=== PATIENT | male | born 1960 | race Hispanic/Latino ===

== ENCOUNTER 2019-03-24 19:34 | Inpatient (IN) | payer OTHER ==
[2019-03-24] MEDS ORDERED: SODIUM CHLORIDE 0.9% 500 ML 500 ML IV ONE (20:12)
--- NOTE | 2019-03-24 20:15 | Emergency Department Report ---
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 Patient apparently refused to take his medications. Patient denies this. Patient complains of right arm pain which is ongoing and worse with movement. Patient is oriented to hospital, self, day of the week, but not to year. States year is 1969.. Accu-Chek in route [address]. No previous medical record available for review. - Related Data Allergies Allergy/AdvReac Type Severity Reaction Status Date / Time No Known Allergies Allergy Unverified 03/24/19 20:19 ED Review of Systems ROS: Stated complaint: AMS,REFUSING TO TAKE MEDS Other details as noted in HPI Comment: All other systems reviewed and negative ED Physical Exam - Other Other exam information: General: No limitations, patient is alert in no acute distress Head exam: Atraumatic, normocephalic Eyes exam: Normal appearance, pupils equal reactive to light, extraocular movements intact ENT: Moist mucous membrane Neck exam: Normal inspection, full range of motion, no meningismus nontender Respiratory exam: Clear to auscultation bilateral Cardiovascular: Normal rate and rhythm Abdomen: Soft, nondistended, and nontender, with normal bowel sounds, no rebound, or guarding Extremity: Right arm held abducted and flexed at the elbow. Contracted with limited passive range. No active range of movement. Pain with palpation and movement. Back: Normal Inspection, full range of motion, no tenderness Neurologic: Alert, oriented 2, right-sided facial droop, dysarthria, right arm with minimal movement and contracted, no antigravity movement of right leg. Left arm and leg with 5/5 strength in intact sensation. Psychiatric: normal affect, normal mood Skin: Warm, dry, intact ED Course Vital Signs 03/24/19 03/24/19 03/24/19 20:02 20:09 20:21 Temperature 97.7 F Pulse Rate 94 H Respiratory 17 17 Rate Blood Pressure 97/69 Blood Pressure 97/69 [Left] O2 Sat by Pulse 99 98 98 Oximetry 03/24/19 03/24/19 03/24/19 20:31 21:30 22:00 Temperature Pulse Rate 95 H 85 87 Respiratory 13 19 16 Rate Blood Pressure 98/71 102/65 103/66 Blood Pressure [Left] O2 Sat by Pulse 95 96 Oximetry 03/24/19 22:30 Temperature Pulse Rate 80 Respiratory 14 Rate Blood Pressure 104/70 Blood Pressure [Left] O2 Sat by Pulse Oximetry - Consultations Consultation #1: 03/24/19 21:56 case d/w rubber process hand Dr. David suero mild elevation in troponin is sitting up in insufficiency. EKG reviewed in signs for acute ischemic findings. Repeat troponin is ordered. Aspirin provided - Lab Data Result diagrams: 03/24/19 20:45 03/24/19 20:45 Lab Results 03/24/19 03/24/19 03/24/19 Range/Units 20:45 20:45 20:45 WBC 11.0 (4.5-11.0) K/mm3 RBC 4.49 (3.65-5.03) M/mm3 Hgb 13.3 (11.8-15.2) gm/dl Hct 38.1 (35.5-45.6) % MCV 85 (84-94) fl MCH 30 (28-32) pg MCHC 35 H (32-34) % RDW 14.0 (13.2-15.2) % Plt Count 232 (140-440) K/mm3 Lymph % (Auto) 21.2 (13.4-35.0) % [place] % (Auto) 8.9 H (0.0-7.3) % Eos % (Auto) 1.5 (0.0-4.3) % Baso % (Auto) 0.6 (0.0-1.8) % Lymph # 2.3 (1.2-5.4) K/mm3 [place] # 1.0 H (0.0-0.8) K/mm3 Eos # 0.2 (0.0-0.4) K/mm3 Baso # 0.1 (0.0-0.1) K/mm3 Seg Neutrophils % 67.8 (40.0-70.0) % Seg Neutrophils # 7.4 (1.8-7.7) K/mm3 Sodium 126 L (137-145) mmol/L Potassium 4.7 (3.6-5.0) mmol/L Chloride 88.0 L (98-107) mmol/L Carbon Dioxide 21 L (22-30) mmol/L Anion Gap 22 mmol/L BUN 46 H (9-20) mg/dL Creatinine 1.8 H (0.8-1.5) mg/dL Estimated GFR 39 ml/min BUN/Creatinine Ratio 26 % Glucose 107 H (75-100) mg/dL Calcium 9.5 (8.4-10.2) mg/dL Total Bilirubin 0.50 (0.1-1.2) mg/dL AST 16 (5-40) units/L ALT 13 (7-56) units/L Alkaline Phosphatase 57 (35-129) units/L Troponin T (0.00-0.029) ng/mL Total Protein 7.0 (6.3-8.2) g/dL Albumin 3.7 L (3.9-5) g/dL Albumin/Globulin Ratio 1.1 % Triglycerides (2-149) mg/dL Cholesterol (50-199) mg/dL LDL Cholesterol Direct (50-130) mg/dL HDL Cholesterol (40-59) mg/dL Cholesterol/HDL Ratio % Valproic Acid 9.4 L (50-100) ug/mL 03/24/19 Range/Units 20:48 WBC (4.5-11.0) K/mm3 RBC (3.65-5.03) M/mm3 Hgb (11.8-15.2) gm/dl Hct (35.5-45.6) % MCV (84-94) fl MCH (28-32) pg MCHC (32-34) % RDW (13.2-15.2) % Plt Count (140-440) K/mm3 Lymph % (Auto) (13.4-35.0) % [place] % (Auto) (0.0-7.3) % Eos % (Auto) (0.0-4.3) % Baso % (Auto) (0.0-1.8) % Lymph # (1.2-5.4) K/mm3 [place] # (0.0-0.8) K/mm3 Eos # (0.0-0.4) K/mm3 Baso # (0.0-0.1) K/mm3 Seg Neutrophils % (40.0-70.0) % Seg Neutrophils # (1.8-7.7) K/mm3 Sodium (137-145) mmol/L Potassium (3.6-5.0) mmol/L Chloride (98-107) mmol/L Carbon Dioxide (22-30) mmol/L Anion Gap mmol/L BUN (9-20) mg/dL Creatinine (0.8-1.5) mg/dL Estimated GFR ml/min BUN/Creatinine Ratio % Glucose (75-100) mg/dL Calcium (8.4-10.2) mg/dL Total Bilirubin (0.1-1.2) mg/dL AST (5-40) units/L ALT (7-56) units/L Alkaline Phosphatase (35-129) units/L Troponin T 0.033 H (0.00-0.029) ng/mL Total Protein (6.3-8.2) g/dL Albumin (3.9-5) g/dL Albumin/Globulin Ratio % Triglycerides 197 H (2-149) mg/dL Cholesterol 131 (50-199) mg/dL LDL Cholesterol Direct 67 (50-130) mg/dL HDL Cholesterol 33 L (40-59) mg/dL Cholesterol/HDL Ratio 3.96 % Valproic Acid (50-100) ug/mL - EKG Data -: EKG Interpreted by Md EKG shows normal: sinus rhythm, ST-T waves (no stemi) - Radiology Data Radiology results: report reviewed xray right shoulder, right humerus, and right forearm are all without acute findings CT head/brain wo con INDICATION / CLINICAL INFORMATION: 58 years Male; recent cva, mild ams. TECHNIQUE: Routine CT head without contrast. All CT scans at this location are performed using CT dose reduction for ALARA by means of automated exposure control. COMPARISON: None. FINDINGS: BRAIN / INTRACRANIAL CONTENTS: Low density area seen in the gangliocapsular region on the left, extending towards the left lateral thalamic region. Old hemorrhage in this location might be consideration. Pre and postcontrast MRI of the brain might be helpful for further evaluation, if clinically warranted. There is minimal mass effect with this finding. No midline shift seen. This area measures approximately 2.7 cm craniocaudally. Otherwise, no acute hemorrhage, mass effect, midline shift, hydrocephalus, or acute, large territorial infarct. Minimal cerebral atrophy. There may be a small cavernous malformation in the inessa-punctate area of calcification noted. There are hacl-[id number] areas of decreased attenuation in the white matter of the cerebral hemispheres, as well as the gangliocapsular regions. These are nonspecific findings and may be related to microangiopathy (hypertension, diabetes, atherosclerosis), given the patient's age. It might be difficult to evaluate for small areas of ischemia without diffusion imaging by MRI. CRANIOCERVICAL JUNCTION: No significant abnormality. ORBITS: No significant abnormality of visualized orbits. SINUSES / MASTOIDS: Prior mastoidectomy suggested on the left. There is mild mucosal thickening in the remaining mastoids bilaterally. ADDITIONAL FINDINGS: Atherosclerotic disease is seen in the anterior circulation. IMPRESSION: 1. Changes in the left gangliocapsular region as described above. Pre and postcontrast MRI of the brain might be helpful for further evaluation. 2. Otherwise, no focal mass, hemorrhage, hydrocephalus, or acute, large te rritorial infarct seen. - Medical Decision Making Plan to admit the hospital for mild hyponatremia, renal insufficiency, dehydration, and elevation in troponin. EKG without acute ischemic findings as verified by on-call rubber process hand. Repeat troponin is pending. Patient provided aspirin. Will be admitted to hospice service for further treatment. Normal saline hydration order. Ua collection pending at dispo - Differential Diagnosis encephalopathy, dehydration, Critical Care Time: No Critical care attestation.: If time is entered above; I have spent that time in minutes in the direct care of this critically ill patient, excluding procedure time. ED Disposition Clinical Impression: Altered mental status, Hyponatremia, Renal insufficiency, Dehydration, Elevated troponin, History of hemorrhagic cerebrovascular accident (CVA) with residual deficit, Right sided weakness Disposition: OP ADMIT IP TO THIS HOSP Is pt being admited?: Yes Condition: Stable Time of Disposition: 23:06 (Dr Bennett/hosp)
[2019-03-24 20:59] LABS: Basophils # (Auto) 0.1 K/mm3 (0.0-0.1); Basophils % (Auto) 0.6 % (0.0-1.8); Eosinophils # (Auto) 0.2 K/mm3 (0.0-0.4); Eosinophils % (Auto) 1.5 % (0.0-4.3); Hematocrit 38.1 % (35.5-45.6); Hemoglobin 13.3 gm/dl (11.8-15.2); Lymphocytes # (Auto) 2.3 K/mm3 (1.2-5.4); Lymphocytes % (Auto) 21.2 % (13.4-35.0); Mean Corpuscular HGB Conc 35 % (32-34); Mean Corpuscular Volume 85 fl (84-94); Monocytes % (Auto) 8.9 % (0.0-7.3); Platelet Count 232 K/mm3 (140-440); Red Blood Count 4.49 M/mm3 (3.65-5.03)
--- NOTE | 2019-03-24 21:17 | XRay Report ---
RIGHT SHOULDER 3 VIEWS INDICATION / CLINICAL INFORMATION: arm pain, cva COMPARISON: None available. FINDINGS: BONES / JOINT(S): No acute fracture or subluxation. Mild AC joint DJD. SOFT TISSUES: No significant abnormality. ADDITIONAL FINDINGS: None. Signer Name: Grabiel Dhaliwal MD Signed: 03/24/2019 9:12 PM Workstation Name: [id number]
--- NOTE | 2019-03-24 21:19 | XRay Report ---
RIGHT FOREARM ONE VIEW INDICATION / CLINICAL INFORMATION: arm pain, cva COMPARISON: None available. FINDINGS: BONES / JOINT(S): No acute fracture or subluxation. No significant arthritis. SOFT TISSUES: No significant abnormality. ADDITIONAL FINDINGS: None. Signer Name: Grabiel Dhaliwal MD Signed: 03/24/2019 9:15 PM Workstation Name: [id number]
--- NOTE | 2019-03-24 21:20 | XRay Report ---
RIGHT HUMERUS ONE VIEW INDICATION / CLINICAL INFORMATION: arm pain cva COMPARISON: None available. FINDINGS: BONES / JOINT(S): No acute fracture or subluxation. No significant arthritis. SOFT TISSUES: No significant abnormality. ADDITIONAL FINDINGS: None. Signer Name: Grabiel Dhaliwal MD Signed: 03/24/2019 9:16 PM Workstation Name: [id number]
[2019-03-24 21:25] LABS: Albumin 3.7 g/dL (3.9-5); Calcium 9.5 mg/dL (8.4-10.2)
[2019-03-24] MEDS ORDERED: ASPIRIN 325 MG TAB PO ONE (21:40)
[2019-03-24 21:41] LABS: Chol/HDL Ratio 3.96 %
[2019-03-24] MEDS ORDERED: SODIUM CHLORIDE 0.9% 1000 ML 1,000 ML IV ONE (21:41)
--- NOTE | 2019-03-24 22:19 | Cat Scan Report ---
CT head/brain wo con INDICATION / CLINICAL INFORMATION: 58 years Male; recent cva, mild ams. TECHNIQUE: Routine CT head without contrast. All CT scans at this location are performed using CT dos e reduction for ALARA by means of automated exposure control. COMPARISON: None. FINDINGS: BRAIN / INTRACRANIAL CONTENTS: Low density area seen in the gangliocapsular region on the left, exten ding towards the left lateral thalamic region. Old hemorrhage in this location might be consideration . Pre and postcontrast MRI of the brain might be helpful for further evaluation, if clinically warran tee. There is minimal mass effect with this finding. No midline shift seen. This area measures approx imately 2.7 cm craniocaudally. Otherwise, no acute hemorrhage, mass effect, midline shift, hydrocephalus, or acute, large territoria l infarct. Minimal cerebral atrophy. There may be a small cavernous malformation in the inessa-punctate area of ca lcification noted. There are [id number]-[id number] areas of decreased attenuation in the white matter of the cerebral hemisph eres, as well as the gangliocapsular regions. These are nonspecific findings and may be related to mi croangiopathy (hypertension, diabetes, atherosclerosis), given the patient's age. It might be difficu lt to evaluate for small areas of ischemia without diffusion imaging by MRI. CRANIOCERVICAL JUNCTION: No significant abnormality. ORBITS: No significant abnormality of visualized orbits. SINUSES / MASTOIDS: Prior mastoidectomy suggested on the left. There is mild mucosal thickening in th e remaining mastoids bilaterally. ADDITIONAL FINDINGS: Atherosclerotic disease is seen in the anterior circulation. IMPRESSION: 1. Changes in the left gangliocapsular region as described above. Pre and postcontrast MRI of the bra in might be helpful for further evaluation. 2. Otherwise, no focal mass, hemorrhage, hydrocephalus, or acute, large territorial infarct seen. Signer Name: Praveen Evans MD, III Signed: 03/24/2019 10:15 PM Workstation Name: [id number]
[2019-03-25] MEDS ORDERED: MORPHINE 2 MG/1 ML INJ IV PRN (00:08)
[2019-03-25] MEDS ORDERED: MAGNESIUM HYDROXIDE (MOM) ORAL LIQD UDC PO PRN (00:08)
[2019-03-25] MEDS ORDERED: ONDANSETRON 4 MG/2 ML INJ IV PRN (00:08)
[2019-03-25 00:59] LABS: Basophils # (Auto) 0.1 K/mm3 (0.0-0.1); Basophils % (Auto) 0.5 % (0.0-1.8); Eosinophils # (Auto) 0.2 K/mm3 (0.0-0.4); Eosinophils % (Auto) 1.6 % (0.0-4.3); Hematocrit 35.3 % (35.5-45.6); Hemoglobin 12.5 gm/dl (11.8-15.2); Lymphocytes # (Auto) 2.4 K/mm3 (1.2-5.4); Lymphocytes % (Auto) 24.1 % (13.4-35.0); Mean Corpuscular HGB Conc 35 % (32-34); Mean Corpuscular Volume 84 fl (84-94); Monocytes # (Auto) 0.8 K/mm3 (0.0-0.8); Monocytes % (Auto) 7.8 % (0.0-7.3); Platelet Count 197 K/mm3 (140-440); Red Blood Count 4.18 M/mm3 (3.65-5.03); Red Cell Distribution Width 13.9 % (13.2-15.2)
[2019-03-25 01:18] LABS: Calcium 8.7 mg/dL (8.4-10.2)
[2019-03-25 01:26] LABS: Bacteria,Urine 1+ /HPF (Negative); Bilirubin,Urine NEG (Negative); Blood,Urine MOD (Negative); Color,Urine Yellow (Yellow); Urobilinogen,Urine < 2.0 mg/dL (<2.0)
[2019-03-25 01:28] LABS: WBC,Urine > 182.0 /HPF (0.0-6.0)
--- NOTE | 2019-03-25 02:20 | History and Physical Report ---
History of Present Illness Date of examination: 03/24/19 Date of admission: 03/25/19 00:12 Chief complaint: Altered mental status History of present illness: 58-year-old male with known history of CVA in the past with right-sided weakness, hypertension, history of depression and insomnia was brought into the emergency room today for a change in mental status. Patient is a resident of [facility] home was said to have been refusing his medicati ons and also has had some decreased oral intake over the past 24 hours. Patient denies any fever or chills, no nausea vomiting and no diarrhea. Denies any chest pain or shortness of breath. Denies any headache or dizziness. Patient became more alert upon arrival in the emergency room. Work-up reveals dehydration and a slightly elevated troponin on his lab test. Past History Past Medical History: hypertension, other (History of depression, history of UTI s, insomnia, muscle spasm) Past Surgical History: No surgical history Social history: other (Resides in a group home) Family history: no significant family history Medications and Allergies Allergies Allergy/AdvReac Type Severity Reaction Status Date / Time No Known Allergies Allergy Verified 03/25/19 00:27 Home Medications Medication Instructions Recorded Confirmed Last Taken Type Amlodipine Besylate [Norvasc] 10 mg PO DAILY 03/25/19 03/25/19 Unknown History Baclofen [Lioresal] 10 mg PO BID 03/25/19 03/25/19 Unknown History Colchicine 0.6 mg PO BID 03/25/19 03/25/[address] [Depakote Dr] 125 mg PO Q12HR 03/25/19 03/25/19 Unknown History Duloxetine HCl [Drizalma Sprinkle] 30 mg PO DAILY 03/25/19 03/25/19 Unknown History Gabapentin [Neurontin 250 mg/5 ml] 10 ml PO TID 03/25/19 03/25/19 Unknown History HYDROcodone/APAP 5-325 [[place] 1 each PO Q4HR PRN 03/25/19 03/25/19 Unknown History 5/325] Hydralazine HCl 25 mg PO DAILY 03/25/19 03/25/19 Unknown History LORazepam [Ativan] 2 mg PO Q6HR PRN 03/25/19 03/25/19 Unknown History Melatonin [Melatonin 5MG CAP] 5 mg PO QHS 03/25/19 03/25/19 Unknown History Tamsulosin [Flomax] 0.4 mg PO QHS 03/25/19 03/25/19 Unknown History carvediloL [Coreg] 12.5 mg PO BID 03/25/19 03/25/19 Unknown History lisinopriL [Zestril TAB] 40 mg PO QDAY 03/25/19 03/25/19 Unknown History Active Meds: Active Medications Acetaminophen (Tylenol) 650 mg PO Q4H PRN PRN Reason: Pain MILD(1-3)/Fever >100.5/CASTANEDA Aspirin (Ecotrin) 325 mg PO QDAY SELENA Sodium Chloride (Nacl 0.9% 1000 Ml) 1,000 mls @ 150 mls/hr IV ONCE ONE Stop: 03/25/19 04:20 Last Admin: 03/24/19 22:12 Dose: 150 mls/hr Documented by: Sodium Chloride (Nacl 0.9% 1000 Ml) 1,000 mls @ 125 mls/hr IV DIRECT SELENA Magnesium Hydroxide (Milk Of Magnesia) 30 ml PO Q4H PRN PRN Reason: Constipation Morphine Sulfate (Morphine) 2 mg IV Q5MIN PRN PRN Reason: Chest Pain unrelieved by NTG Ondansetron HCl (Zofran) 4 mg IV Q8H PRN PRN Reason: Nausea And Vomiting Sodium Chloride (Sodium Chloride Flush Syringe 10 Ml) 10 ml IV BID SELENA Sodium Chloride (Sodium Chloride Flush Syringe 10 Ml) 10 ml IV PRN PRN PRN Reason: LINE FLUSH Review of Systems Constitutional: poor appetite, no weight loss, no weight gain, no fever, no chills Ears, nose, mouth and throat: no nasal congestion Cardiovascular: no chest pain, no palpitations Respiratory: no cough, no shortness of breath Gastrointestinal: no nausea, no vomiting Genitourinary Male: no dysuria, no hematuria Integumentary: no rash, no pruritis Neurological: weakness, change in mentation, no syncope Exam - Constitutional Vitals: Temp Pulse Resp BP Pulse Ox 97.7 F 91 H 17 109/77 96 03/24/19 20:09 03/25/19 00:01 03/25/19 00:01 03/25/19 00:01 03/25/19 00:01 General appearance: Present: no acute distress, well-nourished - EENT Eyes: Present: PERRL, EOM intact ENT: hearing intact, clear oral mucosa, dentition normal - Neck Neck: Present: supple, normal ROM - Respiratory Respiratory effort: normal Respiratory: bilateral: CTA - Cardiovascular Rhythm: regular Heart Sounds: Present: S1 & S2 - Extremities Extremities: no ischemia, pulses intact, pulses symmetrical, No edema, abnormal (Right upper extremity slightly contracted) Peripheral Pulses: within normal limits - Abdominal General gastrointestinal: Present: soft, non-tender, non-distended - Integumentary Integumentary: Present: clear, warm, dry - Musculoskeletal Musculoskeletal: strength equal bilaterally - Psychiatric Psychiatric: appropriate mood/affect, intact judgment & insight, cooperative - Neurologic Neurologic: CNII-XII intact, focal deficits (Right-sided weakness) Results - Labs CBC & Chem 7: 03/25/19 00:44 03/25/19 00:44 Labs: Abnormal lab results 03/24/19 03/24/19 03/24/19 Range/Units 20:45 20:45 20:45 Hct (35.5-45.6) % MCHC 35 H (32-34) % [place] % (Auto) 8.9 H (0.0-7.3) % [place] # 1.0 H (0.0-0.8) K/mm3 Sodium 126 L (137-145) mmol/L Chloride 88.0 L (98-107) mmol/L Carbon Dioxide 21 L (22-30) mmol/L BUN 46 H (9-20) mg/dL Creatinine 1.8 H (0.8-1.5) mg/dL Glucose 107 H (75-100) mg/dL Troponin T (0.00-0.029) ng/mL Albumin 3.7 L (3.9-5) g/dL Triglycerides (2-149) mg/dL HDL Cholesterol (40-59) mg/dL Urine WBC (Auto) (0.0-6.0) /HPF Valproic Acid 9.4 L (50-100) ug/mL 03/24/19 03/25/19 03/25/19 Range/Units 20:48 00:44 00:44 Hct 35.3 L (35.5-45.6) % MCHC 35 H (32-34) % [place] % (Auto) 7.8 H (0.0-7.3) % [place] # (0.0-0.8) K/mm3 Sodium 127 L (137-145) mmol/L Chloride 92.7 L (98-107) mmol/L Carbon Dioxide 19 L (22-30) mmol/L BUN 45 H (9-20) mg/dL Creatinine 1.7 H (0.8-1.5) mg/dL Glucose (75-100) mg/dL Troponin T 0.033 H (0.00-0.029) ng/mL Albumin (3.9-5) g/dL Triglycerides 197 H (2-149) mg/dL HDL Cholesterol 33 L (40-59) mg/dL Urine WBC (Auto) (0.0-6.0) /HPF Valproic Acid (50-100) ug/mL 03/25/19 Range/Units 00:50 Hct (35.5-45.6) % MCHC (32-34) % [place] % (Auto) (0.0-7.3) % [place] # (0.0-0.8) K/mm3 Sodium (137-145) mmol/L Chloride (98-107) mmol/L Carbon Dioxide (22-30) mmol/L BUN (9-20) mg/dL Creatinine (0.8-1.5) mg/dL Glucose (75-100) mg/dL Troponin T (0.00-0.029) ng/mL Albumin (3.9-5) g/dL Triglycerides (2-149) mg/dL HDL Cholesterol (40-59) mg/dL Urine WBC (Auto) > 182.0 H (0.0-6.0) /HPF Valproic Acid (50-100) ug/mL Assessment and Plan - Patient Problems (1) Altered mental status Current Visit: Yes Status: Acute Plan to address problem: Etiology is unclear. Probably secondary to dehydration. Will monitor mental status. (2) Dehydration Current Visit: Yes Status: Acute Plan to address problem: Placed on IV fluid. Will monitor BUN and creatinine. (3) Elevated troponin Current Visit: Yes Status: Acute Plan to address problem: She has denied any chest pain however will monitor cardiac enzymes and EKG. (4) Right sided weakness Current Visit: Yes Status: Acute Plan to address problem: Status post CVA in the past. Appears stable (5) DVT prophylaxis Current Visit: Yes Status: Acute Plan to address problem: Patient placed on subcutaneous heparin. (6) Full code status Current Visit: Yes Status: Acute
[2019-03-25] MEDS: ACETAMINOPHEN 325 MG TAB PO PRN ×2 (03:50→06:15)
[2019-03-25] MEDS ORDERED: HYDROcodone/ACETAMINOPHEN 5-325 MG TAB PO PRN (05:10)
[2019-03-25] MEDS: HEPARIN 5,000 UNIT/1 ML VIAL SUB-Q SCH ×3 (06:15→22:50)
[2019-03-25] MEDS: GABAPENTIN 500 MG/10 ML ORAL LIQD PO SCH ×3 (09:00→20:00)
[2019-03-25] MEDS: SODIUM CHLORIDE 0.9% 1000 ML 1,000 ML IV SCH (09:19)
[2019-03-25] MEDS ORDERED: LISINOPRIL 40 MG TAB PO SCH (10:00)
[2019-03-25] MEDS ORDERED: COLCHICINE 0.6 MG CAP PO SCH ×2 (10:00→10:15)
[2019-03-25] MEDS: amLODIPine 10 MG TAB PO SCH (10:00)
[2019-03-25] MEDS ORDERED: DULOXETINE HCL 30 MG PO SCH (10:00)
[2019-03-25] MEDS ORDERED: HYDRALAZINE HCL 25 MG PO SCH (10:00)
[2019-03-25] MEDS: DULoxetine 30 MG CAP PO SCH (10:00)
[2019-03-25] MEDS: hydrALAZINE 25 MG TAB PO SCH (10:00)
[2019-03-25] MEDS: carvediloL 12.5 MG TAB PO SCH ×2 (10:00→22:49)
[2019-03-25] MEDS: BACLOFEN 10 MG TAB PO SCH ×2 (10:00→22:35)
[2019-03-25] MEDS: DIVALPROEX DR 125 MG TAB PO SCH ×2 (10:00→22:36)
--- NOTE | 2019-03-25 10:00 | Consultation ---
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 He is previously unknown to our practice. He presented to the hospital from [facility] for evaluation of AMS. Patient apparently refused to take his medications. Pt was found to have elevated troponin and thus cardiology has been consulted. Pt denies any cardiac complaints. Past History Past Medical History: hypertension, other (History of depression, history of UTIs, insomnia, muscle spasm) Past Surgical History: No surgical history Social history: other (Resides in a snf) Family history: no significant family history Medications and Allergies Allergies Allergy/AdvReac Type Severity Reaction Status Date / Time No Known Allergies Allergy Verified 03/25/19 00:27 Home Medications Medication Instructions Recorded Confirmed Last Taken Type Amlodipine Besylate [Norvasc] 10 mg PO DAILY 03/25/19 03/25/19 Unknown History Baclofen [Lioresal] 10 mg PO BID 03/25/19 03/25/19 Unknown History Colchicine 0.6 mg PO BID 03/25/19 03/25/[address] [Brigitte Lundberg] 125 mg PO Q12HR 03/25/19 03/25/19 Unknown History Duloxetine HCl [Drizalma Sprinkle] 30 mg PO DAILY 03/25/19 03/25/19 Unknown History Gabapentin [Neurontin 250 mg/5 ml] 10 ml PO TID 03/25/19 03/25/19 Unknown History HYDROcodone/APAP 5-325 [Dalton 1 each PO Q4HR PRN 03/25/19 03/25/19 Unknown History 5/325] Hydralazine HCl 25 mg PO DAILY 03/25/19 03/25/19 Unknown History LORazepam [Ativan] 2 mg PO Q6HR PRN 03/25/19 03/25/19 Unknown History Melatonin [Melatonin 5MG CAP] 5 mg PO QHS 03/25/19 03/25/19 Unknown History Tamsulosin [Flomax] 0.4 mg PO QHS 03/25/19 03/25/19 Unknown History carvediloL [Coreg] 12.5 mg PO BID 03/25/19 03/25/19 Unknown History lisinopriL [Zestril TAB] 40 mg PO QDAY 03/25/19 03/25/19 Unknown History Active Meds: Active Medications Acetaminophen (Tylenol) 650 mg PO Q4H PRN PRN Reason: Pain MILD(1-3)/Fever >100.5/CASTANEDA Last Admin: 03/25/19 06:15 Dose: 650 mg Documented by: Acetaminophen/Hydrocodone Bitart (Dalton 5/325) 1 each PO Q4HR PRN PRN Reason: PAIN Last Admin: 03/25/19 08:26 Dose: 1 each Documented by: Amlodipine Besylate (Amlodipine) 10 mg PO DAILY [facility] Aspirin (Ecotrin) 325 mg PO QDAY [facility] Atorvastatin Calcium (Lipitor) 40 mg PO QHS [facility] Baclofen (Lioresal) 10 mg PO BID [facility] Carvedilol (Coreg) 12.5 mg PO BID [facility] Colchicine (Colchicine) 0.6 mg PO BID [facility] Divalproex Sodium (Depakote Dr) 125 mg PO Q12HR [facility] Duloxetine HCl (Cymbalta) 30 mg PO DAILY [facility] Gabapentin (Gabapentin) 500 mg PO TID [facility] Heparin Sodium (Porcine) (Heparin) 5,000 unit SUB-Q Q8HR [facility] Last Admin: 03/25/19 06:15 Dose: 5,000 unit Documented by: Hydralazine HCl (Apresoline) 25 mg PO DAILY [facility] Sodium Chloride (Nacl 0.9% 1000 Ml) 1,000 mls @ 125 mls/hr IV DIRECT [facility] Last Admin: 03/25/19 09:19 Dose: 125 mls/hr Documented by: Lorazepam (Ativan) 2 mg PO Q6HR PRN PRN Reason: Agitation Magnesium Hydroxide (Milk Of Magnesia) 30 ml PO Q4H PRN PRN Reason: Constipation Melatonin (Melatonin) 5 mg PO QHS [facility] Morphine Sulfate (Morphine) 2 mg IV Q5MIN PRN PRN Reason: Chest Pain unrelieved by NTG Ondansetron HCl (Zofran) 4 mg IV Q8H PRN PRN Reason: Nausea And Vomiting Sodium Chloride (Sodium Chloride Flush Syringe 10 Ml) 10 ml IV BID [facility] Sodium Chloride (Sodium Chloride Flush Syringe 10 Ml) 10 ml IV PRN PRN PRN Reason: LINE FLUSH Last Admin: 03/25/19 03:52 Dose: 10 ml Documented by: Tamsulosin HCl (Flomax) 0.4 mg PO QHS [facility] Review of Systems Constitutional: no weight loss, no weight gain, no fever, no chills, no sweats Ears, nose, mouth and throat: no ear pain, no nose pain, no sinus pressure, no sinus pain Cardiovascular: no chest pain, no orthopnea, no palpitations, no rapid/irregular heart beat, no edema, no syncope, no lightheadedness, no shortness of breath, no dyspnea on exertion Respiratory: no cough, no shortness of breath, no dyspnea on exertion, no congestion, no wheezing, no pain on inspiration Gastrointestinal: no abdominal pain, no nausea, no vomiting, no diarrhea, no constipation, no change in bowel habits Genitourinary Male: no dysuria, no hematuria, no flank pain, no discharge, no urinary frequency, no urinary hesitancy Musculoskeletal: no neck stiffness, no neck pain, no shooting arm pain, no arm numbness/tingling, no low back pain, no shooting leg pain Integumentary: no rash, no pruritis, no redness, no sores, no wounds Neurological: weakness (right-sided, chronic), change in mentation, no head injury, no paralysis, no parathesias, no numbness, no tingling, no seizures, no syncope Endocrine: no cold intolerance, no heat intolerance Hematologic/Lymphatic: no easy bruising, no easy bleeding Allergic/Immunologic: no urticaria Physical Examination Vital Signs Pulse Ox 99 03/24/19 20:02 General appearance: no acute distress, other (lethargic) HEENT: Positive: PERRL Neck: Positive: neck supple, trachea midline Cardiac: Positive: Reg Rate and Rhythm, S1/S2 Lungs: Positive: Decreased Breath Sounds Neuro: Positive: Weakness (right-sided from prior ICH), Other (lethargic) Abdomen: Negative: Tender Skin: Negative: Rash Musculoskeletal: No Pain Extremities: Absent: edema Results 03/25/19 00:44 03/25/19 00:44 Cardiac Enzymes 03/24/19 Range/Units 20:45 AST 16 (5-40) units/L Lipids 03/24/19 Range/Units 20:48 Triglycerides 197 H (2-149) mg/dL Cholesterol 131 (50-199) mg/dL HDL Cholesterol 33 L (40-59) mg/dL Cholesterol/HDL Ratio 3.96 % CBC 03/24/19 03/25/19 Range/Units 20:45 00:44 WBC 11.0 10.0 (4.5-11.0) K/mm3 RBC 4.49 4.18 (3.65-5.03) M/mm3 Hgb 13.3 12.5 (11.8-15.2) gm/dl Hct 38.1 35.3 L (35.5-45.6) % Plt Count 232 197 (140-440) K/mm3 Lymph # 2.3 2.4 (1.2-5.4) K/mm3 [place] # 1.0 H 0.8 (0.0-0.8) K/mm3 Eos # 0.2 0.2 (0.0-0.4) K/mm3 Baso # 0.1 0.1 (0.0-0.1) K/mm3 Comprehensive Metabolic Panel 03/24/19 03/25/19 Range/Units 20:45 00:44 Sodium 126 L 127 L (137-145) mmol/L Potassium 4.7 4.8 (3.6-5.0) mmol/L Chloride 88.0 L 92.7 L (98-107) mmol/L Carbon Dioxide 21 L 19 L (22-30) mmol/L BUN 46 H 45 H (9-20) mg/dL Creatinine 1.8 H 1.7 H (0.8-1.5) mg/dL Glucose 107 H 87 (75-100) mg/dL Calcium 9.5 8.7 (8.4-10.2) mg/dL AST 16 (5-40) units/L ALT 13 (7-56) units/L Alkaline Phosphatase 57 (35-129) units/L Total Protein 7.0 (6.3-8.2) g/dL Albumin 3.7 L (3.9-5) g/dL - Imaging and Cardiology Echo: pending EKG: report reviewed, image reviewed EKG interpretations - Telemetry EKG Rhythm: Sinus Rhythm - EKG Sinus rhythms and dysrhythmias: sinus rhythm Repolarization changes or abnormalities: nonspecific abnormality, ST segment, and/or T wave Assessment and Plan Keesha noted to be trending upwards. Pt denies any cardiac complaints and ECG with no acute ischemic changes and pt has h/o ICH and thus will not initiate heparin gtt at this time. Cont to trend Keesha and f/u ECG in AM. Obtain echo and plan for lexiscan MPI stress test in AM. NPO after MN. Cont BB, ASA, statin. No ACEI/ARB at this time in setting of renal insufficiency. The patient has been seen in conjunction with Dr. Martínez who agrees with the assessment and plan of care. - Patient Problems (1) Altered mental status Current Visit: Yes Status: Acute (2) NSTEMI (non-ST elevated myocardial infarction) Current Visit: Yes Status: Acute (3) UTI (urinary tract infection) Current Visit: Yes Status: Acute (4) Renal insufficiency Current Visit: Yes Status: Acute (5) Dehydration Current Visit: Yes Status: Acute (6) Hyponatremia Current Visit: Yes Status: Acute (7) HTN (hypertension) Current Visit: Yes Status: Chronic (8) History of hemorrhagic cerebrovascular accident (CVA) with residual deficit Current Visit: Yes Status: Chronic
--- NOTE | 2019-03-25 17:52 | Event Note ---
Date: 03/25/19 Early admission Elevated Troponin For Lexiscan in AM No Heparin b/c of Hx of ICH UTI
[2019-03-25] MEDS: cefTRIAXone/NS 2 GM/100 ML 2 GM/100 ML BAG IV SCH (19:30)
[2019-03-25] MEDS ORDERED: MELATONIN 5 MG PO SCH (22:00)
[2019-03-25] MEDS: MELATONIN 5 MG TAB PO SCH (22:36)
[2019-03-25] MEDS: TAMSULOSIN 0.4 MG CAP PO SCH (22:50)
[2019-03-26] MEDS: HEPARIN 5,000 UNIT/1 ML VIAL SUB-Q SCH ×3 (06:14→22:26)
[2019-03-26] MEDS ORDERED: REGADENOSON 0.4 MG/5 ML INJ IV ONE ×2 (06:48→06:54)
[2019-03-26] MEDS: GABAPENTIN 500 MG/10 ML ORAL LIQD PO SCH ×3 (08:00→22:41)
[2019-03-26 08:28] LABS: Basophils % (Auto) 0.5 % (0.0-1.8); Eosinophils # (Auto) 0.1 K/mm3 (0.0-0.4); Eosinophils % (Auto) 1.3 % (0.0-4.3); Hematocrit 39.6 % (35.5-45.6); Hemoglobin 13.3 gm/dl (11.8-15.2); Lymphocytes # (Auto) 1.8 K/mm3 (1.2-5.4); Lymphocytes % (Auto) 18.5 % (13.4-35.0); Mean Corpuscular HGB Conc 34 % (32-34); Mean Corpuscular Volume 87 fl (84-94); Monocytes # (Auto) 0.6 K/mm3 (0.0-0.8); Monocytes % (Auto) 6.4 % (0.0-7.3); Platelet Count 187 K/mm3 (140-440); Red Blood Count 4.55 M/mm3 (3.65-5.03); Red Cell Distribution Width 14.4 % (13.2-15.2)
[2019-03-26 08:32] LABS: INR 1.07 (0.87-1.13)
[2019-03-26 08:47] LABS: BUN/Creatinine Ratio 27; Blood Urea Nitrogen 30 mg/dL (9-20); Hemolysis Index 24
--- NOTE | 2019-03-26 11:06 | Progress Note ---
<KHUSHBU CARABALLO - Last Filed: 03/26/19 12:28> Assessment and Plan TTE reviewed - EF 45-50%, impaired relaxation, mild LVH. Cont BB, ASA, statin. No ACEI/ARB at this time in setting of renal insufficiency. s/p lexiscan MPI stress test this AM which was negative. currently stable cardiac status. pt may discharge from cardiac perspective. recommend pt follow up in our office with Dr. Martínez within 1-2 weeks of discharge ([phone]). The patient has been seen in conjunction with Dr. Martínez who agrees with the assessment and plan of care. - Patient Problems (1) Altered mental status Current Visit: Yes Status: Acute (2) NSTEMI (non-ST elevated myocardial infarction) Current Visit: Yes Status: Acute (3) UTI (urinary tract infection) Current Visit: Yes Status: Acute (4) Renal insufficiency Current Visit: Yes Status: Acute (5) Dehydration Current Visit: Yes Status: Acute (6) Hyponatremia Current Visit: Yes Status: Acute (7) HTN (hypertension) Current Visit: Yes Status: Chronic (8) History of hemorrhagic cerebrovascular accident (CVA) with residual deficit Current Visit: Yes Status: Chronic Subjective Date of service: 03/26/19 Principal diagnosis: elevated trop Interval history: pt for stress test Objective Last Vital Signs Temp 97.3 F L 03/26/19 04:10 Pulse 81 03/26/19 04:10 Resp 20 03/26/19 04:10 BP 117/78 03/26/19 04:10 Pulse Ox 97 03/26/19 04:10 - Physical Examination General: No Apparent Distress HEENT: Positive: PERRL Neck: Positive: neck supple, trachea midline Cardiac: Positive: Reg Rate and Rhythm, S1/S2 Lungs: Positive: Decreased Breath Sounds Neuro: Positive: Weakness (right-sided from prior ICH), Other (lethargic) Abdomen: Negative: Tender Skin: Negative: Rash Musculoskeletal: No Pain Extremities: Absent: edema - Labs and Meds Coagulation 03/26/19 Range/Units 06:28 PT 14.0 (12.2-14.9) Sec. INR 1.07 (0.87-1.13) APTT 35.0 (24.2-36.6) Sec. CBC 03/26/19 Range/Units 06:28 WBC 9.9 (4.5-11.0) K/mm3 RBC 4.55 (3.65-5.03) M/mm3 Hgb 13.3 (11.8-15.2) gm/dl Hct 39.6 (35.5-45.6) % Plt Count 187 (140-440) K/mm3 Lymph # 1.8 (1.2-5.4) K/mm3 [place] # 0.6 (0.0-0.8) K/mm3 Eos # 0.1 (0.0-0.4) K/mm3 Baso # 0.0 (0.0-0.1) K/mm3 Comprehensive Metabolic Panel 03/26/19 Range/Units 06:28 Sodium 139 D (137-145) mmol/L Potassium 4.8 (3.6-5.0) mmol/L Chloride 105.8 (98-107) mmol/L Carbon Dioxide 16 L (22-30) mmol/L BUN 30 H (9-20) mg/dL Creatinine 1.1 (0.8-1.5) mg/dL Glucose 68 L (75-100) mg/dL Calcium 9.0 (8.4-10.2) mg/dL - Imaging and Cardiology EKG: report reviewed, image reviewed Echo: pending - EKG Sinus rhythms and dysrhythmias: sinus rhythm Repolarization changes or abnormalities: nonspecific abnormality, ST segment, and/or T wave <LATA MARTÍNEZ R - Last Filed: 03/26/19 17:22> Assessment and Plan ams secondary to metabolic encelpathy from dehydration nstemi type 2 htn chol cva Objective Vital Signs Temp Pulse Resp Resp BP Pulse Ox 03/26/19 13:51 97.9 F 90 16 139/100 99 03/26/19 11:14 149/85 03/26/19 11:12 138/85 03/26/19 11:10 139/85 03/26/19 11:09 147/86 03/26/19 11:02 152/103 03/26/19 08:45 142/97 03/26/19 04:10 97.3 F L 81 20 117/78 97 03/26/19 01:00 18 03/25/19 22:49 98 H 152/98 03/25/19 22:00 20 03/25/19 21:29 97.9 F 107 H 18 156/103 97 - Labs and Meds Coagulation 03/26/19 Range/Units 06:28 PT 14.0 (12.2-14.9) Sec. INR 1.07 (0.87-1.13) APTT 35.0 (24.2-36.6) Sec. CBC 03/26/19 Range/Units 06:28 WBC 9.9 (4.5-11.0) K/mm3 RBC 4.55 (3.65-5.03) M/mm3 Hgb 13.3 (11.8-15.2) gm/dl Hct 39.6 (35.5-45.6) % Plt Count 187 (140-440) K/mm3 Lymph # 1.8 (1.2-5.4) K/mm3 [place] # 0.6 (0.0-0.8) K/mm3 Eos # 0.1 (0.0-0.4) K/mm3 Baso # 0.0 (0.0-0.1) K/mm3 Comprehensive Metabolic Panel 03/26/19 Range/Units 06:28 Sodium 139 D (137-145) mmol/L Potassium 4.8 (3.6-5.0) mmol/L Chloride 105.8 (98-107) mmol/L Carbon Dioxide 16 L (22-30) mmol/L BUN 30 H (9-20) mg/dL Creatinine 1.1 (0.8-1.5) mg/dL Glucose 68 L (75-100) mg/dL Calcium 9.0 (8.4-10.2) mg/dL
--- NOTE | 2019-03-26 13:17 | Treadmill Report ---
NUCLEAR PERFUSION STUDY REASON FOR STUDY: Abnormal troponin. READING PHYSICIAN: Dr. Martínez. IMAGING PROTOCOL: The patient received 10 mCi of Technetium 99m Tetrofosmin for resting image and 28 mCi of Technetium 99m Tetrofosmin for stress imaging. The imaging for the whole procedure was completed 30-90 minutes following the initial injection of Technetium 99m Tetrofosmin. The SPECT imaging in the 180 degree arc was performed in the right anterior oblique projection. Computerized reconstruction of the images was performed for analysis. IMAGING RESULTS: Normal cavity size from stress to rest. Normal distribution of radionuclide in the anterior, inferior, septal, and apical regions. Gated SPECT, EF 50%. The patient infused Lexiscan with no EKG changes. SUMMARY: 1. Negative Lexiscan EKG. 2. Normal rest and stress myocardial perfusion scan. No significant stress ischemia. No wall motion abnormality. Gated SPECT, EF 50%. JOB# [id number] CAMERON/NTS
[2019-03-26] MEDS: DULoxetine 30 MG CAP PO SCH (14:36)
[2019-03-26] MEDS: ASPIRIN EC 325 MG TAB PO SCH (14:37)
[2019-03-26] MEDS: BACLOFEN 10 MG TAB PO SCH ×2 (14:37→22:27)
[2019-03-26] MEDS: hydrALAZINE 25 MG TAB PO SCH (14:37)
[2019-03-26] MEDS: carvediloL 12.5 MG TAB PO SCH ×2 (14:37→22:27)
[2019-03-26] MEDS: DIVALPROEX DR 125 MG TAB PO SCH ×2 (14:38→22:26)
[2019-03-26] MEDS: amLODIPine 10 MG TAB PO SCH (14:38)
[2019-03-26] MEDS: cefTRIAXone/NS 2 GM/100 ML 2 GM/100 ML BAG IV SCH (14:48)
[2019-03-26] MEDS: SODIUM CHLORIDE 0.9% 1000 ML 1,000 ML IV SCH (19:08)
[2019-03-26] MEDS: COLCHICINE 0.6 MG CAP PO SCH (22:26)
[2019-03-26] MEDS: MELATONIN 5 MG TAB PO SCH (22:27)
[2019-03-26] MEDS: TAMSULOSIN 0.4 MG CAP PO SCH (22:27)
[2019-03-27] MEDS: LORazepam 2 MG TAB PO PRN ×2 (00:33→14:11)
[2019-03-27] MEDS: HEPARIN 5,000 UNIT/1 ML VIAL SUB-Q SCH ×3 (07:17→23:00)
[2019-03-27] MEDS: SODIUM CHLORIDE 0.9% 1000 ML 1,000 ML IV SCH (07:17)
[2019-03-27] MEDS: GABAPENTIN 500 MG/10 ML ORAL LIQD PO SCH ×3 (08:00→23:00)
[2019-03-27] MEDS: ASPIRIN EC 325 MG TAB PO SCH (10:00)
[2019-03-27] MEDS: COLCHICINE 0.6 MG CAP PO SCH ×2 (10:00→22:59)
[2019-03-27] MEDS: amLODIPine 10 MG TAB PO SCH (10:00)
[2019-03-27] MEDS: carvediloL 12.5 MG TAB PO SCH ×2 (10:00→23:14)
[2019-03-27] MEDS: DIVALPROEX DR 125 MG TAB PO SCH ×2 (10:00→22:58)
[2019-03-27] MEDS: cefTRIAXone/NS 2 GM/100 ML 2 GM/100 ML BAG IV SCH (10:00)
[2019-03-27] MEDS: hydrALAZINE 25 MG TAB PO SCH (10:00)
[2019-03-27] MEDS: DULoxetine 30 MG CAP PO SCH (10:00)
[2019-03-27] MEDS: BACLOFEN 10 MG TAB PO SCH ×2 (10:00→22:59)
--- NOTE | 2019-03-27 10:50 | Progress Note ---
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 Unsure the patient's baseline mental status. Toxic metabolic encephalopathy. Etiology secondary to UTI. UTI. Follow-up blood and urine culture. Continue antibiotics. Hypertension. Resume antihypertensive medications. Elevated troponin. Cont BB, ASA, statin. No ACEI/ARB at this time in setting of renal insufficiency. s/p lexiscan MPI stress test this AM which was negative. History Interval history: Patient still appears confused. Does not follow commands. Somnolent and lethargic Hospitalist Physical - Constitutional Vitals: Temp Pulse Resp BP Pulse Ox 98.1 F 88 18 143/94 100 03/27/19 05:25 03/27/19 05:25 03/27/19 05:25 03/27/19 05:25 03/27/19 05:25 General appearance: Present: no acute distress, other (lethargic) - EENT Eyes: Present: PERRL, EOM intact ENT: hearing intact, clear oral mucosa, dentition normal - Neck Neck: Present: supple, normal ROM - Respiratory Respiratory effort: normal Respiratory: bilateral: CTA - Cardiovascular Rhythm: regular Heart Sounds: Present: S1 & S2. Absent: gallop, rub - Extremities Extremities: no ischemia, No edema, Full ROM - Abdominal General gastrointestinal: soft, non-tender, non-distended, normal bowel sounds - Integumentary Integumentary: Present: clear, warm, dry - Neurologic Neurologic: CNII-XII intact, moves all extremities Results - Labs CBC & Chem 7: 03/26/19 06:28 03/26/19 06:28 Labs: Laboratory Last Values WBC 9.9 K/mm3 (4.5-11.0) 03/26/19 06:28 RBC 4.55 M/mm3 (3.65-5.03) 03/26/19 06:28 Hgb 13.3 gm/dl (11.8-15.2) 03/26/19 06:28 Hct 39.6 % (35.5-45.6) 03/26/19 06:28 MCV 87 fl (84-94) 03/26/19 06:28 MCH 29 pg (28-32) 03/26/19 06:28 MCHC 34 % (32-34) 03/26/19 06:28 RDW 14.4 % (13.2-15.2) 03/26/19 06:28 Plt Count 187 K/mm3 (140-440) 03/26/19 06:28 Lymph % (Auto) 18.5 % (13.4-35.0) 03/26/19 06:28 [place] % (Auto) 6.4 % (0.0-7.3) 03/26/19 06:28 Eos % (Auto) 1.3 % (0.0-4.3) 03/26/19 06:28 Baso % (Auto) 0.5 % (0.0-1.8) 03/26/19 06:28 Lymph # 1.8 K/mm3 (1.2-5.4) 03/26/19 06:28 [place] # 0.6 K/mm3 (0.0-0.8) 03/26/19 06:28 Eos # 0.1 K/mm3 (0.0-0.4) 03/26/19 06:28 Baso # 0.0 K/mm3 (0.0-0.1) 03/26/19 06:28 Seg Neutrophils % 73.3 % (40.0-70.0) H 03/26/19 06:28 Seg Neutrophils # 7.3 K/mm3 (1.8-7.7) 03/26/19 06:28 PT 14.0 Sec. (12.2-14.9) 03/26/19 06:28 INR 1.07 (0.87-1.13) 03/26/19 06:28 APTT 35.0 Sec. (24.2-36.6) 03/26/19 06:28 Sodium 139 mmol/L (137-145) D 03/26/19 06:28 Potassium 4.8 mmol/L (3.6-5.0) 03/26/19 06:28 Chloride 105.8 mmol/L (98-107) 03/26/19 06:28 Carbon Dioxide 16 mmol/L (22-30) L 03/26/19 06:28 Anion Gap 22 mmol/L 03/26/19 06:28 BUN 30 mg/dL (9-20) H 03/26/19 06:28 Creatinine 1.1 mg/dL (0.8-1.5) 03/26/19 06:28 Estimated GFR > 60 ml/min 03/26/19 06:28 BUN/Creatinine Ratio 27 % 03/26/19 06:28 Glucose 68 mg/dL (75-100) L 03/26/19 06:28 Calcium 9.0 mg/dL (8.4-10.2) 03/26/19 06:28 Total Bilirubin 0.50 mg/dL (0.1-1.2) 03/24/19 20:45 AST 16 units/L (5-40) 03/24/19 20:45 ALT 13 units/L (7-56) 03/24/19 20:45 Alkaline Phosphatase 57 units/L (35-129) 03/24/19 20:45 Troponin T 0.093 ng/mL (0.00-0.029) H 03/25/19 15:27 Total Protein 7.0 g/dL (6.3-8.2) 03/24/19 20:45 Albumin 3.7 g/dL (3.9-5) L 03/24/19 20:45 Albumin/Globulin Ratio 1.1 % 03/24/19 20:45 Triglycerides 197 mg/dL (2-149) H 03/24/19 20:48 Cholesterol 131 mg/dL (50-199) 03/24/19 20:48 LDL Cholesterol Direct 67 mg/dL (50-130) 03/24/19 20:48 HDL Cholesterol 33 mg/dL (40-59) L 03/24/19 20:48 Cholesterol/HDL Ratio 3.96 % 03/24/19 20:48 Urine Color Yellow (Yellow) 03/25/19 00:50 Urine Turbidity Turbid (Clear) 03/25/19 00:50 Urine pH 6.0 (5.0-7.0) 03/25/19 00:50 Ur Specific [place] 1.009 (1.003-1.030) 03/25/19 00:50 Urine Protein 100 mg/dl mg/dL (Negative) 03/25/19 00:50 Urine Glucose (UA) Neg mg/dL (Negative) 03/25/19 00:50 Urine Ketones Tr mg/dL (Negative) 03/25/19 00:50 Urine Blood Mod (Negative) 03/25/19 00:50 Urine Nitrite Pos (Negative) 03/25/19 00:50 Urine Bilirubin Neg (Negative) 03/25/19 00:50 Urine Urobilinogen < 2.0 mg/dL (<2.0) 03/25/19 00:50 Ur Leukocyte Esterase Lg (Negative) 03/25/19 00:50 Urine WBC (Auto) > 182.0 /HPF (0.0-6.0) H 03/25/19 00:50 Urine RBC (Auto) 47.0 /HPF (0.0-6.0) 03/25/19 00:50 Urine Bacteria (Auto) 1+ /HPF (Negative) 03/25/19 00:50 Urine WBC Clumps 2+ /HPF 03/25/19 00:50 Valproic Acid 9.4 ug/mL (50-100) L 03/24/19 20:45 Active Medications - Current Medications Current Medications: Generic Name Dose Route Start Last Admin Trade Name Freq PRN Reason Stop Dose Admin Acetaminophen 650 mg 03/25/19 00:08 03/25/19 06:15 Tylenol PO 650 mg Q4H PRN Administration Pain MILD(1-3)/Fever >100.5/CASTANEDA Acetaminophen/Hydrocodone Bitart 1 each 03/25/19 05:10 03/25/19 08:26 Barry 5/325 PO 1 each Q4HR PRN Administration Pain, Moderate (4-6) Amlodipine Besylate 10 mg 03/25/19 10:00 03/26/19 14:38 Amlodipine PO 10 mg DAILY SELENA Administration Aspirin 325 mg 03/26/19 10:00 03/26/19 14:37 Ecotrin PO 325 mg QDAY SELENA Administration Atorvastatin Calcium 40 mg 03/25/19 22:00 03/26/19 22:27 Lipitor PO 40 mg QHS SELENA Administration Baclofen 10 mg 03/25/19 10:00 03/26/19 22:27 Lioresal PO 10 mg BID SELENA Administration Carvedilol 12.5 mg 03/25/19 10:00 03/26/19 22:27 Coreg PO 12.5 mg BID SELENA Administration Colchicine 0.6 mg 03/26/19 22:00 03/26/19 22:26 Colchicine PO 0.6 mg BID SE[facility] Administration Divalproex Sodium 125 mg 03/25/19 10:00 03/26/19 22:[address] PO 125 mg Q12HR [facility] Administration Duloxetine HCl 30 mg 03/25/19 10:00 03/26/19 14:36 Cymbalta PO 30 mg DAILY [facility] Administration Gabapentin 500 mg 03/25/19 08:00 03/26/19 22:41 Gabapentin PO 500 mg TID SELENA Administration Heparin Sodium (Porcine) 5,000 unit 03/25/19 06:00 03/27/19 07:17 Heparin SUB-Q 5,000 unit Q8HR [facility]LENA Administration Hydralazine HCl 25 mg 03/25/19 10:00 03/26/19 14:37 Apresoline PO 25 mg DAILY [facility] Administration Sodium Chloride 1,000 mls @ 125 mls/hr 03/25/19 00:15 03/27/19 07:17 Nacl 0.9% 1000 Ml IV 125 mls/hr DIRECT [facility]NA Administration Ceftriaxone Sodium 2 gm in 100 mls @ 200 mls/hr 03/25/19 19:00 03/26/19 14:48 Rocephin/Ns 2 Gm/100 Ml IV 200 mls/hr Q24HR [facility] Administration Protocol Lorazepam 2 mg 03/25/19 05:10 03/27/19 00:33 Ativan PO 2 mg Q6HR PRN Administration Agitation Magnesium Hydroxide 30 ml 03/25/19 00:08 Milk Of Magnesia PO Q4H PRN Constipation Melatonin 5 mg 03/25/19 22:00 03/26/19 22:27 Melatonin PO 5 mg QHS [facility] Administration Morphine Sulfate 2 mg 03/25/19 00:08 Morphine IV Q5MIN PRN Chest Pain unrelieved by NTG Ondansetron HCl 4 mg 03/25/19 00:08 Zofran IV Q8H PRN Nausea And Vomiting Sodium Chloride 10 ml 03/25/19 10:00 03/26/19 14:40 Sodium Chloride Flush Syringe 10 Ml IV 10 ml BID SELENA Administration Sodium Chloride 10 ml 03/25/19 00:08 03/27/19 07:59 Sodium Chloride Flush Syringe 10 Ml IV 10 ml PRN PRN Administration LINE FLUSH Tamsulosin HCl 0.4 mg 03/25/19 22:00 03/26/19 22:27 Flomax PO 0.4 mg QHS SELENA Administration Nutrition/Malnutrition Assess - Dietary Evaluation Nutrition/Malnutrition Findings: Nutrition Notes Start: 03/25/19 13:4 2 Freq: Status: Active Protocol: Document 03/26/19 14:45 YAZMIN (Rec: 03/26/19 14:47 YAZMIN [id number]) Co-Sign 03/26/19 14:45 LP Nutrition Notes Initial or Follow up Brief Note Current Diagnosis Hypertension,Stroke Other Pertinent Diagnosis AMS, renal insufficiency Current Diet Dietary supplements Subjective/Other Information F/U for assessment and ONS. Pt was not in room. Nutrition Intervention Follow-Up By: 03/27/19 Additional Comments F/U for assessment and ONS need
[2019-03-27] MEDS: TAMSULOSIN 0.4 MG CAP PO SCH (22:59)
[2019-03-27] MEDS: MELATONIN 5 MG TAB PO SCH (23:13)
[2019-03-28] MEDS: HEPARIN 5,000 UNIT/1 ML VIAL SUB-Q SCH (06:20)
[2019-03-28] MEDS: SODIUM CHLORIDE 0.9% 1000 ML 1,000 ML IV SCH (06:21)
--- NOTE | 2019-03-28 09:38 | Discharge Summary ---
Providers - Providers Date of Admission: 03/25/19 14:56 Date of discharge: 03/28/19 Attending physician: TAHIR TREJO 03/25/19 Consult to Cardiac Rehabilitation [CONS] Routine Reason For Exam: Phase I 03/25/19 01:48 Consult to Dietitian/Nutrition [CONS] Routine Physician Instructions: Reason For Exam: Reason for Consult: Pt needs oral supplement 03/25/19 16:53 Physical Therapy Evaluation and Treat [CONS] Routine Comment: Reason For Exam: Generalized weakness 03/25/19 17:00 Occupational Therapy Evaluate and Treat [CONS] Routine Comment: Being treated for contractures in SNF Reason For Exam: Generalized Weakness 03/27/19 15:38 Consult to Wound/ET Nurse [CONS] Routine Reason For Exam: wound eval Primary care physician: SAUNDRA PETIT Hospitalization Reason for admission: AMS Condition: Stable Hospital course: The pt is a 58-year-old male NHR with a past medical history of 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 Patient apparently refused to take his medications. Pt was found to have elevated troponin and thus cardiology was also consulted. The patient was noted to have a UTI which was treated with IV antibiotics and acute kidney injury secondary to vasomotor nephropathy from dehydration in which both were most likely etiology for the altered mental status (toxic metabolic encephalopathy). In addition to the IV antibiotics, patient received IV fluid hydration with normalization of the creatinine. The hospital staff spoke to the nurse at the [facility] at [facility] and patient was described as pleasantly confused alert and oriented x 2. Patient appears to be at his baseline currently. I discussed the case with the mother who is also agreement with his current mental status. As far as the elevated troponin patient underwent echocardiogram which revealed a EF of 45 to 50% with impaired relaxation and mild LVH. Patient also underwent MPI stress test that was found to be negative. Cardiology felt that cardiac status was stable. Therefore, patient will be discharged back to [place]. Continue beta-chey aspirin and statin. Patient is to have no EDUARDO inhibitor or ARB in the setting of renal insufficiency. Dedicated discharge time 35 minutes Disposition: DC/TX-03 SNF W [facility] CERT Time spent for discharge: 35 - Discharge Diagnoses (1) Toxic metabolic encephalopathy Status: Acute (2) AJAY (acute kidney injury) Status: Acute (3) Vasomotor nephropathy Status: Acute (4) Dehydration Status: Acute (5) Elevated troponin Status: Acute (6) Renal insufficiency Status: Acute (7) UTI (urinary tract infection) Status: Acute Core Measure Documentation - Palliative Care Palliative Care/ Comfort Measures: Not Applicable - Core Measures Any of the following diagnoses?: none Exam - Constitutional Vitals: Temp Pulse Resp BP Pulse Ox 97.2 F L 85 16 120/78 98 03/28/19 04:46 03/28/19 04:46 03/28/19 04:46 03/28/19 04:46 03/28/19 04:46 General appearance: Present: no acute distress, well-nourished - EENT Eyes: Present: PERRL ENT: hearing intact, clear oral mucosa - Neck Neck: Present: supple, normal ROM - Respiratory Respiratory effort: normal Respiratory: bilateral: CTA - Cardiovascular Heart Sounds: Present: S1 & S2. Absent: rub, click - Extremities Extremities: pulses symmetrical, No edema Peripheral Pulses: within normal limits - Abdominal General gastrointestinal: Present: soft, non-tender, non-distended, normal bowel sounds Male genitourinary: Present: normal - Integumentary Integumentary: Present: clear, warm, dry - Musculoskeletal Musculoskeletal: gait normal, strength equal bilaterally - Psychiatric Psychiatric: appropriate mood/affect, intact judgment & insight - Neurologic Neurologic: CNII-XII intact, moves all extremities Plan Activity: advance as tolerated Weight Bearing Status: Weight Bear as Tolerated Diet: per dietitian instruction Follow up with: SAUNDRA PETIT MD [Primary Care Provider] - 7 Days
[2019-03-28] MEDS: cefTRIAXone/NS 2 GM/100 ML 2 GM/100 ML BAG IV SCH (10:42)
[2019-03-28] MEDS: ASPIRIN EC 325 MG TAB PO SCH (10:43)
[2019-03-28] MEDS: DULoxetine 30 MG CAP PO SCH (10:43)
[2019-03-28] MEDS: BACLOFEN 10 MG TAB PO SCH (10:43)
[2019-03-28] MEDS: carvediloL 12.5 MG TAB PO SCH (10:44)
[2019-03-28] MEDS: amLODIPine 10 MG TAB PO SCH (10:44)
[2019-03-28] MEDS: DIVALPROEX DR 125 MG TAB PO SCH (10:44)
[2019-03-28] MEDS: hydrALAZINE 25 MG TAB PO SCH (10:45)
[2019-03-28] MEDS: COLCHICINE 0.6 MG CAP PO SCH (10:45)
[2019-03-28] MEDS: GABAPENTIN 500 MG/10 ML ORAL LIQD PO SCH (10:47)
[2019-03-28 15:37] VITALS: BP 148/87
== END 2019-03-28 12:20 | DRG 91 ==
LOC: ED 19:34 → 3A 03-25 00:12 → OBSVTOIN 03-25 14:56
PROVIDERS: ADMIT Internal Medicine Geriatric Medicine; ATTEND Hospitalist
DX: G92 Toxic encephalopathy (principal); N17.0 Acute kidney failure with tubular necrosis; I21.A1 Myocardial infarction type 2; E87.1 Hypo-osmolality and hyponatremia; N39.0 Urinary tract infection, site not specified; I69.351 Hemiplegia and hemiparesis following cerebral infarction affecting right dominant side; E86.0 Dehydration; I10 Essential (primary) hypertension; F32.9 Major depressive disorder, single episode, unspecified; Z79.899 Other long term (current) drug therapy
CPT/HCPCS: 36415; 70450; 78452; 80048; 80053; 80061; 80164; 81001; 84484; 85025; 85610; 85730; 87116; 93005; 93010; 93017; 93306; 96374; G0378; A9270-GY; A9502; J0696; J1644; J2270; J2785; J7030; J7040

== ENCOUNTER 2019-04-15 17:46 | Inpatient (IN) | payer MEDICAID, OTHER ==
--- NOTE | 2019-04-15 18:36 | Emergency Department Report ---
ED Altered Mental Status HPI - General Chief Complaint: Altered Mental Status Stated Complaint: HYPOTENSION/AMS Time Seen by Provider: 04/15/19 18:25 Source: patient Mode of arrival: Ambulatory Limitations: No Limitations - History of Present Illness Initial Comments: Patient is a 58-year-old male that presents the emergency room for altered mental status. Patient is a resident at [facility]. Patient last known well time is unknown. Patient has been hypotensive and altered mental status x1 day. Patient has not been eating or drinking x1 day. Patient is confused. Patient alf documents reviewed: Patient has a past medical history of nontraumatic intracranial hemorrhage, neoplasm of the stomach, hypertension, major depressive disorder, insomnia, psychosis. Patient's medications were reviewed. Patient's last set of vital signs were a blood glucose of 110, blood pressure 106/74, heart rate 82, respiration rate 18, oxygen saturation 97% on room air, temperature 97.5. MD Complaint: altered mental status, confusion -: Sudden Consistency of Symptoms: unknown - Related Data Home Medications Medication Instructions Recorded Confirmed Last Taken Amlodipine Besylate [Norvasc] 10 mg PO DAILY 03/25/19 04/15/19 Unknown Baclofen [Lioresal] 10 mg PO BID 03/25/19 04/15/19 Unknown Colchicine 0.6 mg PO BID 03/25/19 04/15/19 Unknown Divalproex [Brigitte Lundberg] 125 mg PO Q12HR 03/25/19 04/15/19 Unknown Duloxetine HCl [Drizalma Sprinkle] 30 mg PO DAILY 03/25/19 04/15/19 Unknown Gabapentin [Neurontin 250 mg/5 ml] 10 ml PO TID 03/25/19 04/15/19 Unknown HYDROcodone/APAP 5-325 [[place] 1 each PO Q4HR PRN 03/25/19 04/15/19 Unknown 5-325 mg TAB] Hydralazine HCl 25 mg PO DAILY 03/25/19 04/15/19 Unknown LORazepam [Ativan] 2 mg PO Q6HR PRN 03/25/19 04/15/19 Unknown Melatonin [Melatonin 5MG CAP] 5 mg PO QHS 03/25/19 04/15/19 Unknown Tamsulosin [Flomax] 0.4 mg PO QHS 03/25/19 04/15/19 Unknown carvediloL [Coreg] 12.5 mg PO BID 03/25/19 04/15/19 Unknown Previous Rx's Medication Instructions Recorded Last Taken Type Aspirin EC 325 mg PO QDAY tablet 03/28/19 Unknown Rx AtorvaSTATin [Lipitor] 40 mg PO QHS tablet 03/28/19 Unknown Rx Magnesium Hydroxide [Milk of 30 ml PO Q4H PRN oral.liqd 03/28/19 Unknown Rx Magnesia] Allergies Allergy/AdvReac Type Severity Reaction Status Date / Time No Known Allergies Allergy Verified 03/25/19 00:27 ED Review of Systems ROS: Stated complaint: HYPOTENSION/AMS Other details as noted in HPI Comment: Unobtainable due to pts medical conditions ED Past Medical Hx - Past Medical History Previous Medical History?: Yes Hx Hypertension: Yes Hx CVA: Yes (rt weakness) Hx Congestive Heart Failure: No Hx Diabetes: No Hx Psychiatric Treatment: Yes (major depressive disorder) Hx Asthma: No Hx COPD: No Hx HIV: No Additional medical history: gout - Surgical History Past Surgical History?: Yes - Family History Family history: no significant - Social History Smoking Status: Unknown if ever smoked Substance Use Type: None - Medications Home Medications: Home Medications Medication Instructions Recorded Confirmed Last Taken Type Amlodipine Besylate [Norvasc] 10 mg PO DAILY 03/25/19 04/15/19 Unknown History Baclofen [Lioresal] 10 mg PO BID 03/25/19 04/15/19 Unknown History Colchicine 0.6 mg PO BID 03/25/19 04/15/[address] [Brigitte Lundberg] 125 mg PO Q12HR 03/25/19 04/15/19 Unknown History Duloxetine HCl [Drizalma Sprinkle] 30 mg PO DAILY 03/25/19 04/15/19 Unknown History Gabapentin [Neurontin 250 mg/5 ml] 10 ml PO TID 03/25/19 04/15/19 Unknown History HYDROcodone/APAP 5-325 [[place] 1 each PO Q4HR PRN 03/25/19 04/15/19 Unknown History 5-325 mg TAB] Hydralazine HCl 25 mg PO DAILY 03/25/19 04/15/19 Unknown History LORazepam [Ativan] 2 mg PO Q6HR PRN 03/25/19 04/15/19 Unknown History Melatonin [Melatonin 5MG CAP] 5 mg PO QHS 03/25/19 04/15/19 Unknown History Tamsulosin [Flomax] 0.4 mg PO QHS 03/25/19 04/15/19 Unknown History carvediloL [Coreg] 12.5 mg PO BID 03/25/19 04/15/19 Unknown History Aspirin EC 325 mg PO QDAY tablet 03/28/19 04/15/19 Unknown Rx AtorvaSTATin [Lipitor] 40 mg PO QHS tablet 03/28/19 04/15/19 Unknown Rx Magnesium Hydroxide [Milk of 30 ml PO Q4H PRN oral.liqd 03/28/19 04/15/19 Unknown Rx Magnesia] ED Physical Exam - General Limitations: Altered Mental Status, Physical Limitation General appearance: alert, in no apparent distress - Head Head exam: Present: atraumatic, normocephalic - Eye Eye exam: Present: normal appearance, PERRL Pupils: Present: normal accommodation - ENT ENT exam: Present: mucous membranes dry - Neck Neck exam: Present: normal inspection - Respiratory Respiratory exam: Present: normal lung sounds bilaterally. Absent: respiratory distress, wheezes, rales - Cardiovascular Cardiovascular Exam: Present: regular rate, normal rhythm. Absent: systolic murmur, diastolic murmur, rubs, gallop - GI/Abdominal GI/Abdominal exam: Present: soft, normal bowel sounds. Absent: distended, tenderness, guarding - Rectal Rectal exam: Present: deferred - Extremities Exam Extremities exam: Present: normal inspection - Back Exam Back exam: Present: normal inspection - Neurological Exam Neurological exam: Present: alert, altered - Skin Skin exam: Present: warm, dry, intact, normal color. Absent: rash - Assessment Assessment Interval: Baseline - Level of Consciousness 1a. Level of Consciousness: alert/keenly responsive - LOC Questions 1b. LOC Questions: answers both correctly - LOC Command 1c. LOC Commands: performs tasks correctly - Best Gaze 2. Best Gaze: normal - Visual 3. Visual: no visual loss - Facial Palsy 4. Facial Palsy: normal symmetrical movement - Motor Arm 5a. Motor Arm Left: no drift 5b. Motor Arm Right: no movement - Motor Leg 6a. Motor Leg Left: no drift 6b. Motor Leg Right: no movement - Limb Ataxia 7. Limb Ataxia: absent - Sensory 8. Sensory: normal - Best Language 9. Best Language: no aphasia - Dysarthria 10. Dysarthria: normal - Extinction and Inattention 11. Extinction/Inattention: no abnormality - Scoring Total Score: 8 Stroke Severity: Moderate Stroke ED Course Vital Signs 04/15/19 04/15/19 04/15/19 18:13 18:14 18:16 Temperature 97.8 F Pulse Rate 85 81 Respiratory 13 12 Rate Blood Pressure O2 Sat by Pulse Oximetry 04/15/19 04/15/19 04/15/19 18:30 18:45 19:00 Temperature Pulse Rate 76 Respiratory 17 12 12 Rate Blood Pressure 91/64 88/56 88/56 O2 Sat by Pulse Oximetry 04/15/19 04/15/19 04/15/19 19:15 19:30 19:45 Temperature Pulse Rate 74 84 79 Respiratory 11 L 13 Rate Blood Pressure 73/45 90/54 97/64 O2 Sat by Pulse Oximetry 04/15/19 04/15/19 04/15/19 20:01 20:02 20:15 Temperature 98.6 F Pulse Rate 76 80 Respiratory Rate Blood Pressure 85/64 112/72 O2 Sat by Pulse 99 100 Oximetry 04/15/19 04/15/19 04/15/19 20:30 20:55 21:00 Temperature Pulse Rate 80 79 Respiratory Rate Blood Pressure 97/60 97/60 127/75 O2 Sat by Pulse 100 100 100 Oximetry 04/15/19 04/15/19 04/15/19 21:15 21:30 21:45 Temperature Pulse Rate 73 83 73 Respiratory 11 L 24 15 Rate Blood Pressure 94/61 94/65 123/56 O2 Sat by Pulse 100 100 97 Oximetry 04/15/19 04/15/19 04/15/19 22:00 22:15 22:30 Temperature Pulse Rate 75 83 76 Respiratory 14 13 11 L Rate Blood Pressure 119/57 111/71 125/66 O2 Sat by Pulse 98 100 100 Oximetry 04/15/19 04/15/19 04/15/19 22:41 22:45 23:00 Temperature Pulse Rate 90 80 83 Respiratory 13 18 13 Rate Blood Pressure 125/66 126/74 124/70 O2 Sat by Pulse 99 100 100 Oximetry 04/15/19 04/15/19 04/16/19 23:15 23:30 00:23 Temperature 98.0 F Pulse Rate 84 80 79 Respiratory 13 16 18 Rate Blood Pressure 128/72 124/72 125/90 O2 Sat by Pulse 100 99 93 Oximetry - Reevaluation(s) Reevaluation #1: Initial evaluation done. Patient will receive fluids. 04/15/19 18:45 Reevaluation #2: Patient will be given antibiotics and fluids. Patient's blood pressure low. 04/15/19 19:20 Reevaluation #3: Patient's blood pressure better. 04/15/19 20:00 Reevaluation #4: I discussed all results with patient. Patient will be admitted to the hospitalist service. Patient is still confused. Patient has been given fluids and antibiotics. 04/15/19 21:00 - Consultations Consultation #1: Hospitalist consulted for admission. Hospitalist admit patient. 04/15/19 21:00 - Lab Data Result diagrams: 04/15/19 19:10 04/15/19 19:10 Lab Results 04/15/19 04/15/19 04/15/19 Range/Units 19:10 19:10 19:10 WBC 9.0 (4.5-11.0) K/mm3 RBC 4.69 (3.65-5.03) M/mm3 Hgb 13.5 (11.8-15.2) gm/dl Hct 40.6 (35.5-45.6) % MCV 87 (84-94) fl MCH 29 (28-32) pg MCHC 33 (32-34) % RDW 15.9 H (13.2-15.2) % Plt Count 249 (140-440) K/mm3 Lymph % (Auto) 26.1 (13.4-35.0) % [place] % (Auto) 9.2 H (0.0-7.3) % Eos % (Auto) 1.3 (0.0-4.3) % Baso % (Auto) 0.8 (0.0-1.8) % Lymph # 2.4 (1.2-5.4) K/mm3 [place] # 0.8 (0.0-0.8) K/mm3 Eos # 0.1 (0.0-0.4) K/mm3 Baso # 0.1 (0.0-0.1) K/mm3 Seg Neutrophils % 62.6 (40.0-70.0) % Seg Neutrophils # 5.7 (1.8-7.7) K/mm3 Sodium 142 (137-145) mmol/L Potassium 4.7 (3.6-5.0) mmol/L Chloride 103.9 (98-107) mmol/L Carbon Dioxide 22 (22-30) mmol/L Anion Gap 21 mmol/L BUN 75 H (9-20) mg/dL Creatinine 2.9 H (0.8-1.5) mg/dL Estimated GFR 23 ml/min BUN/Creatinine Ratio 26 % Glucose 112 H (75-100) mg/dL Lactic Acid 1.20 (0.7-2.0) mmol/L Calcium 9.0 (8.4-10.2) mg/dL Total Bilirubin 0.40 (0.1-1.2) mg/dL AST 25 (5-40) units/L ALT 13 (7-56) units/L Alkaline Phosphatase 61 (35-129) units/L Ammonia (25-60) umol/L Total Creatine Kinase 535 H (55-170) units/L Troponin T 0.080 H (0.00-0.029) ng/mL Total Protein 6.4 (6.3-8.2) g/dL Albumin 3.1 L (3.9-5) g/dL Albumin/Globulin Ratio 0.9 % Triglycerides 207 H (2-149) mg/dL Cholesterol 122 (50-199) mg/dL LDL Cholesterol Direct 53 (50-130) mg/dL HDL Cholesterol 31 L (40-59) mg/dL Cholesterol/HDL Ratio 3.93 % Urine Color (Yellow) Urine Turbidity (Clear) Urine pH (5.0-7.0) Ur Specific [place] (1.003-1.030) Urine Protein (Negative) mg/dL Urine Glucose (UA) (Negative) mg/dL Urine Ketones (Negative) mg/dL Urine Blood (Negative) Urine Nitrite (Negative) Urine Bilirubin (Negative) Urine Urobilinogen (<2.0) mg/dL Ur Leukocyte Esterase (Negative) Urine WBC (Auto) (0.0-6.0) /HPF Urine RBC (Auto) (0.0-6.0) /HPF U Epithel Cells (Auto) (0-13.0) /HPF Urine Bacteria (Auto) (Negative) /HPF Urine Mucus /HPF Salicylates (2.8-20.0) mg/dL Urine Opiates Screen Urine Methadone Screen Acetaminophen (10.0-30.0) ug/mL Ur Barbiturates Screen Ur Phencyclidine Scrn Ur Amphetamines Screen U Benzodiazepines Scrn Urine Cocaine Screen U Marijuana (THC) Screen Drugs of Abuse Note Plasma/Serum Alcohol (0-0.07) % 04/15/19 04/15/19 04/15/19 Range/Units 19:10 19:10 19:10 WBC (4.5-11.0) K/mm3 RBC (3.65-5.03) M/mm3 Hgb (11.8-15.2) gm/dl Hct (35.5-45.6) % MCV (84-94) fl MCH (28-32) pg MCHC (32-34) % RDW (13.2-15.2) % Plt Count (140-440) K/mm3 Lymph % (Auto) (13.4-35.0) % [place] % (Auto) (0.0-7.3) % Eos % (Auto) (0.0-4.3) % Baso % (Auto) (0.0-1.8) % Lymph # (1.2-5.4) K/mm3 [place] # (0.0-0.8) K/mm3 Eos # (0.0-0.4) K/mm3 Baso # (0.0-0.1) K/mm3 Seg Neutrophils % (40.0-70.0) % Seg Neutrophils # (1.8-7.7) K/mm3 Sodium (137-145) mmol/L Potassium (3.6-5.0) mmol/L Chloride (98-107) mmol/L Carbon Dioxide (22-30) mmol/L Anion Gap mmol/L BUN (9-20) mg/dL Creatinine (0.8-1.5) mg/dL Estimated GFR ml/min BUN/Creatinine Ratio % Glucose (75-100) mg/dL Lactic Acid (0.7-2.0) mmol/L Calcium (8.4-10.2) mg/dL Total Bilirubin (0.1-1.2) mg/dL AST (5-40) units/L ALT (7-56) units/L Alkaline Phosphatase (35-129) units/L Ammonia 27.0 (25-60) umol/L Total Creatine Kinase (55-170) units/L Troponin T (0.00-0.029) ng/mL Total Protein (6.3-8.2) g/dL Albumin (3.9-5) g/dL Albumin/Globulin Ratio % Triglycerides (2-149) mg/dL Cholesterol (50-199) mg/dL LDL Cholesterol Direct (50-130) mg/dL HDL Cholesterol (40-59) mg/dL Cholesterol/HDL Ratio % Urine Color (Yellow) Urine Turbidity (Clear) Urine pH (5.0-7.0) Ur Specific [place] (1.003-1.030) Urine Protein (Negative) mg/dL Urine Glucose (UA) (Negative) mg/dL Urine Ketones (Negative) mg/dL Urine Blood (Negative) Urine Nitrite (Negative) Urine Bilirubin (Negative) Urine Urobilinogen (<2.0) mg/dL Ur Leukocyte Esterase (Negative) Urine WBC (Auto) (0.0-6.0) /HPF Urine RBC (Auto) (0.0-6.0) /HPF U Epithel Cells (Auto) (0-13.0) /HPF Urine Bacteria (Auto) (Negative) /HPF Urine Mucus /HPF Salicylates < 0.3 L (2.8-20.0) mg/dL Urine Opiates Screen Urine Methadone Screen Acetaminophen < 5.0 L (10.0-30.0) ug/mL Ur Barbiturates Screen Ur Phencyclidine Scrn Ur Amphetamines Screen U Benzodiazepines Scrn Urine Cocaine Screen U Marijuana (THC) Screen Drugs of Abuse Note Plasma/Serum Alcohol (0-0.07) % 04/15/19 04/15/19 04/15/19 Range/Units 19:10 20:22 20:22 WBC (4.5-11.0) K/mm3 RBC (3.65-5.03) M/mm3 Hgb (11.8-15.2) gm/dl Hct (35.5-45.6) % MCV (84-94) fl MCH (28-32) pg MCHC (32-34) % RDW (13.2-15.2) % Plt Count (140-440) K/mm3 Lymph % (Auto) (13.4-35.0) % [place] % (Auto) (0.0-7.3) % Eos % (Auto) (0.0-4.3) % Baso % (Auto) (0.0-1.8) % Lymph # (1.2-5.4) K/mm3 [place] # (0.0-0.8) K/mm3 Eos # (0.0-0.4) K/mm3 Baso # (0.0-0.1) K/mm3 Seg Neutrophils % (40.0-70.0) % Seg Neutrophils # (1.8-7.7) K/mm3 Sodium (137-145) mmol/L Potassium (3.6-5.0) mmol/L Chloride (98-107) mmol/L Carbon Dioxide (22-30) mmol/L Anion Gap mmol/L BUN (9-20) mg/dL Creatinine (0.8-1.5) mg/dL Estimated GFR ml/min BUN/Creatinine Ratio % Glucose (75-100) mg/dL Lactic Acid (0.7-2.0) mmol/L Calcium (8.4-10.2) mg/dL Total Bilirubin (0.1-1.2) mg/dL AST (5-40) units/L ALT (7-56) units/L Alkaline Phosphatase (35-129) units/L Ammonia (25-60) umol/L Total Creatine Kinase (55-170) units/L Troponin T (0.00-0.029) ng/mL Total Protein (6.3-8.2) g/dL Albumin (3.9-5) g/dL Albumin/Globulin Ratio % Triglycerides (2-149) mg/dL Cholesterol (50-199) mg/dL LDL Cholesterol Direct (50-130) mg/dL HDL Cholesterol (40-59) mg/dL Cholesterol/HDL Ratio % Urine Color [place] (Yellow) Urine Turbidity Cloudy (Clear) Urine pH 5.0 (5.0-7.0) Ur Specific [place] 1.017 (1.003-1.030) Urine Protein 30 mg/dl (Negative) mg/dL Urine Glucose (UA) Neg (Negative) mg/dL Urine Ketones Neg (Negative) mg/dL Urine Blood Neg (Negative) Urine Nitrite Neg (Negative) Urine Bilirubin Neg (Negative) Urine Urobilinogen < 2.0 (<2.0) mg/dL Ur Leukocyte Esterase Lg (Negative) Urine WBC (Auto) 165.0 H (0.0-6.0) /HPF Urine RBC (Auto) 27.0 (0.0-6.0) /HPF U Epithel Cells (Auto) < 1.0 (0-13.0) /HPF Urine Bacteria (Auto) 1+ (Negative) /HPF Urine Mucus Few /HPF Salicylates (2.8-20.0) mg/dL Urine Opiates Screen Presumptive negative Urine Methadone Screen Presumptive negative Acetaminophen (10.0-30.0) ug/mL Ur Barbiturates Screen Presumptive negative Ur Phencyclidine Scrn Presumptive negative Ur Amphetamines Screen Presumptive negative U Benzodiazepines Scrn Presumptive negative Urine Cocaine Screen Presumptive negative U Marijuana (THC) Screen Presumptive negative Drugs of Abuse Note Disclamer Plasma/Serum Alcohol < 0.01 (0-0.07) % - Medical Decision Making Patient is a 58-year-old male that presents emergency room with altered mental status, hypotension. Patient given fluids in the ER, patient's blood pressure responded well. Patient's clinical findings are consistent with renal failure, encephalopathy, UTI. Patient admitted to the hospitalist service. Patient's labs are unremarkable except for renal failure and a UTI.. Lactic acid normal. WBC normal. Patient was never tachycardic. Patient chest x-ray was negative for acute findings. - Differential Diagnosis UTI, AMS, dehydration, hypotension. Renal failure Critical Care Time: Yes Critical care time in (mins) excluding proc time.: 35 Critical care attestation.: If time is entered above; I have spent that time in minutes in the direct care of this critically ill patient, excluding procedure time. Critical Care Time: 35 MINUTES ED Disposition Clinical Impression: Elevated troponin, Dehydration, AJAY (acute kidney injury), Encephalopathy acute Altered mental status Qualifiers: Altered mental status type: unspecified Qualified Code(s): R41.82 - Altered mental status, unspecified UTI (urinary tract infection) Qualifiers: Urinary tract infection type: acute cystitis Hematuria presence: with hematuria Qualified Code(s): N30.01 - Acute cystitis with hematuria Acute renal failure Qualifiers: Acute renal failure type: unspecified Qualified Code(s): N17.9 - Acute kidney failure, unspecified Hypotension Qualifiers: Hypotension type: unspecified hypotension type Qualified Code(s): I95.9 - Hypotension, unspecified Disposition: DC-09 OP ADMIT IP TO THIS HOSP Is pt being admited?: Yes Does the pt Need Aspirin: No Condition: Critical Time of Disposition: 21:02
[2019-04-15] MEDS ORDERED: SODIUM CHLORIDE 0.9% 1000 ML 1,000 ML IV ONE (18:37)
[2019-04-15 19:41] LABS: Basophils # (Auto) 0.1 K/mm3 (0.0-0.1); Basophils % (Auto) 0.8 % (0.0-1.8); Eosinophils # (Auto) 0.1 K/mm3 (0.0-0.4); Eosinophils % (Auto) 1.3 % (0.0-4.3); Hematocrit 40.6 % (35.5-45.6); Hemoglobin 13.5 gm/dl (11.8-15.2); Lymphocytes # (Auto) 2.4 K/mm3 (1.2-5.4); Lymphocytes % (Auto) 26.1 % (13.4-35.0); Mean Corpuscular HGB Conc 33 % (32-34); Mean Corpuscular Volume 87 fl (84-94); Monocytes # (Auto) 0.8 K/mm3 (0.0-0.8); Monocytes % (Auto) 9.2 % (0.0-7.3); Platelet Count 249 K/mm3 (140-440); Red Blood Count 4.69 M/mm3 (3.65-5.03); Red Cell Distribution Width 15.9 % (13.2-15.2)
[2019-04-15] MEDS ORDERED: SODIUM CHLORIDE 0.9% 1000 ML IV SOLN IV ONE (19:41)
[2019-04-15] MEDS ORDERED: CEFEPIME/NS 2 GM/100 ML 2 GM/100 ML BAG IV ONE (19:41)
--- NOTE | 2019-04-15 19:48 | XRay Report ---
CHEST 1 VIEW INDICATION / CLINICAL INFORMATION: Altered Mental Status. COMPARISON: None available. FINDINGS: Patient's right hand and wrist overlie the right lower chest SUPPORT DEVICES: None. HEART / MEDIASTINUM: No significant abnormality. LUNGS / PLEURA: No significant pulmonary or pleural abnormality.. No pneumothorax. ADDITIONAL FINDINGS: No significant additional findings. IMPRESSION: 1. No acute findings. Signer Name: Rory Martell MD Signed: 04/15/2019 7:44 PM Workstation Name: [id number]
[2019-04-15 19:58] LABS: Albumin 3.1 g/dL (3.9-5)
[2019-04-15 20:10] LABS: Chol/HDL Ratio 3.93 %
[2019-04-15 20:42] LABS: Bacteria,Urine 1+ /HPF (Negative); Bilirubin,Urine NEG (Negative); Blood,Urine NEG (Negative); Color,Urine Amber (Yellow); Mucus,Urine FEW /HPF; Urobilinogen,Urine < 2.0 mg/dL (<2.0)
[2019-04-15 20:46] LABS: Amphetamine Screen,Urine PRESUMPTIVE NEGATIVE; Benzodiazepines Screen,Urine PRESUMPTIVE NEGATIVE; Cannabinoid Screen,Urine PRESUMPTIVE NEGATIVE; Cocaine Screen,Urine PRESUMPTIVE NEGATIVE; Methadone Screen,Urine PRESUMPTIVE NEGATIVE; Opiate Screen,Urine PRESUMPTIVE NEGATIVE
[2019-04-15] MEDS ORDERED: VANCOMYCIN/NS 1 GM/250 ML 1 GM/250 ML BAG IV ONE (20:59)
--- NOTE | 2019-04-15 21:36 | Cat Scan Report ---
NONENHANCED CT SCAN OF THE HEAD: INDICATION / CLINICAL INFORMATION: 58 years Male; Altered Mental Status. TECHNIQUE: Routine CT head without contrast. All CT scans at this location are performed using CT dos e reduction for ALARA by means of automated exposure control. COMPARISON: CT scan of the head from March 24, 2019 FINDINGS: BRAIN / INTRACRANIAL CONTENTS: In the last CT scan, low attenuation lesion measuring 2.2 cm is seen a long the body of left caudate mass effect is seen more to the lateral wall of left lateral ventricle. This lesion has decreased to 15 mm in size in today's scan. There is no mass effect. Mild compensato ry enlargement of left lateral ventricle is seen. As seen in the last CT scan, thin rim of increased CT density is seen. This could be a resolving hematoma. 2 other low-attenuation lesions bordering the ventricular system and also less apparent in today's CT scan. No acute hemorrhage, mass effect, midline shift, hydrocephalus, or acute, large territorial infarct. Lateral ventricles and third ventricle are generous suggesting deep central involution. Multiple low-attenuation lesions are seen in the deep hemispheric white matter probably due to chroni c microvascular faint angiopathy. High convexity cortical sulci are normal. CRANIOCERVICAL JUNCTION: No significant abnormality. ORBITS: No significant abnormality of visualized orbits. SINUSES / MASTOIDS: No significant abnormality of the visualized paranasal sinuses or mastoid air nathaly ls. ADDITIONAL FINDINGS: None. IMPRESSION: Previously seen lesion in the left basal ganglia is slightly smaller; mass effect over the left later al ventricle has resolved; probably this is organizing hematoma 3 other smaller low-attenuation lesions bordering the ventricular system are also smaller No new hemorrhage, space taking lesion or acute parenchymal lesion. Signer Name: Tyson Skelton MD Signed: 04/15/2019 9:32 PM Workstation Name: [id number]
[2019-04-15] MEDS ORDERED: VANCOMYCIN 1,250 MG in SODIUM CHLORIDE 0.9% 250ML 250 ML IV ONE (22:00)
[2019-04-15] MEDS ORDERED: ONDANSETRON 4 MG/2 ML INJ IV PRN (22:16)
[2019-04-15] MEDS ORDERED: ACETAMINOPHEN 325 MG TAB PO PRN (22:16)
[2019-04-15] MEDS ORDERED: SODIUM CHLORIDE 0.9% 1000 ML 1,000 ML ONE (22:18)
--- NOTE | 2019-04-15 22:18 | History and Physical Report ---
History of Present Illness History of present illness: 58-year-old man with a history of hypertension, CVA with right-sided weakness, depression, gout, COPD was sent to the emergency room for evaluation of altered mental status. History is per the chart, patient is unable to give a history, review of system is unobtainable. In the emergency room he was found to have acute renal failure, urinary tract infection, dehydration for which she will be admitted for. Old records reviewed PAST MEDICAL HISTORY: hypertension, CVA with right-sided weakness, depression, gout, COPD PAST SURGICAL HISTORY: Unknown SOCIAL HISTORY: Unknown FAMILY HISTORY: Unknown Medications and Allergies Allergies Allergy/AdvReac Type Severity Reaction Status Date / Time No Known Allergies Allergy Verified 03/25/19 00:27 Home Medications Medication Instructions Recorded Confirmed Last Taken Type Amlodipine Besylate [Norvasc] 10 mg PO DAILY 03/25/19 04/15/19 Unknown History Baclofen [Lioresal] 10 mg PO BID 03/25/19 04/15/19 Unknown History Colchicine 0.6 mg PO BID 03/25/19 04/15/[address] [Depakote Dr] 125 mg PO Q12HR 03/25/19 04/15/19 Unknown History Duloxetine HCl [Drizalma Sprinkle] 30 mg PO DAILY 03/25/19 04/15/19 Unknown History Gabapentin [Neurontin 250 mg/5 ml] 10 ml PO TID 03/25/19 04/15/19 Unknown History HYDROcodone/APAP 5-325 [[place] 1 each PO Q4HR PRN 03/25/19 04/15/19 Unknown History 5-325 mg TAB] Hydralazine HCl 25 mg PO DAILY 03/25/19 04/15/19 Unknown History LORazepam [Ativan] 2 mg PO Q6HR PRN 03/25/19 04/15/19 Unknown History Melatonin [Melatonin 5MG CAP] 5 mg PO QHS 03/25/19 04/15/19 Unknown History Tamsulosin [Flomax] 0.4 mg PO QHS 03/25/19 04/15/19 Unknown History carvediloL [Coreg] 12.5 mg PO BID 03/25/19 04/15/19 Unknown History Aspirin EC 325 mg PO QDAY tablet 03/28/19 04/15/19 Unknown Rx AtorvaSTATin [Lipitor] 40 mg PO QHS tablet 03/28/19 04/15/19 Unknown Rx Magnesium Hydroxide [Milk of 30 ml PO Q4H PRN oral.liqd 03/28/19 04/15/19 Unknown Rx Magnesia] Active Meds: Active Medications Acetaminophen (Tylenol) 650 mg PO Q4H PRN PRN Reason: Pain MILD(1-3)/Fever >100.5/CASTANEDA Enoxaparin Sodium (Enoxaparin) 30 mg SUB-Q QDAY SELENA Vancomycin HCl 1,250 mg/ (Sodium Chloride) 275 mls @ 166.667 mls/hr IV ONCE ONE Stop: 04/15/19 23:38 Sodium Chloride (Nacl 0.9% 1000 Ml) 1,000 mls @ 125 mls/hr IV DIRECT SELENA Ondansetron HCl (Zofran) 4 mg IV Q8H PRN PRN Reason: Nausea And Vomiting Sodium Chloride (Sodium Chloride Flush Syringe 10 Ml) 10 ml IV BID SELENA Sodium Chloride (Sodium Chloride Flush Syringe 10 Ml) 10 ml IV PRN PRN PRN Reason: LINE FLUSH Exam - Physical Exam Narrative exam: Gen. appearance: Patient lying in bed, no apparent distress HEENT: Normocephalic, atraumatic, pupils equally round and reactive to light, extraocular movement intact, and no sclericterus,. No JVD or thyromegaly or nodule,neck supple, no carotid bruit ,mucous membranes dry, no exudate or erythema Heart: S1, S2, regular rate and rhythm Lungs: Clear anteriorly bilaterally, breathing comfortable Abdomen: Positive bowel sounds, nontender, nondistended, no organomegaly Extremity: no edema, cyanosis, clubbing Skin: No rash, nodules, warm, dry Neuro: Difficult to assess - Constitutional Vitals: Temp Pulse Resp BP Pulse Ox 98.6 F 75 14 119/57 98 04/15/19 20:02 04/15/19 22:00 04/15/19 22:00 04/15/19 22:00 04/15/19 22:00 Results - Labs CBC & Chem 7: 04/15/19 19:10 04/15/19 19:10 Labs: Abnormal lab results 04/15/19 04/15/19 04/15/19 Range/Units 19:10 19:10 19:10 RDW 15.9 H (13.2-15.2) % [place] % (Auto) 9.2 H (0.0-7.3) % BUN 75 H (9-20) mg/dL Creatinine 2.9 H (0.8-1.5) mg/dL Glucose 112 H (75-100) mg/dL Total Creatine Kinase 535 H (55-170) units/L Troponin T 0.080 H (0.00-0.029) ng/mL Albumin 3.1 L (3.9-5) g/dL Triglycerides 207 H (2-149) mg/dL HDL Cholesterol 31 L (40-59) mg/dL Urine WBC (Auto) (0.0-6.0) /HPF Salicylates < 0.3 L (2.8-20.0) mg/dL Acetaminophen (10.0-30.0) ug/mL 04/15/19 04/15/19 Range/Units 19:10 20:22 RDW (13.2-15.2) % [place] % (Auto) (0.0-7.3) % BUN (9-20) mg/dL Creatinine (0.8-1.5) mg/dL Glucose (75-100) mg/dL Total Creatine Kinase (55-170) units/L Troponin T (0.00-0.029) ng/mL Albumin (3.9-5) g/dL Triglycerides (2-149) mg/dL HDL Cholesterol (40-59) mg/dL Urine WBC (Auto) 165.0 H (0.0-6.0) /HPF Salicylates (2.8-20.0) mg/dL Acetaminophen < 5.0 L (10.0-30.0) ug/mL - Imaging and Cardiology Chest x-ray: report reviewed CT Scan - head: report reviewed Assessment and Plan Assessment Acute renal failure Start IV fluid, monitor kidney function Check ultrasound of the kidneys Urinary tract infection Start IV antibiotic, follow cultures Abnormal cardiac enzymes Patient had a stress test last admission, March 28 which was negative Continue to monitor, cardiac enzymes have been trending down Hypertension Continue appropriate outpatient medications Depression/GERD, COPD, stable DVT prophylaxis
[2019-04-16 00:07] LABS: Creatine Kinase MB 6.9 ng/mL (0.0-4.0)
[2019-04-16] MEDS: SODIUM CHLORIDE 0.9% 1000 ML 1,000 ML IV SCH ×2 (00:45→09:14)
[2019-04-16 06:35] LABS: Basophils % (Auto) 0.6 % (0.0-1.8); Eosinophils # (Auto) 0.1 K/mm3 (0.0-0.4); Eosinophils % (Auto) 1.9 % (0.0-4.3); Hematocrit 39.2 % (35.5-45.6); Hemoglobin 12.9 gm/dl (11.8-15.2); Lymphocytes # (Auto) 1.7 K/mm3 (1.2-5.4); Lymphocytes % (Auto) 22.1 % (13.4-35.0); Mean Corpuscular HGB Conc 33 % (32-34); Mean Corpuscular Volume 87 fl (84-94); Monocytes # (Auto) 0.7 K/mm3 (0.0-0.8); Monocytes % (Auto) 8.6 % (0.0-7.3); Platelet Count 212 K/mm3 (140-440); Red Cell Distribution Width 16.2 % (13.2-15.2)
[2019-04-16 06:43] LABS: Calcium 7.9 mg/dL (8.4-10.2)
[2019-04-16 06:45] LABS: Creatine Kinase MB 6.6 ng/mL (0.0-4.0)
[2019-04-16] MEDS: cefTRIAXone/NS 1 GM/50 ML 1 GM/50 ML BAG IV SCH (09:04)
[2019-04-16] MEDS: ENOXAPARIN 40 MG/0.4 ML INJ SUB-Q SCH (09:04)
--- NOTE | 2019-04-16 12:16 | Ultrasound Report ---
ULTRASOUND RENAL INDICATION / CLINICAL INFORMATION: arf. COMPARISON: None available. FINDINGS: RIGHT KIDNEY: Length = 11.7 cm. [normal > 9 cm] - Parenchymal Thickness = 1.1 cm. [normal > 1.5 cm] - Echogenicity: Normal. - Hydronephrosis: None. - Cyst or mass: No significant abnormality. - Stones: None seen. LEFT KIDNEY: Length = 10.5 cm. [normal > 9 cm] - Parenchymal Thickness = 1.2 cm. [normal > 1.5 cm] - Echogenicity: Normal. - Hydronephrosis: None. - Cyst or mass: No significant abnormality. - Stones: None seen. URINARY BLADDER: No significant abnormality. FREE FLUID: None. ADDITIONAL FINDINGS: Bilateral renal cortical irregularity.. IMPRESSION: 1. 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 2. No hydronephrosis. Signer Name: Jerrod Haney MD Signed: 04/16/2019 12:11 PM Workstation Name: [id number]
[2019-04-16] MEDS ORDERED: HALOPERIDOL LACTATE 5 MG/1 ML INJ IM PRN (13:41)
[2019-04-16] MEDS ORDERED: MAGNESIUM HYDROXIDE (MOM) ORAL LIQD UDC PO PRN (13:42)
--- NOTE | 2019-04-16 13:44 | Progress Note ---
Assessment and Plan Assessment and plan: Acute kidney injury due to vasomotor nephropathy Continue IV fluids Check ultrasound of the kidneys Encephalopathy etiolgy unclear Neurology consulted psych consulted Urinary tract infection Continue IV Ceftriaxone Abnormal cardiac enzymes Patient had a stress test last admission, March 28 which was negative Continue to monitor, cardiac enzymes have been trending down Hypertension Continue appropriate outpatient medications Depression consult Psych COPD Hypernatremia. repeat BMP in am Change ivf History Interval history: Altered mental status Confused agitated Hospitalist Physical - Physical exam Narrative exam: GEN: Not in acute distress, lying in bed, HEENT: Normocephalic, atraumatic, Neck: supple, No JVD Lungs: Clear to auscultation bilat, no wheeze, heart;S1 and S2 reg, no murmurs, rubs or gallop Abd:soft, Non tender, non distended, normal bowel sounds Ext: No edema, no clubbing, no cyanosis Neuro: Awake, confused, agitated, residual right sided weakness, moves left upper and lower ext, follows commands - Constitutional Vitals: Temp Pulse Resp BP Pulse Ox 98.0 F 92 H 18 134/85 96 04/16/19 03:27 04/16/19 03:27 04/16/19 03:27 04/16/19 03:27 04/16/19 08:35 Results - Labs CBC & Chem 7: 04/16/19 05:55 04/16/19 05:55 Labs: Laboratory Last Values WBC 7.8 K/mm3 (4.5-11.0) 04/16/19 05:55 RBC 4.50 M/mm3 (3.65-5.03) 04/16/19 05:55 Hgb 12.9 gm/dl (11.8-15.2) 04/16/19 05:55 Hct 39.2 % (35.5-45.6) 04/16/19 05:55 MCV 87 fl (84-94) 04/16/19 05:55 MCH 29 pg (28-32) 04/16/19 05:55 MCHC 33 % (32-34) 04/16/19 05:55 RDW 16.2 % (13.2-15.2) H 04/16/19 05:55 Plt Count 212 K/mm3 (140-440) 04/16/19 05:55 Lymph % (Auto) 22.1 % (13.4-35.0) 04/16/19 05:55 [place] % (Auto) 8.6 % (0.0-7.3) H 04/16/19 05:55 Eos % (Auto) 1.9 % (0.0-4.3) 04/16/19 05:55 Baso % (Auto) 0.6 % (0.0-1.8) 04/16/19 05:55 Lymph # 1.7 K/mm3 (1.2-5.4) 04/16/19 05:55 [place] # 0.7 K/mm3 (0.0-0.8) 04/16/19 05:55 Eos # 0.1 K/mm3 (0.0-0.4) 04/16/19 05:55 Baso # 0.0 K/mm3 (0.0-0.1) 04/16/19 05:55 Seg Neutrophils % 66.8 % (40.0-70.0) 04/16/19 05:55 Seg Neutrophils # 5.2 K/mm3 (1.8-7.7) 04/16/19 05:55 Sodium 147 mmol/L (137-145) H 04/16/19 05:55 Potassium 4.1 mmol/L (3.6-5.0) 04/16/19 05:55 Chloride 114.0 mmol/L (98-107) H 04/16/19 05:55 Carbon Dioxide 20 mmol/L (22-30) L 04/16/19 05:55 Anion Gap 17 mmol/L 04/16/19 05:55 BUN 57 mg/dL (9-20) H 04/16/19 05:55 Creatinine 1.7 mg/dL (0.8-1.5) H 04/16/19 05:55 Estimated GFR 42 ml/min 04/16/19 05:55 BUN/Creatinine Ratio 34 % 04/16/19 05:55 Glucose 89 mg/dL (75-100) 04/16/19 05:55 Lactic Acid 1.00 mmol/L (0.7-2.0) 04/15/19 23:27 Calcium 7.9 mg/dL (8.4-10.2) L 04/16/19 05:55 Total Bilirubin 0.40 mg/dL (0.1-1.2) 04/15/19 19:10 AST 25 units/L (5-40) 04/15/19 19:10 ALT 13 units/L (7-56) 04/15/19 19:10 Alkaline Phosphatase 61 units/L (35-129) 04/15/19 19:10 Ammonia 27.0 umol/L (25-60) 04/15/19 19:10 Total Creatine Kinase 310 units/L (55-170) H 04/16/19 05:55 CK-MB (CK-2) 6.6 ng/mL (0.0-4.0) H 04/16/19 05:55 CK-MB (CK-2) Rel Index 2.1 (0-4) 04/16/19 05:55 Troponin T 0.042 ng/mL (0.00-0.029) H D 04/16/19 05:55 Total Protein 6.4 g/dL (6.3-8.2) 04/15/19 19:10 Albumin 3.1 g/dL (3.9-5) L 04/15/19 19:10 Albumin/Globulin Ratio 0.9 % 04/15/19 19:10 Triglycerides 207 mg/dL (2-149) H 04/15/19 19:10 Cholesterol 122 mg/dL (50-199) 04/15/19 19:10 LDL Cholesterol Direct 53 mg/dL (50-130) 04/15/19 19:10 HDL Cholesterol 31 mg/dL (40-59) L 04/15/19 19:10 Cholesterol/HDL Ratio 3.93 % 04/15/19 19:10 Urine Color [place] (Yellow) 04/15/19 20:22 Urine Turbidity Cloudy (Clear) 04/15/19 20:22 Urine pH 5.0 (5.0-7.0) 04/15/19 20:22 Ur Specific [place] 1.017 (1.003-1.030) 04/15/19 20:22 Urine Protein 30 mg/dl mg/dL (Negative) 04/15/19 20:22 Urine Glucose (UA) Neg mg/dL (Negative) 04/15/19 20:22 Urine Ketones Neg mg/dL (Negative) 04/15/19 20:22 Urine Blood Neg (Negative) 04/15/19 20:22 Urine Nitrite Neg (Negative) 04/15/19 20:22 Urine Bilirubin Neg (Negative) 04/15/19 20:22 Urine Urobilinogen < 2.0 mg/dL (<2.0) 04/15/19 20:22 Ur Leukocyte Esterase Lg (Negative) 04/15/19 20:22 Urine WBC (Auto) 165.0 /HPF (0.0-6.0) H 04/15/19 20:22 Urine RBC (Auto) 27.0 /HPF (0.0-6.0) 04/15/19 20:22 U Epithel Cells (Auto) < 1.0 /HPF (0-13.0) 04/15/19 20:22 Urine Bacteria (Auto) 1+ /HPF (Negative) 04/15/19 20:22 Urine Mucus Few /HPF 04/15/19 20:22 Salicylates < 0.3 mg/dL (2.8-20.0) L 04/15/19 19:10 Urine Opiates Screen Presumptive negative 04/15/19 20:22 Urine Methadone Screen Presumptive negative 04/15/19 20:22 Acetaminophen < 5.0 ug/mL (10.0-30.0) L 04/15/19 19:10 Ur Barbiturates Screen Presumptive negative 04/15/19 20:22 Ur Phencyclidine Scrn Presumptive negative 04/15/19 20:22 Ur Amphetamines Screen Presumptive negative 04/15/19 20:22 U Benzodiazepines Scrn Presumptive negative 04/15/19 20:22 Urine Cocaine Screen Presumptive negative 04/15/19 20:22 U Marijuana (THC) Screen Presumptive negative 04/15/19 20:22 Drugs of Abuse Note Disclamer 04/15/19 20:22 Plasma/Serum Alcohol < 0.01 % (0-0.07) 04/15/19 19:10 Active Medications - Current Medications Current Medications: Generic Name Dose Route Start Last Admin Trade Name Freq PRN Reason Stop Dose Admin Acetaminophen 650 mg 04/15/19 22:16 Tylenol PO Q4H PRN Pain MILD(1-3)/Fever >100.5/CASTANEDA Enoxaparin Sodium 40 mg 04/16/19 10:00 04/16/19 09:04 Enoxaparin SUB-Q 40 mg QDAY@1000 SELENA Administration Haloperidol Lactate 5 mg 04/16/19 13:41 Haldol IM Q6H PRN Agitation Sodium Chloride 1,000 mls @ 125 mls/hr 04/15/19 22:30 04/16/19 09:14 Nacl 0.9% 1000 Ml IV 125 mls/hr DIRECT SELENA Administration Ceftriaxone Sodium 1 gm in 50 mls @ 100 mls/hr 04/16/19 10:00 04/16/19 09:04 Rocephin/Ns 1 Gm/50 Ml IV 100 mls/hr Q24HR SELENA Administration Protocol Ondansetron HCl 4 mg 04/15/19 22:16 Zofran IV Q8H PRN Nausea And Vomiting Sodium Chloride 10 ml 04/16/19 10:00 04/16/19 09:05 Sodium Chloride Flush Syringe 10 Ml IV 10 ml BID SELENA Administration Sodium Chloride 10 ml 04/15/19 22:16 Sodium Chloride Flush Syringe 10 Ml IV PRN PRN LINE FLUSH Nutrition/Malnutrition Assess - Dietary Evaluation Nutrition/Malnutrition Findings: Nutrition Notes Start: 04/16/19 12:42 Freq: Status: Active Protocol: Document 04/16/19 12:42 CC (Rec: 04/16/19 13:00 CC [email or web address]) Co-Sign 04/16/19 12:42 LP Nutrition Notes 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 Pt is non verbal, unable to assess at this time. Observed moderate fat wasting in legs. Burn Absent Trauma Absent Minimum of two criteria No Body Fat Depletion Moderate depletion (severe) #1 Nutrition Diagnosis Predicted suboptimal energy intake Etiology AMS As Evidenced by Signs and Symptoms No diet ordered, no nutrition hx available Is patient on ventilator? No Is Patient Ambulatory and/or Out of Bed No REE-([place]. Jeor-confined to bed) 1751.100 Calculation Used for Recommendations [place] or Additional Notes Protein: 50-64g/day (0.8-1.0g/ kg) Fluid: 1ml/kcal Nutrition Intervention Change Diet Order: cardiac diet when medically feasible Goal #1 Meet at least 75% of energy and protein needs when diet advanced Anticipated Discharge Needs: cardiac diet Follow-Up By: 04/20/19 Additional Comments F/U for diet ordered, ONS need , PO intakes
--- NOTE | 2019-04-16 14:34 | Consultation ---
History of Present Illness Consult date: 04/16/19 Reason for Consult: Altered mental status Chief complaint: Altered mental status History of present illness: Patient is a 58-year-old man with a history of ICH with residual right upper and lower extremity weakness, gastric CA, hypertension, depression, insomnia, psychosis, hyperlipidemia. The patient is a [facility] resident, due to debility after his stroke. His mother feels that he is neglected at the [facility], and she often goes to visit him and take care of him there. Yesterday, she noted that the patient seemed confused, and was not acting himself. He was then brought to [facility] for further evaluation. Since yesterday, his mental status has improved, however he is not yet back at baseline. His mother notes that he does have a baseline as of dysarthria and right-sided weakness, and is nonambulatory at baseline due to deficits from his stroke. Past History Past Medical History: other (history of ICH with residual right upper and lower extremity weakness, gastric CA, hypertension, depression, insomnia, psychosis, hyperlipidemia) Social history: Lives alone (shelter) Family history: no significant family history Medications and Allergies Allergies Allergy/AdvReac Type Severity Reaction Status Date / Time No Known Allergies Allergy Verified 03/25/19 00:27 Home Medications Medication Instructions Recorded Confirmed Last Taken Type Amlodipine Besylate [Norvasc] 10 mg PO DAILY 03/25/19 04/15/19 Unknown History Baclofen [Lioresal] 10 mg PO BID 03/25/19 04/15/19 Unknown History Colchicine 0.6 mg PO BID 03/25/19 04/15/19 Unknown History Divalproex [Brigitte Lundberg] 125 mg PO Q12HR 03/25/19 04/15/19 Unknown History Duloxetine HCl [Drizalma Sprinkle] 30 mg PO DAILY 03/25/19 04/15/19 Unknown History Gabapentin [Neurontin 250 mg/5 ml] 10 ml PO TID 03/25/19 04/15/19 Unknown History HYDROcodone/APAP 5-325 [[place] 1 each PO Q4HR PRN 03/25/19 04/15/19 Unknown History 5-325 mg TAB] Hydralazine HCl 25 mg PO DAILY 03/25/19 04/15/19 Unknown History LORazepam [Ativan] 2 mg PO Q6HR PRN 03/25/19 04/15/19 Unknown History Melatonin [Melatonin 5MG CAP] 5 mg PO QHS 03/25/19 04/15/19 Unknown History Tamsulosin [Flomax] 0.4 mg PO QHS 03/25/19 04/15/19 Unknown History carvediloL [Coreg] 12.5 mg PO BID 03/25/19 04/15/19 Unknown History Aspirin EC 325 mg PO QDAY tablet 03/28/19 04/15/19 Unknown Rx AtorvaSTATin [Lipitor] 40 mg PO QHS tablet 03/28/19 04/15/19 Unknown Rx Magnesium Hydroxide [Milk of 30 ml PO Q4H PRN oral.liqd 03/28/19 04/15/19 Unknown Rx Magnesia] Active Meds: Active Medications Acetaminophen (Tylenol) 650 mg PO Q4H PRN PRN Reason: Pain MILD(1-3)/Fever >100.5/CASTANEDA Atorvastatin Calcium (Lipitor) 40 mg PO QHS [facility] Baclofen (Lioresal) 10 mg PO BID [facility] Colchicine (Colchicine) 0.6 mg PO BID SELENA Duloxetine HCl (Cymbalta) 30 mg PO QDAY [facility] Enoxaparin Sodium (Enoxaparin) 40 mg SUB-Q QDAY@1000 [facility] Last Admin: 04/16/19 09:04 Dose: 40 mg Documented by: Gabapentin (Gabapentin) 500 mg PO TID [facility] Haloperidol Lactate (Haldol) 5 mg IM Q6H PRN PRN Reason: Agitation Sodium Chloride (Nacl 0.9% 1000 Ml) 1,000 mls @ 125 mls/hr IV DIRECT [facility] Last Admin: 04/16/19 09:14 Dose: 125 mls/hr Documented by: Ceftriaxone Sodium (Rocephin/Ns 1 Gm/50 Ml) 1 gm in 50 mls @ 100 mls/hr IV Q24HR [facility]; Protocol Last Admin: 04/16/19 09:04 Dose: 100 mls/hr Documented by: Magnesium Hydroxide (Milk Of Magnesia) 30 ml PO Q4H PRN PRN Reason: Constipation Melatonin (Melatonin) 5 mg PO QHS [facility] Ondansetron HCl (Zofran) 4 mg IV Q8H PRN PRN Reason: Nausea And Vomiting Sodium Chloride (Sodium Chloride Flush Syringe 10 Ml) 10 ml IV BID [facility] Last Admin: 04/16/19 09:05 Dose: 10 ml Documented by: Sodium Chloride (Sodium Chloride Flush Syringe 10 Ml) 10 ml IV PRN PRN PRN Reason: LINE FLUSH Tamsulosin HCl (Flomax) 0.4 mg PO QHS [facility] Review of Systems All systems: negative Neurological: change in mentation Physical Examination - Vital Signs Vital Signs: Vital Signs Temp 97.8 F 04/15/19 18:13 - Physical Exam Narrative exam: Patient is alert, awake, oriented to self/year/location, follows 2-step commands. PERRL, EOMI, Rt. HH, tongue midline, bilaterally intact to LT, mild right facial weakness noted. Right upper extremity 0/5, right lower extremity 1/5, left upper and lower extremities 5/5. Bilaterally intact light touch. 3+ reflexes on RUE/RLE, 2+ on LUE/LLE. Patient noted to have significant dysarthria, no aphasia. - Constitutional General appearance: uncomfortable - EENT EENT: Present: ATNC, PERRL, mucous membranes moist, hearing intact - Respiratory Respiratory: Present: lungs clear, normal breath sounds - Cardiovascular Cardiovascular: Present: regular rate, normal S1, normal S2 Extremities: Present: no clubbing, cyanosis - Gastrointestinal Gastrointestinal: Present: normoactive bowel sounds, soft, non-tender - Integumentary Integumentary: Present: normal - Musculoskeletal Musculoskeletal: Present: no fluid collection Results - Laboratory Findings CBC and BMP: 04/16/19 05:55 04/16/19 05:55 Abnormal Lab Findings: Abnormal Labs 04/15/19 04/15/19 04/15/19 19:10 19:10 19:10 RDW 15.9 H [place] % (Auto) 9.2 H Sodium Chloride Carbon Dioxide BUN 75 H Creatinine 2.9 H Glucose 112 H Calcium Total Creatine Kinase 535 H CK-MB (CK-2) Troponin T 0.080 H Albumin 3.1 L Triglycerides 207 H HDL Cholesterol 31 L Urine WBC (Auto) Salicylates < 0.3 L Acetaminophen 04/15/19 04/15/19 04/15/19 19:10 20:22 23:27 RDW [place] % (Auto) Sodium Chloride Carbon Dioxide BUN Creatinine Glucose Calcium Total Creatine Kinase 423 H CK-MB (CK-2) 6.9 H Troponin T 0.057 H D Albumin Triglycerides HDL Cholesterol Urine WBC (Auto) 165.0 H Salicylates Acetaminophen < 5.0 L 04/16/19 04/16/19 04/16/19 05:55 05:55 05:55 RDW 16.2 H [place] % (Auto) 8.6 H Sodium 147 H Chloride 114.0 H Carbon Dioxide 20 L BUN 57 H Creatinine 1.7 H Glucose Calcium 7.9 L Total Creatine Kinase 310 H CK-MB (CK-2) 6.6 H Troponin T 0.042 H D Albumin Triglycerides HDL Cholesterol Urine WBC (Auto) Salicylates Acetaminophen Assessment and Plan Patient is a 58-year-old man with a history of ICH with residual right upper and lower extremity weakness, gastric CA, hypertension, depression, insomnia, psychosis, hyperlipidemia, who presents with altered mental status. According the patient's clinical findings, he likely has metabolic encephalopathy. In support of this diagnosis, the patient was found to have a UTI, acute renal failure, dehydration, and was hypotensive on admission. The worsening of dysarthria is likely due to recrudescence of previous stroke symptoms and event to metabolic derangements. Plan: 1. Metabolic encephalopathy/Recrudescence of previous stroke symptoms in setting of metabolic derangements: -Patient found to have UTI, ARF, dehydration, and was hypotensive on admission. -CT head: Chronic left basal ganglia hematoma. No acute abnormalities. -Mental status is now improving. His worsening of dysarthria is likely due to recrudescence of previous stroke symptoms in setting of metabolic abnormalities and infection. -Continue to treat UTI, ARF, and dehydration per primary team. -Recommend physical therapy and speech therapy. -Will sign off. Please call with any questions. Thank you for allowing me to take part in the care of this patient. Ezequiel Fermin MD Neurology
[2019-04-16] MEDS: GABAPENTIN 500 MG/10 ML ORAL LIQD PO SCH ×2 (16:07→22:18)
[2019-04-16] MEDS: SODIUM CHLORIDE 0.45% 1000 ML 1,000 ML IV SCH (18:13)
[2019-04-16] MEDS ORDERED: MELATONIN 5 MG PO SCH (22:00)
[2019-04-16] MEDS: MELATONIN 5 MG TAB PO SCH (22:23)
[2019-04-16] MEDS: COLCHICINE 0.6 MG CAP PO SCH (22:23)
[2019-04-16] MEDS: BACLOFEN 10 MG TAB PO SCH (22:23)
[2019-04-16] MEDS: TAMSULOSIN 0.4 MG CAP PO SCH (22:23)
[2019-04-17] MEDS: SODIUM CHLORIDE 0.45% 1000 ML 1,000 ML IV SCH ×2 (02:22→13:43)
--- NOTE | 2019-04-17 09:08 | Progress Note ---
Assessment and Plan Assessment and plan: Acute kidney injury due to vasomotor nephropathy Improving Continue IV fluids Check ultrasound of the kidneys Acute metabolic Encephalopathy Neurology consulted, was following I discussed with Dr. Fermin psych consulted Urinary tract infection Continue IV Ceftriaxone Abnormal cardiac enzymes Patient had a stress test last admission, March 28 which was negative Continue to monitor, cardiac enzymes have been trending down Hypertension Continue appropriate outpatient medications Depression consult Psych COPD Hypernatremia. Improved Na 144 today History Interval history: Altered mental status Confused agitated Hospitalist Physical - Physical exam Narrative exam: GEN: Not in acute distress, lying in bed, HEENT: Normocephalic, atraumatic, Neck: supple, No JVD Lungs: Clear to auscultation bilat, no wheeze, heart;S1 and S2 reg, no murmurs, rubs or gallop Abd:soft, Non tender, non distended, normal bowel sounds Ext: No edema, no clubbing, no cyanosis Neuro: Awake, confused, agitated, residual right sided weakness, moves left upper and lower ext, follows commands - Constitutional Vitals: Temp Pulse Resp BP Pulse Ox 98.6 F 103 H 18 121/85 98 04/17/19 07:50 04/17/19 07:50 04/17/19 07:50 04/17/19 07:50 04/17/19 07:50 Results - Labs CBC & Chem 7: 04/17/19 09:30 04/17/19 09:30 Labs: Laboratory Last Values WBC 7.8 K/mm3 (4.5-11.0) 04/16/19 05:55 RBC 4.50 M/mm3 (3.65-5.03) 04/16/19 05:55 Hgb 12.9 gm/dl (11.8-15.2) 04/16/19 05:55 Hct 39.2 % (35.5-45.6) 04/16/19 05:55 MCV 87 fl (84-94) 04/16/19 05:55 MCH 29 pg (28-32) 04/16/19 05:55 MCHC 33 % (32-34) 04/16/19 05:55 RDW 16.2 % (13.2-15.2) H 04/16/19 05:55 Plt Count 212 K/mm3 (140-440) 04/16/19 05:55 Lymph % (Auto) 22.1 % (13.4-35.0) 04/16/19 05:55 [place] % (Auto) 8.6 % (0.0-7.3) H 04/16/19 05:55 Eos % (Auto) 1.9 % (0.0-4.3) 04/16/19 05:55 Baso % (Auto) 0.6 % (0.0-1.8) 04/16/19 05:55 Lymph # 1.7 K/mm3 (1.2-5.4) 04/16/19 05:55 [place] # 0.7 K/mm3 (0.0-0.8) 04/16/19 05:55 Eos # 0.1 K/mm3 (0.0-0.4) 04/16/19 05:55 Baso # 0.0 K/mm3 (0.0-0.1) 04/16/19 05:55 Seg Neutrophils % 66.8 % (40.0-70.0) 04/16/19 05:55 Seg Neutrophils # 5.2 K/mm3 (1.8-7.7) 04/16/19 05:55 Sodium 147 mmol/L (137-145) H 04/16/19 05:55 Potassium 4.1 mmol/L (3.6-5.0) 04/16/19 05:55 Chloride 114.0 mmol/L (98-107) H 04/16/19 05:55 Carbon Dioxide 20 mmol/L (22-30) L 04/16/19 05:55 Anion Gap 17 mmol/L 04/16/19 05:55 BUN 57 mg/dL (9-20) H 04/16/19 05:55 Creatinine 1.7 mg/dL (0.8-1.5) H 04/16/19 05:55 Estimated GFR 42 ml/min 04/16/19 05:55 BUN/Creatinine Ratio 34 % 04/16/19 05:55 Glucose 89 mg/dL (75-100) 04/16/19 05:55 Lactic Acid 1.00 mmol/L (0.7-2.0) 04/15/19 23:27 Calcium 7.9 mg/dL (8.4-10.2) L 04/16/19 05:55 Total Bilirubin 0.40 mg/dL (0.1-1.2) 04/15/19 19:10 AST 25 units/L (5-40) 04/15/19 19:10 ALT 13 units/L (7-56) 04/15/19 19:10 Alkaline Phosphatase 61 units/L (35-129) 04/15/19 19:10 Ammonia 27.0 umol/L (25-60) 04/15/19 19:10 Total Creatine Kinase 310 units/L (55-170) H 04/16/19 05:55 CK-MB (CK-2) 6.6 ng/mL (0.0-4.0) H 04/16/19 05:55 CK-MB (CK-2) Rel Index 2.1 (0-4) 04/16/19 05:55 Troponin T 0.042 ng/mL (0.00-0.029) H D 04/16/19 05:55 Total Protein 6.4 g/dL (6.3-8.2) 04/15/19 19:10 Albumin 3.1 g/dL (3.9-5) L 04/15/19 19:10 Albumin/Globulin Ratio 0.9 % 04/15/19 19:10 Triglycerides 207 mg/dL (2-149) H 04/15/19 19:10 Cholesterol 122 mg/dL (50-199) 04/15/19 19:10 LDL Cholesterol Direct 53 mg/dL (50-130) 04/15/19 19:10 HDL Cholesterol 31 mg/dL (40-59) L 04/15/19 19:10 Cholesterol/HDL Ratio 3.93 % 04/15/19 19:10 Urine Color [place] (Yellow) 04/15/19 20:22 Urine Turbidity Cloudy (Clear) 04/15/19 20:22 Urine pH 5.0 (5.0-7.0) 04/15/19 20:22 Ur Specific [place] 1.017 (1.003-1.030) 04/15/19 20:22 Urine Protein 30 mg/dl mg/dL (Negative) 04/15/19 20:22 Urine Glucose (UA) Neg mg/dL (Negative) 04/15/19 20:22 Urine Ketones Neg mg/dL (Negative) 04/15/19 20:22 Urine Blood Neg (Negative) 04/15/19 20:22 Urine Nitrite Neg (Negative) 04/15/19 20:22 Urine Bilirubin Neg (Negative) 04/15/19 20:22 Urine Urobilinogen < 2.0 mg/dL (<2.0) 04/15/19 20:22 Ur Leukocyte Esterase Lg (Negative) 04/15/19 20:22 Urine WBC (Auto) 165.0 /HPF (0.0-6.0) H 04/15/19 20:22 Urine RBC (Auto) 27.0 /HPF (0.0-6.0) 04/15/19 20:22 U Epithel Cells (Auto) < 1.0 /HPF (0-13.0) 04/15/19 20:22 Urine Bacteria (Auto) 1+ /HPF (Negative) 04/15/19 20:22 Urine Mucus Few /HPF 04/15/19 20:22 Salicylates < 0.3 mg/dL (2.8-20.0) L 04/15/19 19:10 Urine Opiates Screen Presumptive negative 04/15/19 20:22 Urine Methadone Screen Presumptive negative 04/15/19 20:22 Acetaminophen < 5.0 ug/mL (10.0-30.0) L 04/15/19 19:10 Ur Barbiturates Screen Presumptive negative 04/15/19 20:22 Ur Phencyclidine Scrn Presumptive negative 04/15/19 20:22 Ur Amphetamines Screen Presumptive negative 04/15/19 20:22 U Benzodiazepines Scrn Presumptive negative 04/15/19 20:22 Urine Cocaine Screen Presumptive negative 04/15/19 20:22 U Marijuana (THC) Screen Presumptive negative 04/15/19 20:22 Drugs of Abuse Note Disclamer 04/15/19 20:22 Plasma/Serum Alcohol < 0.01 % (0-0.07) 04/15/19 19:10 Active Medications - Current Medications Current Medications: Generic Name Dose Route Start Last Admin Trade Name Freq PRN Reason Stop Dose Admin Acetaminophen 650 mg 04/15/19 22:16 Tylenol PO Q4H PRN Pain MILD(1-3)/Fever >100.5/CASTANEDA Atorvastatin Calcium 40 mg 04/16/19 22:00 04/16/19 22:22 Lipitor PO 40 mg QHS SELENA Administration Baclofen 10 mg 04/16/19 22:00 04/16/19 22:23 Lioresal PO 10 mg BID SELENA Administration Colchicine 0.6 mg 04/16/19 22:00 04/16/19 22:23 Colchicine PO 0.6 mg BID SELENA Administration Duloxetine HCl 30 mg 04/17/19 10:00 Cymbalta PO QDAY SELENA Enoxaparin Sodium 40 mg 04/16/19 10:00 04/16/19 09:04 Enoxaparin SUB-Q 40 mg QDAY@1000 SELENA Administration Gabapentin 500 mg 04/16/19 14:00 04/16/19 22:18 Gabapentin PO 500 mg TID SELENA Administration Haloperidol Lactate 5 mg 04/16/19 13:41 04/16/19 16:00 Haldol IM 5 mg Q6H PRN Administration Agitation Ceftriaxone Sodium 1 gm in 50 mls @ 100 mls/hr 04/16/19 10:00 04/16/19 09:04 Rocephin/Ns 1 Gm/50 Ml IV 100 mls/hr Q24HR SELENA Administration Protocol Sodium Chloride 1,000 mls @ 100 mls/hr 04/16/19 17:00 04/17/19 02:22 Nacl 0.45% 1000 Ml IV 100 mls/hr DIRECT SELENA Administration Magnesium Hydroxide 30 ml 04/16/19 13:42 Milk Of Magnesia PO Q4H PRN Constipation Melatonin 5 mg 04/16/19 22:00 04/16/19 22:23 Melatonin PO 5 mg QHS SELENA Administration Ondansetron HCl 4 mg 04/15/19 22:16 Zofran IV Q8H PRN Nausea And Vomiting Sodium Chloride 10 ml 04/16/19 10:00 04/16/19 22:23 Sodium Chloride Flush Syringe 10 Ml IV Not Given BID SELENA Sodium Chloride 10 ml 04/15/19 22:16 Sodium Chloride Flush Syringe 10 Ml IV PRN PRN LINE FLUSH Tamsulosin HCl 0.4 mg 04/16/19 22:00 04/16/19 22:23 Flomax PO 0.4 mg QHS SELENA Administration Nutrition/Malnutrition Assess - Dietary Evaluation Nutrition/Malnutrition Findings: Nutrition Notes Start: 04/16/19 12:42 Freq: Status: Active Protocol: Document 04/16/19 12:42 CC (Rec: 04/16/19 13:00 CC [email or web address]) Co-Sign 04/16/19 12:42 LP Nutrition Notes Need for Assessment generated from: internet marketer Initial or Follow up Assessment Current Diagnosis Acute Kidney Injury,COPD, Hypertension,Stroke Other Pertinent Diagnosis GERD, AMS, nontramatic intracranial hemorrhage, UTI, neoplasm of stomach Current Diet No diet Labs/Tests Na 147 BUN 57 Creat 1.7 Pertinent Medications NS at 125 ml/hr Height 5 ft 9 in Weight 63.503 kg [place] Body Weight (kg) 72.72 BMI 20.7 Weight Status Appropriate Subjective/Other Information Screen for skin risk assement </=18. Pt is non verbal, unable to assess at this time. Observed moderate fat wasting in legs. Burn Absent Trauma Absent Minimum of two criteria No Body Fat Depletion Moderate depletion (severe) #1 Nutrition Diagnosis Predicted suboptimal energy intake Etiology AMS As Evidenced by Signs and Symptoms No diet ordered, no nutrition hx available Is patient on ventilator? No Is Patient Ambulatory and/or Out of Bed No REE-([place]-[facility] Jeor-confined to bed) 1751.100 [facility]culation [facility] Additional Notes Protein: 50-64g/day (0.8-1.0g/ kg) Fluid: 1ml/kcal Nutrition Intervention Change Diet Order: cardiac diet when medically feasible Goal #1 Meet at least 75% of energy and protein needs when diet advanced Anticipated Discharge Needs: cardiac diet Follow-Up By: 04/20/19 Additional Comments F/U for diet ordered, ONS need , PO intakes
[2019-04-17] MEDS: COLCHICINE 0.6 MG CAP PO SCH ×2 (09:16→21:49)
[2019-04-17] MEDS: BACLOFEN 10 MG TAB PO SCH ×2 (09:16→21:49)
[2019-04-17] MEDS: DULoxetine 30 MG CAP PO SCH (09:16)
[2019-04-17] MEDS: cefTRIAXone/NS 1 GM/50 ML 1 GM/50 ML BAG IV SCH (09:16)
[2019-04-17] MEDS: GABAPENTIN 500 MG/10 ML ORAL LIQD PO SCH ×3 (09:16→21:49)
[2019-04-17] MEDS: ENOXAPARIN 40 MG/0.4 ML INJ SUB-Q SCH (09:16)
[2019-04-17] MEDS ORDERED: DULOXETINE HCL 30 MG PO SCH (10:00)
[2019-04-17 10:33] LABS: Hematocrit 39.9 % (35.5-45.6); Hemoglobin 13.5 gm/dl (11.8-15.2); Mean Corpuscular HGB Conc 34 % (32-34); Mean Corpuscular Volume 86 fl (84-94); Platelet Count 203 K/mm3 (140-440); Red Blood Count 4.66 M/mm3 (3.65-5.03); Red Cell Distribution Width 15.8 % (13.2-15.2)
--- NOTE | 2019-04-17 11:01 | Consultation ---
History of Present Illness - Reason for Consult Consult date: 04/17/19 Reason for consult: psychiatric assessment - Chief Complaint Chief complaint: Altered mental status - History of Present Psychiatric Illness Mr. Mendez is a 58-year-old male, the patient was noted in bed with eyes close, he open his eyes when name is called . 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 Unable to converse with patient. The patient nurse reports that the patient is nonverbal at this time and report no behavioral issues. PAST PSYCHIATRIC HISTORY: Unable to assess PAST MEDICAL HISTORY: Family Psychiatric History Unable to assess SOCIAL HISTORY Unable to assess REVIEW OF SYSTEMS ROS cannot be reliably obtained from the patient due to her confusion and somnolence. MENTAL STATUS Unable to assess RECOMMENDATIONS MEDICATIONS: Continue psychiatric medication on chart Risks, benefits and alternatives of medications discussed with the patient, questions answered and consent obtained from patient. PSYCHOTHERAPY: Supportive psychotherapy provided MEDICAL: Per primary team DELIRIUM PRECAUTIONS: Please re-orient patient frequently, keep lights on during the day, and minimize benzodiazepines and opiates as these medications could worsen patient's confusion. 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: DISPOSITION: no indication for acute inpatient psychiatric hospitalization at this time, the patient is noted confused, unable to converse LEGAL STATUS: FOLLOW-UP: Will follow Medications and Allergies Allergies Allergy/AdvReac Type Severity Reaction Status Date / Time No Known Allergies Allergy Verified 03/25/19 00:27 Home Medications Medication Instructions Recorded Confirmed Last Taken Type Amlodipine Besylate [Norvasc] 10 mg PO DAILY 03/25/19 04/15/19 Unknown History Baclofen [Lioresal] 10 mg PO BID 03/25/19 04/15/19 Unknown History Colchicine 0.6 mg PO BID 03/25/19 04/15/[address] [Brigitte Lundberg] 125 mg PO Q12HR 03/25/19 04/15/19 Unknown History Duloxetine HCl [Drizalma Sprinkle] 30 mg PO DAILY 03/25/19 04/15/19 Unknown History Gabapentin [Neurontin 250 mg/5 ml] 10 ml PO TID 03/25/19 04/15/19 Unknown History HYDROcodone/APAP 5-325 [[place] 1 each PO Q4HR PRN 03/25/19 04/15/19 Unknown History 5-325 mg TAB] Hydralazine HCl 25 mg PO DAILY 03/25/19 04/15/19 Unknown History LORazepam [Ativan] 2 mg PO Q6HR PRN 03/25/19 04/15/19 Unknown History Melatonin [Melatonin 5MG CAP] 5 mg PO QHS 03/25/19 04/15/19 Unknown History Tamsulosin [Flomax] 0.4 mg PO QHS 03/25/19 04/15/19 Unknown History carvediloL [Coreg] 12.5 mg PO BID 03/25/19 04/15/19 Unknown History Aspirin EC [Ecotrin] 325 mg PO QDAY tablet 03/28/19 04/15/19 Unknown Rx AtorvaSTATin [Lipitor] 40 mg PO QHS tablet 03/28/19 04/15/19 Unknown Rx Magnesium Hydroxide [Milk of 30 ml PO Q4H PRN oral.liqd 03/28/19 04/15/19 Unknown Rx Magnesia] Active Meds: Active Medications Acetaminophen (Tylenol) 650 mg PO Q4H PRN PRN Reason: Pain MILD(1-3)/Fever >100.5/CASTANEDA Atorvastatin Calcium (Lipitor) 40 mg PO QHS [facility] Last Admin: 04/16/19 22:22 Dose: 40 mg Documented by: Baclofen (Lioresal) 10 mg PO BID [facility] Last Admin: 04/17/19 09:16 Dose: 10 mg Documented by: Colchicine (Colchicine) 0.6 mg PO BID [facility] Last Admin: 04/17/19 09:16 Dose: 0.6 mg Documented by: Duloxetine HCl (Cymbalta) 30 mg PO QDAY [facility] Last Admin: 04/17/19 09:16 Dose: 30 mg Documented by: Enoxaparin Sodium (Enoxaparin) 40 mg SUB-Q QDAY@1000 [facility] Last Admin: 04/17/19 09:16 Dose: 40 mg Documented by: Gabapentin (Gabapentin) 500 mg PO TID [facility] Last Admin: 04/17/19 09:16 Dose: 500 mg Documented by: Haloperidol Lactate (Haldol) 5 mg IM Q6H PRN PRN Reason: Agitation Last Admin: 04/16/19 16:00 Dose: 5 mg Documented by: Ceftriaxone Sodium (Rocephin/Ns 1 Gm/50 Ml) 1 gm in 50 mls @ 100 mls/hr IV Q24HR [facility]; Protocol Last Admin: 04/17/19 09:16 Dose: 100 mls/hr Documented by: Sodium Chloride (Nacl 0.45% 1000 Ml) 1,000 mls @ 100 mls/hr IV DIRECT [facility] Last Admin: 04/17/19 02:22 Dose: 100 mls/hr Documented by: Magnesium Hydroxide (Milk Of Magnesia) 30 ml PO Q4H PRN PRN Reason: Constipation Melatonin (Melatonin) 5 mg PO QHS [facility] Last Admin: 04/16/19 22:23 Dose: 5 mg Documented by: Ondansetron HCl (Zofran) 4 mg IV Q8H PRN PRN Reason: Nausea And Vomiting Sodium Chloride (Sodium Chloride Flush Syringe 10 Ml) 10 ml IV BID [facility] Last Admin: 04/17/19 09:16 Dose: 10 ml Documented by: Sodium Chloride (Sodium Chloride Flush Syringe 10 Ml) 10 ml IV PRN PRN PRN Reason: LINE FLUSH Tamsulosin HCl (Flomax) 0.4 mg PO QHS [facility] Last Admin: 04/16/19 22:23 Dose: 0.4 mg Documented by: Mental Status Exam - Vital signs Last Vital Signs Temp 98.6 F 04/17/19 07:50 Pulse 103 H 04/17/19 07:50 Resp 18 04/17/19 07:50 BP 121/85 04/17/19 07:50 Pulse Ox 98 04/17/19 07:50 Results Result Diagrams: 04/17/19 09:30 04/17/19 09:30 Abnormal lab results 04/17/19 Range/Units 09:30 WBC 11.1 H (4.5-11.0) K/mm3 RDW 15.8 H (13.2-15.2) % All other labs normal.
[2019-04-17 11:06] LABS: BUN/Creatinine Ratio 44; Blood Urea Nitrogen 31 mg/dL (9-20); Calcium 8.4 mg/dL (8.4-10.2); Hemolysis Index 18
[2019-04-17] MEDS: TAMSULOSIN 0.4 MG CAP PO SCH (21:49)
[2019-04-17] MEDS: MELATONIN 5 MG TAB PO SCH (21:49)
[2019-04-18] MEDS: GABAPENTIN 500 MG/10 ML ORAL LIQD PO SCH ×3 (08:11→23:04)
[2019-04-18] MEDS: cefTRIAXone/NS 1 GM/50 ML 1 GM/50 ML BAG IV SCH (10:39)
[2019-04-18] MEDS: ENOXAPARIN 40 MG/0.4 ML INJ SUB-Q SCH (10:39)
[2019-04-18] MEDS: COLCHICINE 0.6 MG CAP PO SCH ×2 (10:39→23:03)
[2019-04-18] MEDS: BACLOFEN 10 MG TAB PO SCH ×2 (10:39→23:03)
[2019-04-18] MEDS: DULoxetine 30 MG CAP PO SCH (10:39)
[2019-04-18] MEDS: SODIUM CHLORIDE 0.45% 1000 ML 1,000 ML IV SCH (10:44)
--- NOTE | 2019-04-18 11:35 | Progress Note ---
Subjective - Reason for Consult Consult date: 04/18/19 Reason for consult: psychiatric assessment - Chief Complaint Chief complaint: The patient's medical record was reviewed and the patient's progress was discussed with the nursing staff. The nurse note states. patient received confused with soft wrist restraint to the left and a condom catheter draining clean yellow urine. patient has IV fluids infusing. safety precautions. Will continue to monitor During my interview with the patient this morning the patient is in bed with eyes closed easily aroused alert oriented x1. The patient remains confused but was able to say yes or no to some questions. When asked about suicidal and homicidal ideation patient said no, when asked about seeing or hearing things the patient said no, when asked about eating or sleeping patient said I am sl eeping. The patient appears restless moving about in the bed a lot. The patient is not able to converse in long sentences. The patient answers questions with one-word yes or no ROS: Constitutional: Negative for weight loss ENT: Negative for stridor Respiratory: Negative for cough or hemoptysis All other systems reviewed and are negative MENTAL STATUS General Appearance and Behavior: age appropriate, intermittent eye contact, cooperative with questioning and polite Cooperation: Cooperative Psychomotor Behavior: within normal limits Mood: didnt respond Affect and affective range: Congruent with stated mood Thought Content: unable to assess Speech: mumbles one word Suicidal Ideation: Denies SI Homicidal Ideation: Denies HI Impulse Control: intact Insight and Judgment: unable to assess Memory: unableto assess Attention: Normal Orientation: alert and orientedx1 RECOMMENDATIONS MEDICATIONS: start trazodone 25mg bid-agitation Risks, benefits and alternatives of medications discussed with the patient, questions answered and consent obtained from patient. PSYCHOTHERAPY: Supportive psychotherapy provided MEDICAL: Per primary team DELIRIUM PRECAUTIONS: Please re-orient patient frequently, keep lights on during the day, and minimize benzodiazepines and opiates as these medications could worsen patient's confusion. 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
[2019-04-18] MEDS ORDERED: MELATONIN 5 MG TAB PO PRN (11:45)
--- NOTE | 2019-04-18 16:31 | Progress Note ---
Assessment and Plan Assessment and plan: Acute kidney injury due to vasomotor nephropathy Improving Continue IV fluids Acute metabolic Encephalopathy Improving Neurology consulted, was following I discussed with Dr. Fermin psych consulted Dehydration Present on admission Urinary tract infection Continue IV Ceftriaxone Abnormal cardiac enzymes Patient had a stress test last admission, March 28 which was negative Continue to monitor, cardiac enzymes have been trending down Hypertension Continue appropriate outpatient medications Depression consult Psych COPD Hypernatremia. Improved 04/18/19: improving mental status. I discussed with mother at bedside History Interval history: Altered mental status, improving Less Confused Less agitated Hospitalist Physical - Physical exam Narrative exam: GEN: Not in acute distress, lying in bed, HEENT: Normocephalic, atraumatic, Neck: supple, No JVD Lungs: Clear to auscultation bilat, no wheeze, heart;S1 and S2 reg, no murmurs, rubs or gallop Abd:soft, Non tender, non distended, normal bowel sounds Ext: No edema, no clubbing, no cyanosis Neuro: Awake, confused, agitated, residual right sided weakness, moves left upper and lower ext, follows commands - Constitutional Vitals: Temp Pulse Resp BP Pulse Ox 98.0 F 96 H 18 133/84 97 04/18/19 07:24 04/18/19 10:00 04/18/19 08:15 04/18/19 07:24 04/18/19 04:22 Results - Labs CBC & Chem 7: 04/17/19 09:30 04/17/19 09:30 Labs: Laboratory Last Values WBC 11.1 K/mm3 (4.5-11.0) H 04/17/19 09:30 RBC 4.66 M/mm3 (3.65-5.03) 04/17/19 09:30 Hgb 13.5 gm/dl (11.8-15.2) 04/17/19 09:30 Hct 39.9 % (35.5-45.6) 04/17/19 09:30 MCV 86 fl (84-94) 04/17/19 09:30 MCH 29 pg (28-32) 04/17/19 09:30 MCHC 34 % (32-34) 04/17/19 09:30 RDW 15.8 % (13.2-15.2) H 04/17/19 09:30 Plt Count 203 K/mm3 (140-440) 04/17/19 09:30 Lymph % (Auto) 22.1 % (13.4-35.0) 04/16/19 05:55 [place] % (Auto) 8.6 % (0.0-7.3) H 04/16/19 05:55 Eos % (Auto) 1.9 % (0.0-4.3) 04/16/19 05:55 Baso % (Auto) 0.6 % (0.0-1.8) 04/16/19 05:55 Lymph # 1.7 K/mm3 (1.2-5.4) 04/16/19 05:55 [place] # 0.7 K/mm3 (0.0-0.8) 04/16/19 05:55 Eos # 0.1 K/mm3 (0.0-0.4) 04/16/19 05:55 Baso # 0.0 K/mm3 (0.0-0.1) 04/16/19 05:55 Seg Neutrophils % 66.8 % (40.0-70.0) 04/16/19 05:55 Seg Neutrophils # 5.2 K/mm3 (1.8-7.7) 04/16/19 05:55 Sodium 144 mmol/L (137-145) 04/17/19 09:30 Potassium 4.2 mmol/L (3.6-5.0) 04/17/19 09:30 Chloride 111.1 mmol/L (98-107) H 04/17/19 09:30 Carbon Dioxide 18 mmol/L (22-30) L 04/17/19 09:30 Anion Gap 19 mmol/L 04/17/19 09:30 BUN 31 mg/dL (9-20) H 04/17/19 09:30 Creatinine 0.7 mg/dL (0.8-1.5) L D 04/17/19 09:30 Estimated GFR > 60 ml/min 04/17/19 09:30 BUN/Creatinine Ratio 44 % 04/17/19 09:30 Glucose 114 mg/dL (75-100) H 04/17/19 09:30 Lactic Acid 1.00 mmol/L (0.7-2.0) 04/15/19 23:27 Calcium 8.4 mg/dL (8.4-10.2) 04/17/19 09:30 Total Bilirubin 0.40 mg/dL (0.1-1.2) 04/15/19 19:10 AST 25 units/L (5-40) 04/15/19 19:10 ALT 13 units/L (7-56) 04/15/19 19:10 Alkaline Phosphatase 61 units/L (35-129) 04/15/19 19:10 Ammonia 27.0 umol/L (25-60) 04/15/19 19:10 Total Creatine Kinase 310 units/L (55-170) H 04/16/19 05:55 CK-MB (CK-2) 6.6 ng/mL (0.0-4.0) H 04/16/19 05:55 CK-MB (CK-2) Rel Index 2.1 (0-4) 04/16/19 05:55 Troponin T 0.042 ng/mL (0.00-0.029) H D 04/16/19 05:55 Total Protein 6.4 g/dL (6.3-8.2) 04/15/19 19:10 Albumin 3.1 g/dL (3.9-5) L 04/15/19 19:10 Albumin/Globulin Ratio 0.9 % 04/15/19 19:10 Triglycerides 207 mg/dL (2-149) H 04/15/19 19:10 Cholesterol 122 mg/dL (50-199) 04/15/19 19:10 LDL Cholesterol Direct 53 mg/dL (50-130) 04/15/19 19:10 HDL Cholesterol 31 mg/dL (40-59) L 04/15/19 19:10 Cholesterol/HDL Ratio 3.93 % 04/15/19 19:10 Urine Color [place] (Yellow) 04/15/19 20:22 Urine Turbidity Cloudy (Clear) 04/15/19 20:22 Urine pH 5.0 (5.0-7.0) 04/15/19 20: Ur Specific [place] 1.017 (1.003-1.030) 04/15/19 20:22 Urine Protein 30 mg/dl mg/dL (Negative) 04/15/19 20:22 Urine Glucose (UA) Neg mg/dL (Negative) 04/15/19 20:22 Urine Ketones Neg mg/dL (Negative) 04/15/19 20:22 Urine Blood Neg (Negative) 04/15/19 20:22 Urine Nitrite Neg (Negative) 04/15/19 20:22 Urine Bilirubin Neg (Negative) 04/15/19 20:22 Urine Urobilinogen < 2.0 mg/dL (<2.0) 04/15/19 20:22 Ur Leukocyte Esterase Lg (Negative) 04/15/19 20:22 Urine WBC (Auto) 165.0 /HPF (0.0-6.0) H 04/15/19 20:22 Urine RBC (Auto) 27.0 /HPF (0.0-6.0) 04/15/19 20:22 U Epithel Cells (Auto) < 1.0 /HPF (0-13.0) 04/15/19 20:22 Urine Bacteria (Auto) 1+ /HPF (Negative) 04/15/19 20:22 Urine Mucus Few /HPF 04/15/19 20:22 Salicylates < 0.3 mg/dL (2.8-20.0) L 04/15/19 19:10 Urine Opiates Screen Presumptive negative 04/15/19 20:22 Urine Methadone Screen Presumptive negative 04/15/19 20:22 Acetaminophen < 5.0 ug/mL (10.0-30.0) L 04/15/19 19:10 Ur Barbiturates Screen Presumptive negative 04/15/19 20:22 Ur Phencyclidine Scrn Presumptive negative 04/15/19 20:22 Ur Amphetamines Screen Presumptive negative 04/15/19 20:22 U Benzodiazepines Scrn Presumptive negative 04/15/19 20:22 Urine Cocaine Screen Presumptive negative 04/15/19 20:22 U Marijuana (THC) Screen Presumptive negative 04/15/19 20:22 Drugs of Abuse Note Disclamer 04/15/19 20:22 Plasma/Serum Alcohol < 0.01 % (0-0.07) 04/15/19 19:10 Active Medications - Current Medications Current Medications: Generic Name Dose Route Start Last Admin Trade Name Freq PRN Reason Stop Dose Admin Acetaminophen 650 mg 04/15/19 22:16 Tylenol PO Q4H PRN Pain MILD(1-3)/Fever >100.5/CASTANEDA Atorvastatin Calcium 40 mg 04/16/19 22:00 04/17/19 21:49 Lipitor PO 40 mg QHS SELENA Administration Baclofen 10 mg 04/16/19 22:00 04/18/19 10:39 Lioresal PO 10 mg BID SELENA Administration Colchicine 0.6 mg 04/16/19 22:00 04/18/19 10:39 Colchicine PO 0.6 mg BID SELENA Administration Duloxetine HCl 30 mg 04/17/19 10:00 04/18/19 10:39 Cymbalta PO 30 mg QDAY SELENA Administration Enoxaparin Sodium 40 mg 04/16/19 10:00 04/18/19 10:39 Enoxaparin SUB-Q 40 mg QDAY@1000 SELENA Administration Gabapentin 500 mg 04/16/19 14:00 04/17/19 21:49 Gabapentin PO 500 mg TID SELENA Administration Haloperidol Lactate 5 mg 04/16/19 13:41 04/16/19 16:00 Haldol IM 5 mg Q6H PRN Administration Agitation Ceftriaxone Sodium 1 gm in 50 mls @ 100 mls/hr 04/16/19 10:00 04/18/19 10:39 Rocephin/Ns 1 Gm/50 Ml IV 100 mls/hr Q24HR SELENA Administration Protocol Sodium Chloride 1,000 mls @ 100 mls/hr 04/16/19 17:00 04/18/19 10:44 Nacl 0.45% 1000 Ml IV 100 mls/hr DIRECT SELENA Administration Magnesium Hydroxide 30 ml 04/16/19 13:42 Milk Of Magnesia PO Q4H PRN Constipation Melatonin 5 mg 04/18/19 11:45 Melatonin PO PRN PRN Insomnia Ondansetron HCl 4 mg 04/15/19 22:16 Zofran IV Q8H PRN Nausea And Vomiting Sodium Chloride 10 ml 04/16/19 10:00 04/18/19 10:40 Sodium Chloride Flush Syringe 10 Ml IV 10 ml BID SELENA Administration Sodium Chloride 10 ml 04/15/19 22:16 Sodium Chloride Flush Syringe 10 Ml IV PRN PRN LINE FLUSH Tamsulosin HCl 0.4 mg 04/16/19 22:00 04/17/19 21:49 Flomax PO 0.4 mg QHS SELENA Administration Trazodone HCl 25 mg 04/18/19 22:00 Desyrel PO BID [facility] Nutrition/Malnutrition Assess - Dietary Evaluation Nutrition/Malnutrition Findings: Nutrition Notes Start: 04/16/19 12:42 Freq: Status: Active Protocol: Document 04/16/19 12:42 CC (Rec: 04/16/19 13:00 CC [email or web address]) Co-Sign 04/16/19 12:42 LP Nutrition Notes Need for Assessment 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 Pt is non verbal, unable to assess at this time. Observed moderate fat wasting in legs. Burn Absent Trauma Absent Minimum of two criteria No Body Fat Depletion Moderate depletion (severe) #1 Nutrition Diagnosis Predicted suboptimal energy intake Etiology AMS As Evidenced by Signs and Symptoms No diet ordered, no nutrition hx available Is patient on ventilator? No Is Patient Ambulatory and/or Out of Bed No REE-([place]-confined to bed) 1751.100 Calculation Used for Recommendations [place] Additional Notes Protein: 50-64g/day (0.8-1.0g/ kg) Fluid: 1ml/kcal Nutrition Intervention Change Diet Order: cardiac diet when medically feasible Goal #1 Meet at least 75% of energy and protein needs when diet advanced Anticipated Discharge Needs: cardiac diet Follow-Up By: 04/20/19 Additional Comments F/U for diet ordered, ONS need , PO intakes
[2019-04-18] MEDS: TAMSULOSIN 0.4 MG CAP PO SCH (23:03)
[2019-04-18] MEDS: traZODone 50 MG TAB PO SCH (23:03)
[2019-04-19 05:42] LABS: Hematocrit 34.5 % (35.5-45.6); Hemoglobin 11.7 gm/dl (11.8-15.2); Mean Corpuscular HGB Conc 34 % (32-34); Mean Corpuscular Volume 85 fl (84-94); Platelet Count 170 K/mm3 (140-440); Red Blood Count 4.07 M/mm3 (3.65-5.03); Red Cell Distribution Width 15.6 % (13.2-15.2)
[2019-04-19 06:07] LABS: BUN/Creatinine Ratio 18; Blood Urea Nitrogen 9 mg/dL (9-20); Calcium 8.1 mg/dL (8.4-10.2); Hemolysis Index 9
--- NOTE | 2019-04-19 10:16 | Progress Note ---
Assessment and Plan Assessment and plan: Acute kidney injury due to vasomotor nephropathy Improving Continue IV fluids Acute metabolic Encephalopathy Improving Neurology consulted, was following I discussed with Dr. Fermin psych consulted Dehydration Present on admission Urinary tract infection Continue IV Ceftriaxone Abnormal cardiac enzymes Patient had a stress test last admission, March 28 which was negative Continue to monitor, cardiac enzymes have been trending down Hypertension Continue appropriate outpatient medications Depression consult Psych COPD Hypernatremia. Improved 04/18/19: improving mental status. I discussed with mother at bedside 04/19/19. Agitated today. Cr improved. Likely dc to SNF tomorrow History Interval history: Altered mental status, improving Less Confused Less agitated Hospitalist Physical - Physical exam Narrative exam: GEN: Not in acute distress, lying in bed, HEENT: Normocephalic, atraumatic, Neck: supple, No JVD Lungs: Clear to auscultation bilat, no wheeze, heart;S1 and S2 reg, no murmurs, rubs or gallop Abd:soft, Non tender, non distended, normal bowel sounds Ext: No edema, no clubbing, no cyanosis Neuro: Awake, confused, agitated, residual right sided weakness, moves left upper and lower ext, follows commands - Constitutional Vitals: Temp Pulse Resp BP Pulse Ox 97.5 F L 98 H 18 135/93 92 04/19/19 08:20 04/19/19 08:25 04/19/19 08:20 04/19/19 08:20 04/19/19 03:57 Results - Labs CBC & Chem 7: 04/19/19 04:47 04/19/19 04:47 Labs: Laboratory Last Values WBC 7.5 K/mm3 (4.5-11.0) 04/19/19 04:47 RBC 4.07 M/mm3 (3.65-5.03) 04/19/19 04:47 Hgb 11.7 gm/dl (11.8-15.2) L 04/19/19 04:47 Hct 34.5 % (35.5-45.6) L 04/19/19 04:47 MCV 85 fl (84-94) 04/19/19 04:47 MCH 29 pg (28-32) 04/19/19 04:47 MCHC 34 % (32-34) 04/19/19 04:47 RDW 15.6 % (13.2-15.2) H 04/19/19 04:47 Plt Count 170 K/mm3 (140-440) 04/19/19 04:47 Lymph % (Auto) 22.1 % (13.4-35.0) 04/16/19 05:55 Page % (Auto) 8.6 % (0.0-7.3) H 04/16/19 05:55 Eos % (Auto) 1.9 % (0.0-4.3) 04/16/19 05:55 Baso % (Auto) 0.6 % (0.0-1.8) 04/16/19 05:55 Lymph # 1.7 K/mm3 (1.2-5.4) 04/16/19 05:55 Page # 0.7 K/mm3 (0.0-0.8) 04/16/19 05:55 Eos # 0.1 K/mm3 (0.0-0.4) 04/16/19 05:55 Baso # 0.0 K/mm3 (0.0-0.1) 04/16/19 05:55 Seg Neutrophils % 66.8 % (40.0-70.0) 04/16/19 05:55 Seg Neutrophils # 5.2 K/mm3 (1.8-7.7) 04/16/19 05:55 Sodium 144 mmol/L (137-145) 04/19/19 04:47 Potassium 3.5 mmol/L (3.6-5.0) L 04/19/19 04:47 Chloride 110.3 mmol/L (98-107) H 04/19/19 04:47 Carbon Dioxide 19 mmol/L (22-30) L 04/19/19 04:47 Anion Gap 18 mmol/L 04/19/19 04:47 BUN 9 mg/dL (9-20) 04/19/19 04:47 Creatinine 0.5 mg/dL (0.8-1.5) L 04/19/19 04:47 Estimated GFR > 60 ml/min 04/19/19 04:47 BUN/Creatinine Ratio 18 % 04/19/19 04:47 Glucose 76 mg/dL (75-100) 04/19/19 04:47 POC Glucose 190 (70-105) H 04/19/19 08:29 Lactic Acid 1.00 mmol/L (0.7-2.0) 04/15/19 23:27 Calcium 8.1 mg/dL (8.4-10.2) L 04/19/19 04:47 Total Bilirubin 0.40 mg/dL (0.1-1.2) 04/15/19 19:10 AST 25 units/L (5-40) 04/15/19 19:10 ALT 13 units/L (7-56) 04/15/19 19:10 Alkaline Phosphatase 61 units/L (35-129) 04/15/19 19:10 Ammonia 27.0 umol/L (25-60) 04/15/19 19:10 Total Creatine Kinase 310 units/L (55-170) H 04/16/19 05:55 CK-MB (CK-2) 6.6 ng/mL (0.0-4.0) H 04/16/19 05:55 CK-MB (CK-2) Rel Index 2.1 (0-4) 04/16/19 05:55 Troponin T 0.042 ng/mL (0.00-0.029) H D 04/16/19 05:55 Total Protein 6.4 g/dL (6.3-8.2) 04/15/19 19:10 Albumin 3.1 g/dL (3.9-5) L 04/15/19 19:10 Albumin/Globulin Ratio 0.9 % 04/15/19 19:10 Triglycerides 207 mg/dL (2-149) H 04/15/19 19:10 Cholesterol 122 mg/dL (50-199) 04/15/19 19:10 LDL Cholesterol Direct 53 mg/dL (50-130) 04/15/19 19:10 HDL Cholesterol 31 mg/dL (40-59) L 04/15/19 19:10 Cholesterol/HDL Ratio 3.93 % 04/15/19 19:10 Urine Color [place] (Yellow) 04/15/19 20:22 Urine Turbidity Cloudy (Clear) 04/15/19 20:22 Urine pH 5.0 (5.0-7.0) 04/15/19 20:22 Ur Specific [place] 1.017 (1.003-1.030) 04/15/19 20:22 Urine Protein 30 mg/dl mg/dL (Negative) 04/15/19 20:22 Urine Glucose (UA) Neg mg/dL (Negative) 04/15/19 20: Urine Ketones Neg mg/dL (Negative) 04/15/19 20: Urine Blood Neg (Negative) 04/15/19 20:22 Urine Nitrite Neg (Negative) 04/15/19 20:22 Urine Bilirubin Neg (Negative) 04/15/19: Urine Urobilinogen < 2.0 mg/dL (<2.0) 04/15/19 20:22 Ur Leukocyte Esterase Lg (Negative) 04/15/19 20: Urine WBC (Auto) 165.0 /HPF (0.0-6.0) H 04/15/19: Urine RBC (Auto) 27.0 /HPF (0.0-6.0) 04/15/19 20: U Epithel Cells (Auto) < 1.0 /HPF (0-13.0) 04/15/19: Urine Bacteria (Auto) 1+ /HPF (Negative) 04/15/19: Urine Mucus Few /HPF 04/15/19 20:22 Salicylates < 0.3 mg/dL (2.8-20.0) L 04/15/19 19:10 Urine Opiates Screen Presumptive negative 04/15/19 20: Urine Methadone Screen Presumptive negative 04/15/19 20:22 Acetaminophen < 5.0 ug/mL (10.0-30.0) L 04/15/19 19:10 Ur Barbiturates Screen Presumptive negative 04/15/19 20:22 Ur Phencyclidine Scrn Presumptive negative 04/15/19 20:22 Ur Amphetamines Screen Presumptive negative 04/15/19 20:22 U Benzodiazepines Scrn Presumptive negative 04/15/19 20:22 Urine Cocaine Screen Presumptive negative 04/15/19 20:22 U Marijuana (THC) Screen Presumptive negative 04/15/19 20:22 Drugs of Abuse Note Disclamer 04/15/19: Plasma/Serum Alcohol < 0.01 % (0-0.07) 04/15/19 19:10 Active Medications - Current Medications Current Medications: Generic Name Dose Route Start Last Admin Trade Name Freq PRN Reason Stop Dose Admin Acetaminophen 650 mg 04/15/19 22:16 Tylenol PO Q4H PRN Pain MILD(1-3)/Fever >100.5/CASTANEDA Atorvastatin Calcium 40 mg 04/16/19 22:00 04/18/19 23:03 Lipitor PO 40 mg QHS SELENA Administration Baclofen 10 mg 04/16/19 22:00 04/18/19 23:03 Lioresal PO 10 mg BID SELENA Administration Colchicine 0.6 mg 04/16/19 22:00 04/18/19 23:03 Colchicine PO 0.6 mg BID SELENA Administration Duloxetine HCl 30 mg 04/17/19 10:00 04/18/19 10:39 Cymbalta PO 30 mg QDAY SELENA Administration Enoxaparin Sodium 40 mg 04/16/19 10:00 04/18/19 10:39 Enoxaparin SUB-Q 40 mg QDAY@1000 SELENA Administration Gabapentin 500 mg 04/16/19 14:00 04/18/19 23:04 Gabapentin PO 500 mg TID SELENA Administration Haloperidol Lactate 5 mg 04/16/19 13:41 04/16/19 16:00 Haldol IM 5 mg Q6H PRN Administration Agitation Ceftriaxone Sodium 1 gm in 50 mls @ 100 mls/hr 04/16/19 10:00 04/18/19 10:39 Rocephin/Ns 1 Gm/50 Ml IV 100 mls/hr Q24HR SELENA Administration Protocol Sodium Chloride 1,000 mls @ 100 mls/hr 04/16/19 17:00 04/18/19 10:44 Nacl 0.45% 1000 Ml IV 100 mls/hr DIRECT SELENA Administration Magnesium Hydroxide 30 ml 04/16/19 13:42 Milk Of Magnesia PO Q4H PRN Constipation Melatonin 5 mg 04/18/19 11:45 Melatonin PO PRN PRN Insomnia Ondansetron HCl 4 mg 04/15/19 22:16 Zofran IV Q8H PRN Nausea And Vomiting Sodium Chloride 10 ml 04/16/19 10:00 04/18/19 23:04 Sodium Chloride Flush Syringe 10 Ml IV 10 ml BID SELENA Administration Sodium Chloride 10 ml 04/15/19 22:16 Sodium Chloride Flush Syringe 10 Ml IV PRN PRN LINE FLUSH Tamsulosin HCl 0.4 mg 04/16/19 22:00 04/18/19 23:03 Flomax PO 0.4 mg QHS SELENA Administration Trazodone HCl 25 mg 04/18/19 22:00 04/18/19 23:03 Desyrel PO 25 mg BID SELENA Administration Nutrition/Malnutrition Assess - Dietary Evaluation Nutrition/Malnutrition Findings: Nutrition Notes Start: 04/16/19 12:42 Freq: Status: Active Protocol: Document 04/16/19 12:42 CC (Rec: 04/16/19 13:00 CC [email or web address]) Co-Sign 04/16/19 12:42 LP Nutrition Notes Need for 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 Pt is non verbal, unable to assess at this time. Observed moderate fat wasting in legs. Burn Absent Trauma Absent Minimum of two criteria No Body Fat Depletion Moderate depletion (severe) #1 Nutrition Diagnosis Predicted suboptimal energy intake Etiology AMS As Evidenced by Signs and Symptoms No diet ordered, no nutrition hx available Is patient on ventilator? No Is Patient Ambulatory and/or Out of Bed No REE-([facility]-confined to bed) 1751.100 Calculation Used for Recommendations [facility] Additional Notes Protein: 50-64g/day (0.8-1.0g/ kg) Fluid: 1ml/kcal Nutrition Intervention Change Diet Order: cardiac diet when medically feasible Goal #1 Meet at least 75% of energy and protein needs when diet advanced Anticipated Discharge Needs: cardiac diet Follow-Up By: 04/20/19 Additional Comments F/U for diet ordered, ONS need , PO intakes
[2019-04-19] MEDS: DULoxetine 30 MG CAP PO SCH (10:18)
[2019-04-19] MEDS: ENOXAPARIN 40 MG/0.4 ML INJ SUB-Q SCH (10:18)
[2019-04-19] MEDS: traZODone 50 MG TAB PO SCH ×2 (10:19→21:39)
[2019-04-19] MEDS: BACLOFEN 10 MG TAB PO SCH ×2 (10:19→21:39)
[2019-04-19] MEDS: COLCHICINE 0.6 MG CAP PO SCH ×2 (10:19→21:39)
[2019-04-19] MEDS: cefTRIAXone/NS 1 GM/50 ML 1 GM/50 ML BAG IV SCH (10:25)
[2019-04-19] MEDS: GABAPENTIN 500 MG/10 ML ORAL LIQD PO SCH ×3 (10:31→20:38)
--- NOTE | 2019-04-19 11:05 | Progress Note ---
Subjective - Reason for Consult Consult date: 04/19/19 Reason for consult: psychiatric assessment - Chief Complaint Chief complaint: The patient's medical record was reviewed and the patient's progress was discussed with the nursing staff. The nurse note states. patient received confused with soft wrist restraint to the left and a condom catheter draining clean yellow urine. patient has IV fluids infusing. safety precautions. Will continue to monitor During my interview with the patient this morning the patient is in bed with eyes closed easily aroused alert oriented x2. The patient was much more alert this morning able to say yes or no to some questions. patient has hx of right cva so his speech is delayed . When asked about suicidal and homicidal ideation patient said no, when asked about seeing or hearing things the patient said no, when asked about eating or sleeping patient said I am sleeping. He denies auditory or visual hallucinations. ROS: Constitutional: Negative for weight loss ENT: Negative for stridor Respiratory: Negative for cough or hemoptysis All other systems reviewed and are negative MENTAL STATUS General Appearance and Behavior: age appropriate, intermittent eye contact, cooperative with questioning and polite Cooperation: Cooperative Psychomotor Behavior: within normal limits Mood: ok Affect and affective range: Congruent with stated mood Thought Content: Goal-directed Speech: mumbles one word Suicidal Ideation: Denies SI Homicidal Ideation: Denies HI Impulse Control: intact Insight and Judgment: fair Memory: forgetful Attention: Normal Orientation: alert and orientedx2 RECOMMENDATIONS MEDICATIONS: Risks, benefits and alternatives of medications discussed with the patient, questions answered and consent obtained from patient. PSYCHOTHERAPY: Supportive psychotherapy provided MEDICAL: Per primary team DELIRIUM PRECAUTIONS: Please re-orient patient frequently, keep lights on during the day, and minimize benzodiazepines and opiates as these medications could worsen patient's confusion. 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
[2019-04-19] MEDS: TAMSULOSIN 0.4 MG CAP PO SCH (21:39)
[2019-04-20] MEDS: SODIUM CHLORIDE 0.45% 1000 ML 1,000 ML IV SCH (02:29)
[2019-04-20] MEDS: BACLOFEN 10 MG TAB PO SCH ×2 (09:34→21:28)
[2019-04-20] MEDS: ENOXAPARIN 40 MG/0.4 ML INJ SUB-Q SCH (09:34)
[2019-04-20] MEDS: traZODone 50 MG TAB PO SCH ×2 (09:34→21:28)
[2019-04-20] MEDS: DULoxetine 30 MG CAP PO SCH (09:34)
[2019-04-20] MEDS: COLCHICINE 0.6 MG CAP PO SCH (09:34)
[2019-04-20] MEDS: GABAPENTIN 500 MG/10 ML ORAL LIQD PO SCH ×3 (09:37→21:30)
[2019-04-20] MEDS: cefTRIAXone/NS 1 GM/50 ML 1 GM/50 ML BAG IV SCH (09:38)
--- NOTE | 2019-04-20 09:47 | Discharge Summary ---
Providers - Providers Date of Admission: 04/15/19 22:16 Date of discharge: 04/20/19 Attending physician: NIEVES BENITES 04/16/19 09:27 Consult to Physician [CONS] Routine Comment: Consulting Provider: STEPHANIE BROWN Physician Instructions: Reason For Exam: altered mental status 04/16/19 12:07 Consult to Mental Health [CONS] Routine Reason For Exam: Altered mental,history of depression and psychosis 04/16/19 14:39 Physical Therapy Evaluation and Treat [CONS] Routine Comment: Reason For Exam: History of stroke with right-sided paresis Speech Therapy Evaluation and Treat [CONS] Routine Reason For Exam: History of stroke with dysarthria 04/16/19 21:23 Consult to Wound/ET Nurse [CONS] Routine Reason For Exam: wound eval Primary care physician: LEAD GENERATION SPECIALIST Hospitalization Condition: Fair Disposition: DC/[place]-03 SNF W [facility] CERT Core Measure Documentation - Palliative Care Palliative Care/ Comfort Measures: Not Applicable - Core Measures Any of the following diagnoses?: none Exam - Constitutional Vitals: Temp Pulse Resp BP Pulse Ox 98.0 F 88 18 144/89 98 04/20/19 03:53 04/19/19 23:03 04/20/19 03:53 04/20/19 03:53 04/19/19 23:03 Plan Activity: advance as tolerated Diet: other (Pureed diet) Plan of Treatment: 1.Follow up with Physician at [facility] in 3-5 days Follow up with: PRIMARY CARE, [Primary Care Provider] - 7 Days Prescriptions: cefUROXime [Ceftin] 500 mg PO Q12H 2 Days #8 tablet
--- NOTE | 2019-04-20 12:58 | Progress Note ---
Subjective - Reason for Consult Consult date: 04/20/19 Reason for consult: psychiatric assessment - Chief Complaint Chief complaint: The patient's medical record was reviewed and the patient's progress was discussed with the nursing staff. The nurse note states. patient received confused with soft wrist restraint to the left and a condom catheter draining clean yellow urine. patient has IV fluids infusing. safety precautions. Will continue to monitor During my interview with the patient this morning the patient is in bed with eyes closed easily aroused alert oriented x2. The patient was much more alert this morning responding to all questions clearly. patient has hx of right cva so his speech is delayed . When asked about suicidal and homicidal ideation patient said no, when asked about seeing or hearing things the patient said no, when asked about eating or sleeping patient said I am sleeping. He denies auditory or visual hallucinations. ROS: Constitutional: Negative for weight loss ENT: Negative for stridor Respiratory: Negative for cough or hemoptysis All other systems reviewed and are negative MENTAL STATUS General Appearance and Behavior: age appropriate, intermittent eye contact, cooperative with questioning and polite Cooperation: Cooperative Psychomotor Behavior: within normal limits Mood: ok Affect and affective range: Congruent with stated mood Thought Content: Goal-directed Speech: mumbles one word Suicidal Ideation: Denies SI Homicidal Ideation: Denies HI Impulse Control: intact Insight and Judgment: fair Memory: forgetful Attention: Normal Orientation: alert and orientedx2 RECOMMENDATIONS MEDICATIONS: Risks, benefits and alternatives of medications discussed with the patient, questions answered and consent obtained from patient. PSYCHOTHERAPY: Supportive psychotherapy provided MEDICAL: Per primary team DELIRIUM PRECAUTIONS: Please re-orient patient frequently, keep lights on during the day, and minimize benzodiazepines and opiates as these medications could worsen patient's confusion. RN IMCU: DISPOSITION: Per primary team; no indication for acute inpatient psychiatric hospitalization at this time, LEGAL STATUS: FOLLOW-UP: sign off Mental Status Exam - Vital signs Last Vital Signs Temp 98.0 F 04/20/19 03:53 Pulse 72 04/20/19 10:00 Resp 18 04/20/19 03:53 BP 144/89 04/20/19 03:53 Pulse Ox 98 04/19/19 23:03
--- NOTE | 2019-04-20 14:30 | Progress Note ---
Assessment and Plan Assessment and plan: Acute kidney injury due to vasomotor nephropathy Improving Continue IV fluids Acute metabolic Encephalopathy Improving Neurology consulted, was following I discussed with Dr. Fermin psych consulted Dehydration Present on admission Urinary tract infection Continue IV Ceftriaxone Abnormal cardiac enzymes Patient had a stress test last admission, March 28 which was negative Continue to monitor, cardiac enzymes have been trending down Hypertension Continue appropriate outpatient medications Depression consult Psych COPD Hypernatremia. Improved 04/18/19: improving mental status. I discussed with mother at bedside 04/19/19. Agitated today. Cr improved. Likely dc to SNF tomorrow 04/20/19. Patient was to be discharged , but Nurse stated patient has diarrhea 3 X today. Stop colchicine, start Imodium, hold discharge. For discharge tomorrow if diarrhea resolved. Discontinue Ceftriaxone. History Interval history: Altered mental status, improved, back to baseline Diarrhea Hospitalist Physical - Physical exam Narrative exam: GEN: Not in acute distress, lying in bed, HEENT: Normocephalic, atraumatic, Neck: supple, No JVD Lungs: Clear to auscultation bilat, no wheeze, heart;S1 and S2 reg, no murmurs, rubs or gallop Abd:soft, Non tender, non distended, normal bowel sounds Ext: No edema, no clubbing, no cyanosis Neuro: Awake, confused, agitated, residual right sided weakness, moves left upper and lower ext, follows commands - Constitutional Vitals: Temp Pulse Resp BP Pulse Ox 98.0 F 72 18 144/89 98 04/20/19 03:53 04/20/19 10:00 04/20/19 03:53 04/20/19 03:53 04/19/19 23:03 Results - Labs CBC & Chem 7: 04/19/19 04:47 04/19/19 04:47 Labs: Laboratory Last Values WBC 7.5 K/mm3 (4.5-11.0) 04/19/19 04:47 RBC 4.07 M/mm3 (3.65-5.03) 04/19/19 04:47 Hgb 11.7 gm/dl (11.8-15.2) L 04/19/19 04:47 Hct 34.5 % (35.5-45.6) L 04/19/19 04:47 MCV 85 fl (84-94) 04/19/19 04:47 MCH 29 pg (28-32) 04/19/19 04:47 MCHC 34 % (32-34) 04/19/19 04:47 RDW 15.6 % (13.2-15.2) H 04/19/19 04:47 Plt Count 170 K/mm3 (140-440) 04/19/19 04:47 Lymph % (Auto) 22.1 % (13.4-35.0) 04/16/19 05:55 Cameron % (Auto) 8.6 % (0.0-7.3) H 04/16/19 05:55 Eos % (Auto) 1.9 % (0.0-4.3) 04/16/19 05:55 Baso % (Auto) 0.6 % (0.0-1.8) 04/16/19 05:55 Lymph # 1.7 K/mm3 (1.2-5.4) 04/16/19 05:55 Cameron # 0.7 K/mm3 (0.0-0.8) 04/16/19 05:55 Eos # 0.1 K/mm3 (0.0-0.4) 04/16/19 05:55 Baso # 0.0 K/mm3 (0.0-0.1) 04/16/19 05:55 Seg Neutrophils % 66.8 % (40.0-70.0) 04/16/19 05:55 Seg Neutrophils # 5.2 K/mm3 (1.8-7.7) 04/16/19 05:55 Sodium 144 mmol/L (137-145) 04/19/19 04:47 Potassium 3.5 mmol/L (3.6-5.0) L 04/19/19 04:47 Chloride 110.3 mmol/L (98-107) H 04/19/19 04:47 Carbon Dioxide 19 mmol/L (22-30) L 04/19/19 04:47 Anion Gap 18 mmol/L 04/19/19 04:47 BUN 9 mg/dL (9-20) 04/19/19 04:47 Creatinine 0.5 mg/dL (0.8-1.5) L 04/19/19 04:47 Estimated GFR > 60 ml/min 04/19/19 04:47 BUN/Creatinine Ratio 18 % 04/19/19 04:47 Glucose 76 mg/dL (75-100) 04/19/19 04:47 POC Glucose 104 (70-105) 04/20/19 12:02 Lactic Acid 1.00 mmol/L (0.7-2.0) 04/15/19 23:27 Calcium 8.1 mg/dL (8.4-10.2) L 04/19/19 04:47 Total Bilirubin 0.40 mg/dL (0.1-1.2) 04/15/19 19:10 AST 25 units/L (5-40) 04/15/19 19:10 ALT 13 units/L (7-56) 04/15/19 19:10 Alkaline Phosphatase 61 units/L (35-129) 04/15/19 19:10 Ammonia 27.0 umol/L (25-60) 04/15/19 19:10 Total Creatine Kinase 310 units/L (55-170) H 04/16/19 05:55 CK-MB (CK-2) 6.6 ng/mL (0.0-4.0) H 04/16/19 05:55 CK-MB (CK-2) Rel Index 2.1 (0-4) 04/16/19 05:55 Troponin T 0.042 ng/mL (0.00-0.029) H D 04/16/19 05:55 Total Protein 6.4 g/dL (6.3-8.2) 04/15/19 19:10 Albumin 3.1 g/dL (3.9-5) L 04/15/19 19:10 Albumin/Globulin Ratio 0.9 % 04/15/19 19:10 Triglycerides 207 mg/dL (2-149) H 04/15/19 19:10 Cholesterol 122 mg/dL (50-199) 04/15/19 19:10 LDL Cholesterol Direct 53 mg/dL (50-130) 04/15/19 19:10 HDL Cholesterol 31 mg/dL (40-59) L 04/15/19 19:10 Cholesterol/HDL Ratio 3.93 % 04/15/19 19:10 Urine Color Holley (Yellow) 04/15/19 20:22 Urine Turbidity Cloudy (Clear) 04/15/19 20:22 Urine pH 5.0 (5.0-7.0) 04/15/19 20: Ur Specific Ostrander 1.017 (1.003-1.030) 04/15/19 20: Urine Protein 30 mg/dl mg/dL (Negative) 04/15/19 20: Urine Glucose (UA) Neg mg/dL (Negative) 04/15/19 20: Urine Ketones Neg mg/dL (Negative) 04/15/19 20: Urine Blood Neg (Negative) 04/15/19: Urine Nitrite Neg (Negative) 04/15/19: Urine Bilirubin Neg (Negative) 04/15/19: Urine Urobilinogen < 2.0 mg/dL (<2.0) 04/15/19: Ur Leukocyte Esterase Lg (Negative) 04/15/19 Urine WBC (Auto) 165.0 /HPF (0.0-6.0) H 04/15/19: Urine RBC (Auto) 27.0 /HPF (0.0-6.0) 04/15/19: U Epithel Cells (Auto) < 1.0 /HPF (0-13.0) 04/15/19: Urine Bacteria (Auto) 1+ /HPF (Negative) 04/15/19: Urine Mucus Few /HPF 04/15/19: Salicylates < 0.3 mg/dL (2.8-20.0) L 04/15/19 19:10 Urine Opiates Screen Presumptive negative 04/15/19 20: Urine Methadone Screen Presumptive negative 04/15/19: Acetaminophen < 5.0 ug/mL (10.0-30.0) L 04/15/19 19:10 Ur Barbiturates Screen Presumptive negative 04/15/19 20: Ur Phencyclidine Scrn Presumptive negative 04/15/19 20:22 Ur Amphetamines Screen Presumptive negative 04/15/19 20: U Benzodiazepines Scrn Presumptive negative 04/15/19: Urine Cocaine Screen Presumptive negative 04/15/19 20:22 U Marijuana (THC) Screen Presumptive negative 04/15/19 20:22 Drugs of Abuse Note Disclamer 04/15/19: Plasma/Serum Alcohol < 0.01 % (0-0.07) 04/15/19 19:10 Active Medications - Current Medications Current Medications: Generic Name Dose Route Start Last Admin Trade Name Freq PRN Reason Stop Dose Admin Acetaminophen 650 mg 04/15/19 22:16 Tylenol PO Q4H PRN Pain MILD(1-3)/Fever >100.5/CASTANEDA Atorvastatin Calcium 40 mg 04/16/19 22:00 04/19/19 21:39 Lipitor PO 40 mg QHS SELENA Administration Baclofen 10 mg 04/16/19 22:00 04/20/19 09:34 Lioresal PO 10 mg BID SELENA Administration Colchicine 0.6 mg 04/16/19 22:00 04/20/19 09:34 Colchicine PO 0.6 mg BID SELENA Administration Divalproex Sodium 125 mg 04/20/19 10:[address] PO Q12HR SELENA Duloxetine HCl 30 mg 04/17/19 10:00 04/20/19 09:34 Cymbalta PO 30 mg QDAY SELENA Administration Enoxaparin Sodium 40 mg 04/16/19 10:00 04/20/19 09:34 Enoxaparin SUB-Q 40 mg QDAY@1000 SELENA Administration Gabapentin 500 mg 04/16/19 14:00 04/20/19 09:37 Gabapentin PO 500 mg TID SELENA Administration Haloperidol Lactate 5 mg 04/16/19 13:41 04/16/19 16:00 Haldol IM 5 mg Q6H PRN Administration Agitation Sodium Chloride 1,000 mls @ 100 mls/hr 04/16/19 17:00 04/20/19 02:29 Nacl 0.45% 1000 Ml IV 100 mls/hr DIRECT SELENA Administration Loperamide HCl 2 mg 04/20/19 14:29 Imodium PO Q2H PRN Diarrhea Magnesium Hydroxide 30 ml 04/16/19 13:42 Milk Of Magnesia PO Q4H PRN Constipation Melatonin 5 mg 04/18/19 11:45 Melatonin PO PRN PRN Insomnia Ondansetron HCl 4 mg 04/15/19 22:16 Zofran IV Q8H PRN Nausea And Vomiting Sodium Chloride 10 ml 04/16/19 10:00 04/20/19 10:06 Sodium Chloride Flush Syringe 10 Ml IV 10 ml BID SELENA Administration Sodium Chloride 10 ml 04/15/19 22:16 Sodium Chloride Flush Syringe 10 Ml IV PRN PRN LINE FLUSH Tamsulosin HCl 0.4 mg 04/16/19 22:00 04/19/19 21:39 Flomax PO 0.4 mg QHS SELENA Administration Trazodone HCl 25 mg 04/18/19 22:00 04/20/19 09:34 Desyrel PO 25 mg BID SELENA Administration Nutrition/Malnutrition Assess - Dietary Evaluation Nutrition/Malnutrition Findings: Nutrition Notes Start: 04/16/19 12:42 Freq: Status: Active Protocol: Document 04/16/19 12:42 CC (Rec: 04/16/19 13:00 CC [email or web address]) Co-Sign 04/16/19 12:42 LP Nutrition Notes 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 Pt is non verbal, unable to assess at this time. Observed moderate fat wasting in legs. Burn Absent Trauma Absent Minimum of two criteria No Body Fat Depletion Moderate depletion (severe) #1 Nutrition Diagnosis Predicted suboptimal energy intake Etiology AMS As Evidenced by Signs and Symptoms No diet ordered, no nutrition hx available Is patient on ventilator? No Is Patient Ambulatory and/or Out of Bed No REE-([facility]-confined to bed) 1751.100 Calculation Used for Recommendations [facility] Additional Notes Protein: 50-64g/day (0.8-1.0g/ kg) Fluid: 1ml/kcal Nutrition Intervention Change Diet Order: cardiac diet when medically feasible Goal #1 Meet at least 75% of energy and protein needs when diet advanced Anticipated Discharge Needs: cardiac diet Follow-Up By: 04/20/19 Additional Comments F/U for diet ordered, ONS need , PO intakes
[2019-04-20] MEDS: LOPERAMIDE 2 MG CAP PO PRN ×2 (16:14→21:29)
[2019-04-20] MEDS: DIVALPROEX DR 125 MG TAB PO SCH ×2 (16:23→21:28)
[2019-04-20] MEDS: TAMSULOSIN 0.4 MG CAP PO SCH (21:30)
[2019-04-21] MEDS: GABAPENTIN 500 MG/10 ML ORAL LIQD PO SCH (11:02)
[2019-04-21] MEDS: ENOXAPARIN 40 MG/0.4 ML INJ SUB-Q SCH (11:03)
[2019-04-21] MEDS: traZODone 50 MG TAB PO SCH (11:03)
[2019-04-21] MEDS: BACLOFEN 10 MG TAB PO SCH (11:03)
[2019-04-21] MEDS: DULoxetine 30 MG CAP PO SCH (11:03)
[2019-04-21] MEDS: DIVALPROEX DR 125 MG TAB PO SCH (11:03)
--- NOTE | 2019-04-21 13:58 | Progress Note ---
Subjective - Reason for Consult Consult date: 04/21/19 Reason for consult: altered mental status - Chief Complaint Chief complaint: During my interview with the patient this morning the patient is in bed with eyes closed easily aroused alert oriented x 3. The patient's speech is somewhat garbled, and he's slow to respond from a past CVA. He is dressed appropriately. His mother is at bedside. The patient denies SI/HI. He also denies hallucinations of any kind. His mother states about "two days ago he had an episode where he told me i was going to get killed." She says but "those are episodes he has from time to time." The patient replies, "it was just an episode but I don't think that." He says his mood is "pretty good, just in pain." He says he "slept well." ROS: Constitutional: Negative for weight loss ENT: Negative for stridor Respiratory: Negative for cough or hemoptysis All other systems reviewed and are negative MENTAL STATUS General Appearance and Behavior: age appropriate, fair eye contact, dressed appropriately Cooperation: Cooperative Mood: "pretty good" Affect and affective range: Congruent with stated mood Thought Content: Goal-directed Speech: Garbled at times Suicidal Ideation: Denies SI Homicidal Ideation: Denies HI Delustions: Denies Hallucinations: Denies Insight and Judgment: Limited Memory/Cognition: Limited RECOMMENDATIONS MEDICATIONS: Continue previously ordered medications Risks, benefits and alternatives of medications discussed with the patient, questions answered and consent obtained from patient. PSYCHOTHERAPY: Supportive psychotherapy provided MEDICAL: Per primary team DELIRIUM PRECAUTIONS: Please re-orient patient frequently, keep lights on during the day, and minimize benzodiazepines and opiates as these medications could worsen patient's confusion. TRANSMITTER ENGINEER: defer to primary DISPOSITION: no indication for acute inpatient psychiatric hospitalization at this time. The patient may discharge home once medically cleared. LEGAL STATUS: Voluntary Will sign off. Please call with any questions or concerns. Thank you for this consult. Mental Status Exam - Vital signs Last Vital Signs Temp 98.3 F 04/21/19 07:17 Pulse 105 H 04/21/19 10:00 Resp 20 04/21/19 10:00 BP 127/90 04/21/19 07:17 Pulse Ox 94 04/21/19 10:00
--- NOTE | 2019-04-21 16:15 | Discharge Summary ---
Providers - Providers Date of Admission: 04/15/19 22:16 Date of discharge: 04/21/19 Attending physician: HALLE THOMPSON 04/16/19 09:27 Consult to Physician [CONS] Routine Comment: Consulting Provider: STEPHANIE BROWN Physician Instructions: Reason For Exam: altered mental status 04/16/19 12:07 Consult to Mental Health [CONS] Routine Reason For Exam: Altered mental,history of depression and psychosis 04/16/19 14:39 Physical Therapy Evaluation and Treat [CONS] Routine Comment: Reason For Exam: History of stroke with right-sided paresis Speech Therapy Evaluation and Treat [CONS] Routine Reason For Exam: History of stroke with dysarthria 04/16/19 21:23 Consult to Wound/ET Nurse [CONS] Routine Reason For Exam: wound eval Primary care physician: FABRICATION SUPERVISOR Hospitalization Condition: Fair Hospital course: Patient presented with dehydration acute metabolic encephalopathy which resolved. Patient had dehydration which also resolved with IV fluid. Discharge and hospital course was complicated by diarrhea x3 which resolved. Patient given Imodium control patient's diarrhea. Stable [facility] Disposition: [id number]/[place]-[facility] SNF [facility] CERT - Discharge Diagnoses (1) AJAY (acute kidney injury) Status: Resolved Comment: Vasomotor nephropathy. (2) Altered mental status Status: Acute Qualifiers: Altered mental status type: unspecified Qualified Code(s): R41.82 - Altered mental status, unspecified Comment: Secondary to UTI dehydration vasomotor nephropathy resolved back at baseline. Stable for discharge. (3) Dehydration Status: Resolved (4) Encephalopathy acute Status: Acute (5) UTI (urinary tract infection) Status: Acute Qualifiers: Urinary tract infection type: acute cystitis Hematuria presence: with hematuria Qualified Code(s): N30.01 - Acute cystitis with hematuria Core Measure Documentation - Palliative Care Palliative Care/ Comfort Measures: Not Applicable - Core Measures Any of the following diagnoses?: none Exam - Constitutional Vitals: Temp Pulse Resp BP Pulse Ox 98.3 F 105 H 20 127/90 94 04/21/19 07:17 04/21/19 10:00 04/21/19 10:00 04/21/19 07:17 04/21/19 10:00 General appearance: Present: no acute distress, well-nourished - EENT Eyes: Present: PERRL ENT: hearing intact, clear oral mucosa - Neck Neck: Present: supple, normal ROM - Respiratory Respiratory effort: normal Respiratory: bilateral: CTA - Cardiovascular Heart Sounds: Present: S1 & S2. Absent: rub, click - Extremities Extremities: pulses symmetrical, No edema Peripheral Pulses: within normal limits - Abdominal General gastrointestinal: Present: soft, non-tender, non-distended, normal bowel sounds Male genitourinary: Present: normal - Rectal Rectal Exam: other (Small excoriation. Local wound treatment.) - Integumentary Integumentary: Present: clear, warm, dry - Musculoskeletal Musculoskeletal: generalized weakness - Psychiatric Psychiatric: appropriate mood/affect, intact judgment & insight - Neurologic Neurologic: CNII-XII intact, moves all extremities, other (Poor cognition) Plan Activity: fall precautions Weight Bearing Status: Touch Down Weight Bearing Plan of Treatment: 1.Follow up with Physician at SNF in 3-5 days Follow up with: PRIMARY CARE, [Primary Care Provider] - 7 Days Prescriptions: cefUROXime [Ceftin] 500 mg PO Q12H 2 Days #8 tablet
[2019-04-21 20:49] VITALS: BP 110/87
== END 2019-04-21 22:00 | DRG 70 ==
LOC: ED 17:46 → 4A 22:16
PROVIDERS: ADMIT Internal Medicine; ATTEND Internal Medicine
DX: G93.41 Metabolic encephalopathy (principal); N17.0 Acute kidney failure with tubular necrosis; I10 Essential (primary) hypertension; F32.9 Major depressive disorder, single episode, unspecified; E86.0 Dehydration; N30.01 Acute cystitis with hematuria; I95.9 Hypotension, unspecified; J44.9 Chronic obstructive pulmonary disease, unspecified; E87.0 Hyperosmolality and hypernatremia; M10.9 Gout, unspecified; Z79.899 Other long term (current) drug therapy; Z79.82 Long term (current) use of aspirin; I69.351 Hemiplegia and hemiparesis following cerebral infarction affecting right dominant side
CPT/HCPCS: 36415; 70450; 71045; 76770; 80048; 80053; 80061; 80307; 80320; 81001; 82140; 82550; 82553; 82962; 84484; 85025; 85027; 87040; 87086; 93005; 93010; 96372; 96374; 96375; G0378; A9270-GY; G0480; J0692; J0696; J1630; J1650; J2405; J3370; J7030; J7050

== ENCOUNTER 2019-12-22 12:11 | Observation (INO) | payer MEDICAID, OTHER ==
[2019-12-22 13:02] LABS: Basophils % (Auto) 0.7 % (0.0-1.8); Eosinophils # (Auto) 0.2 K/mm3 (0.0-0.4); Eosinophils % (Auto) 4.3 % (0.0-4.3); Hematocrit 39.6 % (35.5-45.6); Hemoglobin 13.3 gm/dl (11.8-15.2); Lymphocytes # (Auto) 1.7 K/mm3 (1.2-5.4); Lymphocytes % (Auto) 36.4 % (13.4-35.0); Mean Corpuscular HGB Conc 34 % (32-34); Mean Corpuscular Volume 89 fl (84-94); Monocytes # (Auto) 0.3 K/mm3 (0.0-0.8); Monocytes % (Auto) 6.3 % (0.0-7.3); Platelet Count 123 K/mm3 (140-440); Red Blood Count 4.46 M/mm3 (3.65-5.03); Red Cell Distribution Width 14.2 % (13.2-15.2)
[2019-12-22 13:10] LABS: Blood Urea Nitrogen 20 mg/dL (9-20); Calcium 9.4 mg/dL (8.4-10.2); Hemolysis Index 6
[2019-12-22] MEDS ORDERED: ONDANSETRON 4 MG/2 ML INJ IV ONE (13:10)
[2019-12-22] MEDS ORDERED: MORPHINE 4 MG/1 ML INJ IV ONE ×2 (13:10→16:20)
[2019-12-22 13:11] LABS: BUN/Creatinine Ratio 29
[2019-12-22 13:27] LABS: Bacteria,Urine 1+ /HPF (Negative); Bilirubin,Urine NEG (Negative); Blood,Urine NEG (Negative); Calcium Oxalate Crystals,Urine FEW; Color,Urine Yellow (Yellow); Mucus,Urine 1+ /HPF; Protein,Urine <15 mg/dL mg/dL (Negative); Urobilinogen,Urine < 2.0 mg/dL (<2.0)
[2019-12-22 13:43] LABS: INR 0.99 (0.87-1.13)
[2019-12-22 13:44] LABS: Partial Thromboplastin Time 30.9 Sec. (24.2-36.6)
[2019-12-22 14:07] LABS: Basophils % (Auto) 0.6 % (0.0-1.8); Eosinophils # (Auto) 0.2 K/mm3 (0.0-0.4); Lymphocytes # (Auto) 1.6 K/mm3 (1.2-5.4); Lymphocytes % (Auto) 35.5 % (13.4-35.0); Monocytes # (Auto) 0.3 K/mm3 (0.0-0.8); Monocytes % (Auto) 6.6 % (0.0-7.3)
[2019-12-22 14:08] LABS: Hematocrit 40.7 % (35.5-45.6); Hemoglobin 13.8 gm/dl (11.8-15.2); Mean Corpuscular HGB Conc 34 % (32-34); Mean Corpuscular Volume 89 fl (84-94); Platelet Count 115 K/mm3 (140-440); Red Blood Count 4.57 M/mm3 (3.65-5.03); Red Cell Distribution Width 13.9 % (13.2-15.2)
[2019-12-22 14:27] LABS: Alanine Aminotransferase 99 units/L (7-56); Albumin 4.4 g/dL (3.9-5); BUN/Creatinine Ratio 35; Blood Urea Nitrogen 21 mg/dL (9-20); Calcium 9.7 mg/dL (8.4-10.2); Hemolysis Index 9
--- NOTE | 2019-12-22 14:35 | Cat Scan Report ---
CT head/brain wo con INDICATION: Altered Mental Status. TECHNIQUE: Routine CT head. All CT scans at this location are performed using CT dose reduction for A BASIA by means of automated exposure control. COMPARISON: 05/14/2019. FINDINGS: Intracranial: Evolution of prior seen areas of periventricular encephalomalacia which appears less co nspicuous on today's examination. There is persistent dystrophic ossification along the left lateral ventricle in the area of the encephalomalacia. Generalized atrophy. Periventricular and centrum semio prasanth white matter hypoattenuation most consistent with sequela of chronic microvascular disease. Gra y-white matter differentiation is maintained without evidence of acute infarction. No intracranial he morrhage. No extra axial collection. Prominent ventricles, most consistent with ex vacuo dilation. No hydrocephalus.. No herniation. Persistent mildly prominent retrocerebellar cystic space. Sinuses: Paranasal sinuses and mastoid air cells are essentially clear. Orbits: Globes are intact. Calvarium: No acute fracture. IMPRESSION: 1. No acute intracranial abnormality. Signer Name: Uriel Mendez MD Signed: 12/22/2019 2:31 PM Workstation Name: [id number]
[2019-12-22] MEDS ORDERED: ENALAPRILAT 2.5 MG/2 ML INJ IV ONE (16:20)
--- NOTE | 2019-12-22 17:01 | Emergency Department Report ---
ED General Adult HPI - General Chief complaint: Altered Mental Status Stated complaint: ALTERED MENTAL STATUS Time Seen by Provider: 12/22/19 12:59 Source: EMS Mode of arrival: Stretcher Limitations: Altered Mental Status, Physical Limitation - History of Present Illness Initial comments: The patient presents to the emergency department [facility] a local [facility] for altered mental status. It was also reported that the patient is very aggressive and combative with staff. Patient has a history of gastric cancer and a previous CVA. The patient does shakes his head yes and no when answer questions. Patient shakes his head yes when asked if he was in pain. -: Sudden Consistency: constant Improves with: none Worsens with: none Associated Symptoms: denies other symptoms Treatments Prior to Arrival: none - Related Data Home Medications Medication Instructions Recorded Confirmed Last Taken Baclofen [Lioresal] 10 mg PO BID 03/25/19 04/15/19 Unknown Colchicine 0.6 mg PO BID 03/25/19 04/15/[address] [Depakote Dr] 125 mg PO Q12HR 03/25/19 04/15/19 Unknown Duloxetine HCl [Drizalma Sprinkle] 30 mg PO DAILY 03/25/19 04/15/19 Unknown Gabapentin [Neurontin 250 mg/5 ml] 10 ml PO TID 03/25/19 04/15/19 Unknown HYDROcodone/APAP 5-325 [[place] 1 each PO Q4HR PRN 03/25/19 04/15/19 Unknown 5-325 mg TAB] LORazepam [Ativan] 2 mg PO Q6HR PRN 03/25/19 04/15/19 Unknown Melatonin [Melatonin 5MG CAP] 5 mg PO QHS 03/25/19 04/15/19 Unknown Tamsulosin [Flomax] 0.4 mg PO QHS 03/25/19 04/15/19 Unknown carvediloL [Coreg] 12.5 mg PO BID 03/25/19 04/15/19 Unknown Previous Rx's Medication Instructions Recorded Last Taken Type Aspirin EC [Ecotrin] 325 mg PO QDAY tablet 03/28/19 Unknown Rx AtorvaSTATin [Lipitor] 40 mg PO QHS tablet 03/28/19 Unknown Rx Magnesium Hydroxide [Milk of 30 ml PO Q4H PRN oral.liqd 03/28/19 Unknown Rx Magnesia] cefUROXime [Ceftin] 500 mg PO Q12H 2 Days #8 tablet 04/20/19 Unknown Rx Loperamide [Imodium] 2 mg PO Q2H PRN capsule 04/21/19 Unknown Rx Allergies Allergy/AdvReac Type Severity Reaction Status Date / Time No Known Allergies Allergy Verified 03/25/19 00:27 ED Review of Systems ROS: Stated complaint: ALTERED MENTAL STATUS Other details as noted in HPI Comment: Unobtainable due to pts medical conditions ED Past Medical Hx - Past Medical History Previous Medical History?: Yes Hx Hypertension: Yes Hx CVA: Yes (rt weakness) Hx Congestive Heart Failure: No Hx Diabetes: No Hx of Cancer: Yes (Stomach cancer) Hx Psychiatric Treatment: Yes (major depressive disorder, psychosis) Hx Asthma: No Hx COPD: No Hx HIV: No Additional medical history: gout, urine retention - Social History Smoking Status: Unknown if ever smoked - Medications Home Medications: Home Medications Medication Instructions Recorded Confirmed Last Taken Type Baclofen [Lioresal] 10 mg PO BID 03/25/19 04/15/19 Unknown History Colchicine 0.6 mg PO BID 03/25/19 04/15/[address] [Depakote Dr] 125 mg PO Q12HR 03/25/19 04/15/19 Unknown History Duloxetine HCl [Drizalma Sprinkle] 30 mg PO DAILY 03/25/19 04/15/19 Unknown History Gabapentin [Neurontin 250 mg/5 ml] 10 ml PO TID 03/25/19 04/15/19 Unknown History HYDROcodone/APAP 5-325 [[place] 1 each PO Q4HR PRN 03/25/19 04/15/19 Unknown History 5-325 mg TAB] LORazepam [Ativan] 2 mg PO Q6HR PRN 03/25/19 04/15/19 Unknown History Melatonin [Melatonin 5MG CAP] 5 mg PO QHS 03/25/19 04/15/19 Unknown History Tamsulosin [Flomax] 0.4 mg PO QHS 03/25/19 04/15/19 Unknown History carvediloL [Coreg] 12.5 mg PO BID 03/25/19 04/15/19 Unknown History Aspirin EC [Ecotrin] 325 mg PO QDAY tablet 03/28/19 04/15/19 Unknown Rx AtorvaSTATin [Lipitor] 40 mg PO QHS tablet 03/28/19 04/15/19 Unknown Rx Magnesium Hydroxide [Milk of 30 ml PO Q4H PRN oral.liqd 03/28/19 04/15/19 Unknown Rx Magnesia] cefUROXime [Ceftin] 500 mg PO Q12H 2 Days #8 tablet 04/20/19 Unknown Rx Loperamide [Imodium] 2 mg PO Q2H PRN capsule 04/21/19 Unknown Rx ED Physical Exam - General Limitations: Altered Mental Status, Physical Limitation General appearance: alert, cachectic - Head Head exam: Present: atraumatic, normocephalic - Eye Eye exam: Present: normal appearance - ENT ENT exam: Present: mucous membranes moist - Neck Neck exam: Present: normal inspection - Respiratory Respiratory exam: Present: normal lung sounds bilaterally. Absent: respiratory distress - Cardiovascular Cardiovascular Exam: Present: regular rate, normal rhythm. Absent: systolic murmur, diastolic murmur, rubs, gallop - GI/Abdominal GI/Abdominal exam: Present: soft, normal bowel sounds - Rectal Rectal exam: Present: deferred - Extremities Exam Extremities exam: Present: other (Contractures of the upper extremities bilaterally) - Back Exam Back exam: Present: normal inspection - Neurological Exam Neurological exam: Present: other (Not able to assess due to the patient's medical condition) - Psychiatric Psychiatric exam: Present: other (Not able to completely assess due to the patient's medical condition) - Skin Skin exam: Present: warm, dry, intact, normal color. Absent: rash ED Course Vital Signs 12/22/19 12/22/19 12/22/19 12:22 12:52 13:01 Temperature 98.1 F Pulse Rate 64 58 L Respiratory 18 18 11 L Rate Blood Pressure 169/104 Blood Pressure [Left] O2 Sat by Pulse 100 100 99 Oximetry 12/22/19 12/22/19 12/22/19 13:16 13:30 13:46 Temperature Pulse Rate 61 60 55 L Respiratory 13 11 L 12 Rate Blood Pressure 174/113 174/113 Blood Pressure [Left] O2 Sat by Pulse 100 100 98 Oximetry 12/22/19 12/22/19 12/22/19 13:59 14:00 14:12 Temperature Pulse Rate 57 L 58 L 59 L Respiratory 12 15 Rate Blood Pressure 174/113 Blood Pressure 174/113 [Left] O2 Sat by Pulse 99 100 Oximetry 1012/22/19 12/22/19 14:16 14:30 14:46 Temperature Pulse Rate 62 60 66 Respiratory 14 11 L 12 Rate Blood Pressure 174/113 205/99 205/99 Blood Pressure [Left] O2 Sat by Pulse 98 100 98 Oximetry 12/22/19 12/22/19 12/22/19 15:00 15:16 15:30 Temperature Pulse Rate 60 65 67 Respiratory 9 L 7 L 14 Rate Blood Pressure 184/111 184/111 203/121 Blood Pressure [Left] O2 Sat by Pulse 100 Oximetry 12/22/19 12/22/19 12/22/19 15:46 16:00 16:16 Temperature Pulse Rate 70 77 70 Respiratory 12 9 L 17 Rate Blood Pressure 203/121 194/116 194/116 Blood Pressure [Left] O2 Sat by Pulse Oximetry 12/22/19 12/22/19 12/22/19 16:30 16:46 17:00 Temperature Pulse Rate 69 71 66 Respiratory 13 14 12 Rate Blood Pressure 192/115 192/115 169/111 Blood Pressure [Left] O2 Sat by Pulse Oximetry 12/22/19 17:07 Temperature Pulse Rate 65 Respiratory Rate Blood Pressure 186/114 Blood Pressure [Left] O2 Sat by Pulse Oximetry ED Medical Decision Making - Lab Data Result diagrams: 12/22/19 13:42 12/22/19 13:42 Lab Results 12/22/19 12/22/19 12/22/19 Range/Units 12:31 12:31 12:52 WBC 4.6 (4.5-11.0) K/mm3 RBC 4.46 (3.65-5.03) M/mm3 Hgb 13.3 (11.8-15.2) gm/dl Hct 39.6 (35.5-45.6) % MCV 89 (84-94) fl MCH 30 (28-32) pg MCHC 34 (32-34) % RDW 14.2 (13.2-15.2) % Plt Count 123 L (140-440) K/mm3 Lymph % (Auto) 36.4 H (13.4-35.0) % [place] % (Auto) 6.3 (0.0-7.3) % Eos % (Auto) 4.3 (0.0-4.3) % Baso % (Auto) 0.7 (0.0-1.8) % Lymph # (Auto) 1.7 (1.2-5.4) K/mm3 [place] # (Auto) 0.3 (0.0-0.8) K/mm3 Eos # (Auto) 0.2 (0.0-0.4) K/mm3 Baso # (Auto) 0.0 (0.0-0.1) K/mm3 Seg Neutrophils % 52.3 (40.0-70.0) % Seg Neutrophils # 2.4 (1.8-7.7) K/mm3 PT (12.2-14.9) Sec. INR (0.87-1.13) APTT (24.2-36.6) Sec. Sodium 145 (137-145) mmol/L Potassium 4.0 (3.6-5.0) mmol/L Chloride 106.5 (98-107) mmol/L Carbon Dioxide 28 (22-30) mmol/L Anion Gap 15 mmol/L BUN 20 (9-20) mg/dL Creatinine 0.7 L (0.8-1.3) mg/dL Estimated GFR > 60 ml/min BUN/Creatinine Ratio 29 % Glucose 100 (75-100) mg/dL Lactic Acid (0.7-2.0) mmol/L Calcium 9.4 (8.4-10.2) mg/dL Total Bilirubin (0.1-1.2) mg/dL AST (5-40) units/L ALT (7-56) units/L Alkaline Phosphatase (35-129) units/L Troponin T (0.00-0.029) ng/mL Total Protein (6.3-8.2) g/dL Albumin (3.9-5) g/dL Albumin/Globulin Ratio % Urine Color Yellow (Yellow) Urine Turbidity Clear (Clear) Urine pH 8.0 H (5.0-7.0) Ur Specific [place] 1.013 (1.003-1.030) Urine Protein <15 mg/dl (Negative) mg/dL Urine Glucose (UA) 50 (Negative) mg/dL Urine Ketones Neg (Negative) mg/dL Urine Blood Neg (Negative) Urine Nitrite Neg (Negative) Urine Bilirubin Neg (Negative) Urine Urobilinogen < 2.0 (<2.0) mg/dL Ur Leukocyte Esterase Neg (Negative) Urine WBC (Auto) 5.0 (0.0-6.0) /HPF Urine RBC (Auto) 20.0 (0.0-6.0) /HPF U Epithel Cells (Auto) < 1.0 (0-13.0) /HPF Urine Bacteria (Auto) 1+ (Negative) /HPF Calcium Oxalate Crystal Few Urine Mucus 1+ /HPF 12/22/19 12/22/19 12/22/19 Range/Units 13:19 13:42 13:42 WBC 4.6 (4.5-11.0) K/mm3 RBC 4.57 (3.65-5.03) M/mm3 Hgb 13.8 (11.8-15.2) gm/dl Hct 40.7 (35.5-45.6) % MCV 89 (84-94) fl MCH 30 (28-32) pg MCHC 34 (32-34) % RDW 13.9 (13.2-15.2) % Plt Count 115 L (140-440) K/mm3 Lymph % (Auto) 35.5 H (13.4-35.0) % [place] % (Auto) 6.6 (0.0-7.3) % Eos % (Auto) 4.0 (0.0-4.3) % Baso % (Auto) 0.6 (0.0-1.8) % Lymph # (Auto) 1.6 (1.2-5.4) K/mm3 [place] # (Auto) 0.3 (0.0-0.8) K/mm3 Eos # (Auto) 0.2 (0.0-0.4) K/mm3 Baso # (Auto) 0.0 (0.0-0.1) K/mm3 Seg Neutrophils % 53.3 (40.0-70.0) % Seg Neutrophils # 2.5 (1.8-7.7) K/mm3 PT 13.3 (12.2-14.9) Sec. INR 0.99 (0.87-1.13) APTT 30.9 (24.2-36.6) Sec. Sodium (137-145) mmol/L Potassium (3.6-5.0) mmol/L Chloride (98-107) mmol/L Carbon Dioxide (22-30) mmol/L Anion Gap mmol/L BUN (9-20) mg/dL Creatinine (0.8-1.3) mg/dL Estimated GFR ml/min BUN/Creatinine Ratio % Glucose (75-100) mg/dL Lactic Acid 0.80 (0.7-2.0) mmol/L Calcium (8.4-10.2) mg/dL Total Bilirubin (0.1-1.2) mg/dL AST (5-40) units/L ALT (7-56) units/L Alkaline Phosphatase (35-129) units/L Troponin T (0.00-0.029) ng/mL Total Protein (6.3-8.2) g/dL Albumin (3.9-5) g/dL Albumin/Globulin Ratio % Urine Color (Yellow) Urine Turbidity (Clear) Urine pH (5.0-7.0) Ur Specific [place] (1.003-1.030) Urine Protein (Negative) mg/dL Urine Glucose (UA) (Negative) mg/dL Urine Ketones (Negative) mg/dL Urine Blood (Negative) Urine Nitrite (Negative) Urine Bilirubin (Negative) Urine Urobilinogen (<2.0) mg/dL Ur Leukocyte Esterase (Negative) Urine WBC (Auto) (0.0-6.0) /HPF Urine RBC (Auto) (0.0-6.0) /HPF U Epithel Cells (Auto) (0-13.0) /HPF Urine Bacteria (Auto) (Negative) /HPF Calcium Oxalate Crystal Urine Mucus /HPF 12/21/ Range/Units 13:42 WBC (4.5-11.0) K/mm3 RBC (3.65-5.03) M/mm3 Hgb (11.8-15.2) gm/dl Hct (35.5-45.6) % MCV (84-94) fl MCH (28-32) pg MCHC (32-34) % RDW (13.2-15.2) % Plt Count (140-440) K/mm3 Lymph % (Auto) (13.4-35.0) % [place] % (Auto) (0.0-7.3) % Eos % (Auto) (0.0-4.3) % Baso % (Auto) (0.0-1.8) % Lymph # (Auto) (1.2-5.4) K/mm3 [place] # (Auto) (0.0-0.8) K/mm3 Eos # (Auto) (0.0-0.4) K/mm3 Baso # (Auto) (0.0-0.1) K/mm3 Seg Neutrophils % (40.0-70.0) % Seg Neutrophils # (1.8-7.7) K/mm3 PT (12.2-14.9) Sec. INR (0.87-1.13) APTT (24.2-36.6) Sec. Sodium 147 H (137-145) mmol/L Potassium 4.2 (3.6-5.0) mmol/L Chloride 107.5 H (98-107) mmol/L Carbon Dioxide 30 (22-30) mmol/L Anion Gap 14 mmol/L BUN 21 H (9-20) mg/dL Creatinine 0.6 L (0.8-1.3) mg/dL Estimated GFR > 60 ml/min BUN/Creatinine Ratio 35 % Glucose 87 (75-100) mg/dL Lactic Acid (0.7-2.0) mmol/L Calcium 9.7 (8.4-10.2) mg/dL Total Bilirubin 0.60 (0.1-1.2) mg/dL AST 39 (5-40) units/L ALT 99 H (7-56) units/L Alkaline Phosphatase 67 (35-129) units/L Troponin T 0.016 (0.00-0.029) ng/mL Total Protein 6.6 (6.3-8.2) g/dL Albumin 4.4 (3.9-5) g/dL Albumin/Globulin Ratio 2.0 % Urine Color (Yellow) Urine Turbidity (Clear) Urine pH (5.0-7.0) Ur Specific [place] (1.003-1.030) Urine Protein (Negative) mg/dL Urine Glucose (UA) (Negative) mg/dL Urine Ketones (Negative) mg/dL Urine Blood (Negative) Urine Nitrite (Negative) Urine Bilirubin (Negative) Urine Urobilinogen (<2.0) mg/dL Ur Leukocyte Esterase (Negative) Urine WBC (Auto) (0.0-6.0) /HPF Urine RBC (Auto) (0.0-6.0) /HPF U Epithel Cells (Auto) (0-13.0) /HPF Urine Bacteria (Auto) (Negative) /HPF Calcium Oxalate Crystal Urine Mucus /HPF - EKG Data -: EKG Interpreted by Me EKG shows normal: sinus rhythm Rate: normal - Radiology Data Radiology results: report reviewed Critical care attestation.: If time is entered above; I have spent that time in minutes in the direct care of this critically ill patient, excluding procedure time. ED Disposition Clinical Impression: Altered mental status Disposition: [id number] OP ADMIT IP TO THIS HOSP Is pt being admited?: Yes Does the pt Need Aspirin: No Condition: Fair Referrals: PRIMARY CARE, [Primary Care Provider] - 3-5 Days
--- NOTE | 2019-12-22 17:38 | XRay Report ---
CHEST 1 VIEW INDICATION / CLINICAL INFORMATION: AMS. COMPARISON: 04/15/2019 FINDINGS: SUPPORT DEVICES: None. HEART / MEDIASTINUM: No significant abnormality. LUNGS / PLEURA: No significant pulmonary or pleural abnormality. No pneumothorax. ADDITIONAL FINDINGS: No significant additional findings. IMPRESSION: No acute disease or interval change from 04/15/2019 Signer Name: Jerome Gallegos MD FACR Signed: 12/22/2019 5:34 PM Workstation Name: [id number]
[2019-12-22] MEDS ORDERED: cloNIDine 0.1 MG TAB ONE (19:41)
[2019-12-22] MEDS ORDERED: cloNIDine 0.1 MG TAB PO ONE (19:43)
--- NOTE | 2019-12-22 21:41 | History and Physical Report ---
History of Present Illness Date of examination: 12/29/19 Date of admission: 12/22/19 17:23 Chief complaint: Altered mental status since a.m. History of present illness: 59-year-old male with a history of hypertension, BPH and previous CVA presents to the emergency room with altered mental status. Patient is normally aggressive and combative with staff and is on Depakote for behavior control. Patient lives in a [facility]. No fever or exposure to coronavirus. Patient is lethargic with decreased responsiveness. No fever or chills. Has history of gastric cancer but prognosis is not known patient also had CVA with right-sided residual weakness - Past Medical History Previous Medical History?: Yes Hx Hypertension: Yes Hx CVA: Yes (rt weakness) Hx of Cancer: Yes (Stomach cancer) Hx Psychiatric Treatment: Yes (major depressive disorder, psychosis) Additional medical history: gout, urine retention - Social History Smoking Status: Unknown if ever smoked - Medications Home Medications: Home Medications Medication Instructions Recorded Confirmed Last Taken Type Baclofen [Lioresal] 10 mg PO BID 03/25/19 04/15/19 Unknown History Colchicine 0.6 mg PO BID 03/25/19 04/15/[address] [Depakote Dr] 125 mg PO Q12HR 03/25/19 04/15/19 Unknown History Duloxetine HCl [Drizalma Sprinkle] 30 mg PO DAILY 03/25/19 04/15/19 Unknown History Gabapentin [Neurontin 250 mg/5 ml] 10 ml PO TID 03/25/19 04/15/19 Unknown History HYDROcodone/APAP 5-325 [[place] 1 each PO Q4HR PRN 03/25/19 04/15/19 Unknown History 5-325 mg TAB] LORazepam [Ativan] 2 mg PO Q6HR PRN 03/25/19 04/15/19 Unknown History Melatonin [Melatonin 5MG CAP] 5 mg PO QHS 03/25/19 04/15/19 Unknown History Tamsulosin [Flomax] 0.4 mg PO QHS 03/25/19 04/15/19 Unknown History carvediloL [Coreg] 12.5 mg PO BID 03/25/19 04/15/19 Unknown History Aspirin EC [Ecotrin] 325 mg PO QDAY tablet 03/28/19 04/15/19 Unknown Rx AtorvaSTATin [Lipitor] 40 mg PO QHS tablet 03/28/19 04/15/19 Unknown Rx Magnesium Hydroxide [Milk of 30 ml PO Q4H PRN oral.liqd 03/28/19 04/15/19 Unknown Rx Magnesia] cefUROXime [Ceftin] 500 mg PO Q12H 2 Days #8 tablet 04/20/19 Unknown Rx Loperamide [Imodium] 2 mg PO Q2H PRN capsule 04/21/19 Unknown Rx Review of Systems ROS: Stated complaint: ALTERED MENTAL STATUS Other details as noted in HPI Comment: Unobtainable due to pts medical conditions Medications and Allergies Allergies Allergy/AdvReac Type Severity Reaction Status Date / Time No Known Allergies Allergy Verified 03/25/19 00:27 Home Medications Medication Instructions Recorded Confirmed Last Taken Type Baclofen [Lioresal] 10 mg PO BID 03/25/19 12/22/19 12/21/19 History Duloxetine HCl [Drizalma Sprinkle] 30 mg PO DAILY 03/25/19 12/22/19 Unknown History Gabapentin [Neurontin 250 mg/5 ml] 10 ml PO TID 03/25/19 12/22/19 Unknown History HYDROcodone/APAP 5-325 [[place] 1 each PO Q4HR PRN 03/25/19 12/22/19 Unknown History 5-325 mg TAB] Melatonin [Melatonin 5MG CAP] 5 mg PO QHS 03/25/19 12/22/19 12/21/19 History Tamsulosin [Flomax] 0.4 mg PO QHS 03/25/19 12/22/19 12/21/19 History carvediloL [Coreg] 25 mg PO DAILY 03/25/19 12/22/19 12/21/19 History Aspirin EC [Ecotrin] 325 mg PO QDAY tablet 03/28/19 12/22/19 12/21/19 Rx AtorvaSTATin [Lipitor] 40 mg PO QHS tablet 03/28/19 12/22/19 12/21/19 Rx Magnesium Hydroxide [Milk of 30 ml PO Q4H PRN oral.liqd 03/28/19 12/22/19 12/21/19 Rx Magnesia] Loperamide [Imodium] 2 mg PO Q2H PRN capsule 04/21/19 12/22/19 Unknown Rx ALPRAZolam [Xanax TAB] 0.5 mg PO BID PRN 12/22/19 12/22/19 12/22/19 History Acetaminophen [Tylenol] 1,000 mg PO PRN 12/22/19 12/22/19 Unknown History Prosource Plus Protein Liquid 30 ml PO DAILY 12/22/19 12/22/19 Unknown History SEROquel 25 mg PO DAILY 12/22/19 12/22/19 12/21/19 History allopurinoL [Zyloprim] 100 mg PO DAILY 12/22/19 12/22/19 12/21/19 History Exam - Constitutional Vitals: Temp Pulse Resp BP Pulse Ox 97.2 F L 64 20 164/107 100 12/22/19 20:32 12/22/19 20:32 12/22/19 20:32 12/22/19 20:32 12/22/19 20:32 General appearance: Present: no acute distress, well-nourished - EENT Eyes: Present: PERRL ENT: hearing intact, clear oral mucosa - Neck Neck: Present: supple, normal ROM - Respiratory Respiratory effort: normal Respiratory: bilateral: CTA - Cardiovascular Heart rate: 88 Rhythm: regular Heart Sounds: Present: S1 & S2. Absent: rub, click - Extremities Extremities: pulses symmetrical, No edema Peripheral Pulses: within normal limits - Abdominal General gastrointestinal: Present: soft, non-tender, non-distended, normal bowel sounds Male genitourinary: Present: normal - Rectal Rectal Exam: deferred - Integumentary Integumentary: Present: clear, warm, dry - Musculoskeletal Musculoskeletal: right sided weakness - Psychiatric Psychiatric: depressed, other - Neurologic Neurologic: CNII-XII intact, focal deficits (Right-sided weakness present 3 x 5 power) HEART Score - HEART Score History: Slightly suspicious Age: 45-65 Troponin: Troponin T 0.016 ng/mL (0.00-0.029) 12/22/19 13:42 Troponin: 1-3x normal limit Results - Labs CBC & Chem 7: 12/22/19 13:42 12/22/19 13:42 Labs: Laboratory Last Values WBC 4.6 K/mm3 (4.5-11.0) 12/22/19 13:42 RBC 4.57 M/mm3 (3.65-5.03) 12/22/19 13:42 Hgb 13.8 gm/dl (11.8-15.2) 12/22/19 13:42 Hct 40.7 % (35.5-45.6) 12/22/19 13:42 MCV 89 fl (84-94) 12/22/19 13:42 MCH 30 pg (28-32) 12/22/19 13:42 MCHC 34 % (32-34) 12/22/19 13:42 RDW 13.9 % (13.2-15.2) 12/22/19 13:42 Plt Count 115 K/mm3 (140-440) L 12/22/19 13:42 Lymph % (Auto) 35.5 % (13.4-35.0) H 12/22/19 13:42 [place] % (Auto) 6.6 % (0.0-7.3) 12/22/19 13:42 Eos % (Auto) 4.0 % (0.0-4.3) 12/22/19 13:42 Baso % (Auto) 0.6 % (0.0-1.8) 12/22/19 13:42 Lymph # (Auto) 1.6 K/mm3 (1.2-5.4) 12/22/19 13:42 [place] # (Auto) 0.3 K/mm3 (0.0-0.8) 12/22/19 13:42 Eos # (Auto) 0.2 K/mm3 (0.0-0.4) 12/22/19 13:42 Baso # (Auto) 0.0 K/mm3 (0.0-0.1) 12/22/19 13:42 Seg Neutrophils % 53.3 % (40.0-70.0) 12/22/19 13:42 Seg Neutrophils # 2.5 K/mm3 (1.8-7.7) 12/22/19 13:42 PT 13.3 Sec. (12.2-14.9) 12/22/19 13:19 INR 0.99 (0.87-1.13) 12/22/19 13:19 APTT 30.9 Sec. (24.2-36.6) 12/22/19 13:19 Sodium 147 mmol/L (137-145) H 12/22/19 13:42 Potassium 4.2 mmol/L (3.6-5.0) 12/22/19 13:42 Chloride 107.5 mmol/L (98-107) H 12/22/19 13:42 Carbon Dioxide 30 mmol/L (22-30) 12/22/19 13:42 Anion Gap 14 mmol/L 12/22/19 13:42 BUN 21 mg/dL (9-20) H 12/22/19 13:42 Creatinine 0.6 mg/dL (0.8-1.3) L 12/22/19 13:42 Estimated GFR > 60 ml/min 12/22/19 13:42 BUN/Creatinine Ratio 35 % 12/22/19 13:42 Glucose 87 mg/dL (75-100) 12/22/19 13:42 Lactic Acid 0.80 mmol/L (0.7-2.0) 12/22/19 13:42 Calcium 9.7 mg/dL (8.4-10.2) 12/22/19 13:42 Total Bilirubin 0.60 mg/dL (0.1-1.2) 12/22/19 13:42 AST 39 units/L (5-40) 12/22/19 13:42 ALT 99 units/L (7-56) H 12/22/19 13:42 Alkaline Phosphatase 67 units/L (35-129) 12/22/19 13:42 Troponin T 0.016 ng/mL (0.00-0.029) 12/22/19 13:42 Total Protein 6.6 g/dL (6.3-8.2) 12/22/19 13:42 Albumin 4.4 g/dL (3.9-5) 12/22/19 13:42 Albumin/Globulin Ratio 2.0 % 12/22/19 13:42 Urine Color Yellow (Yellow) 12/22/19 12:52 Urine Turbidity Clear (Clear) 12/22/19 12:52 Urine pH 8.0 (5.0-7.0) H 12/22/19 12:52 Ur Specific [place] 1.013 (1.003-1.030) 12/22/19 12:52 Urine Protein <15 mg/dl mg/dL (Negative) 12/22/19 12:52 Urine Glucose (UA) 50 mg/dL (Negative) 12/22/19 12:52 Urine Ketones Neg mg/dL (Negative) 12/22/19 12:52 Urine Blood Neg (Negative) 12/22/19 12:52 Urine Nitrite Neg (Negative) 12/22/19 12:52 Urine Bilirubin Neg (Negative) 12/22/19 12:52 Urine Urobilinogen < 2.0 mg/dL (<2.0) 12/22/19 12:52 Ur Leukocyte Esterase Neg (Negative) 12/22/19 12:52 Urine WBC (Auto) 5.0 /HPF (0.0-6.0) 12/22/19 12:52 Urine RBC (Auto) 20.0 /HPF (0.0-6.0) 12/22/19 12:52 U Epithel Cells (Auto) < 1.0 /HPF (0-13.0) 12/22/19 12:52 Urine Bacteria (Auto) 1+ /HPF (Negative) 12/22/19 12:52 Calcium Oxalate Crystal Few 12/22/19 12:52 Urine Mucus 1+ /HPF 12/22/19 12:52 Short CBC 12/22/19 12/22/19 Range/Units 12:31 13:42 WBC 4.6 4.6 (4.5-11.0) K/mm3 Hgb 13.3 13.8 (11.8-15.2) gm/dl Hct 39.6 40.7 (35.5-45.6) % Plt Count 123 L 115 L (140-440) K/mm3 BMP 12/22/19 12/22/19 12:31 13:42 Sodium 145 147 H Potassium 4.0 4.2 Chloride 106.5 107.5 H Carbon Dioxide 28 30 BUN 20 21 H Creatinine 0.7 L 0.6 L Glucose 100 87 Calcium 9.4 9.7 Cardiac Enzymes 12/22/19 Range/Units 13:42 Troponin T 0.016 (0.00-0.029) ng/mL Liver Function 12/22/19 Range/Units 13:42 Total Bilirubin 0.60 (0.1-1.2) mg/dL AST 39 (5-40) units/L ALT 99 H (7-56) units/L Alkaline Phosphatase 67 (35-129) units/L Albumin 4.4 (3.9-5) g/dL Urine 12/22/19 Range/Units 12:52 Urine Color Yellow (Yellow) Urine pH 8.0 H (5.0-7.0) Ur Specific [place]ster 1.013 (1.003-1.030) Urine Protein <15 mg/dl (Negative) mg/dL Urine Glucose (UA) 50 (Negative) mg/dL Microbiology: Microbiology 12/22/19 13:42 Peripheral/Venous Blood Culture - Preliminary Culture in Progress - Imaging and Cardiology EKG: report reviewed (Sinus rhythm no acute ST-T wave changes) Chest x-ray: report reviewed (No acute findings) CT Scan - head: report reviewed (No acute findings) Dela Cruz/IV: Voiding Method Diaper IV Catheter Type [Left Forearm Peripheral IV ] Assessment and Plan Advance Directives: Yes (Full code) VTE prophylaxis?: Chemical Plan of care discussed with patient/family: Yes - Patient Problems (1) Acute metabolic encephalopathy Current Visit: No Status: Acute Plan to address problem: Probably secondary to dehydration and hyponatremia Sodium is 147 Half-normal saline for now (2) Hypernatremia Current Visit: Yes Status: Acute Plan to address problem: IV D5W and half-normal saline Recheck sodium levels Check osmolarity (3) BPH (benign prostatic hyperplasia) Current Visit: Yes Status: Chronic Qualifiers: Lower urinary tract symptom presence: symptoms present Plan to address problem: Continue Flomax (4) Hypertension Current Visit: Yes Status: Chronic Qualifiers: Hypertension type: essential hypertension Qualified Code(s): I10 - E ssential (primary) hypertension Plan to address problem: Continue antihypertensives and adjust medications (5) DVT prophylaxis Current Visit: No Status: Acute Plan to address problem: On heparin and GI prophylaxis
[2019-12-22] MEDS ORDERED: MAGNESIUM HYDROXIDE (MOM) ORAL LIQD UDC PO PRN (21:42)
[2019-12-22] MEDS ORDERED: LOPERAMIDE 2 MG CAP PO PRN (21:42)
[2019-12-22] MEDS ORDERED: HYDROmorphone 1 MG/1 ML INJ IV PRN (21:46)
[2019-12-22] MEDS ORDERED: ACETAMINOPHEN 325 MG TAB PO PRN (21:46)
[2019-12-22] MEDS ORDERED: oxyCODONE /ACETAMINOPHEN 5-325MG TAB PO PRN (21:46)
[2019-12-22] MEDS ORDERED: ONDANSETRON 4 MG/2 ML INJ IV PRN (21:46)
[2019-12-22] MEDS ORDERED: SODIUM CHLORIDE 0.45% 1000 ML 1,000 ML IV SCH (22:00)
[2019-12-22] MEDS ORDERED: ACETAMINOPHEN 500 MG TAB PO PRN (22:00)
[2019-12-22] MEDS: HEPARIN 5,000 UNIT/1 ML VIAL SUB-Q SCH (22:31)
[2019-12-22] MEDS: TAMSULOSIN 0.4 MG CAP PO SCH (22:31)
[2019-12-22] MEDS: BACLOFEN 10 MG TAB PO SCH (22:31)
[2019-12-22] MEDS: cefTRIAXone/NS 2 GM/100 ML 2 GM/100 ML BAG IV SCH (22:31)
[2019-12-22] MEDS: MELATONIN 5 MG TAB PO SCH (22:31)
[2019-12-22] MEDS: FAMOTIDINE 20 MG/2 ML INJ IV SCH (22:32)
--- NOTE | 2019-12-23 08:09 | Progress Note ---
Assessment and Plan Assessment and plan: (1) Acute metabolic encephalopathy Current Visit: No Status: Acute Plan to address problem: Probably secondary to dehydration and hyponatremia Sodium was 147 on admission Half-normal saline for now Sodium is corrected 142 this morning Patient is empirically on IV Rocephin -UA and urinalysis negative -Blood culture is pending, if blood culture is negative I will discontinue Rocephin (2) Hypernatremia Current Visit: Yes Status: Acute Plan to address problem: IV D5W and half-normal saline Sodium is corrected 142 this morning (3) BPH (benign prostatic hyperplasia) Current Visit: Yes Status: Chronic Qualifiers: Lower urinary tract symptom presence: symptoms present Plan to address problem: Continue Flomax (4) Hypertension Current Visit: Yes Status: Chronic Qualifiers: Hypertension type: essential hypertension Qualified Code(s): I10 - Essential (primary) hypertension Plan to address problem: Continue antihypertensives and adjust medications as needed (5) DVT prophylaxis Current Visit: No Status: Acute Plan to address problem: On heparin and GI prophylaxis History Interval history: Patient was seen and evaluated this morning Patient was aphasic Right-sided weakness, and contracture of the extremities Hospitalist Physical - Physical exam Narrative exam: Not in cardiopulmonary distress. The patient appeared well nourished and normally developed. Vital signs as documented. Head exam is unremarkable. No scleral icterus . Neck is without jugular venous distension, thyromegaly, or carotid bruits. Lungs are clear to auscultation. Cardiac exam reveals regular rate and Rhythm. Abdominal exam reveals normal bowel sounds, nontender, no organomegaly. Extremities contracted right upper and lower extremities. 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 chronic right-sided weakness. - Constitutional Vitals: Temp Pulse Resp BP Pulse Ox 97.4 F L 66 20 119/76 98 12/23/19 04:55 12/23/19 04:55 12/23/19 04:55 12/23/19 04:55 12/23/19 04:55 General appearance: Present: no acute distress, well-nourished HEART Score - HEART Score Age: 45-65 Troponin: Troponin T 0.016 ng/mL (0.00-0.029) 12/22/19 13:42 Troponin: 1-3x normal limit Results - Labs CBC & Chem 7: 12/22/19 13:42 12/23/19 07:37 Labs: Laboratory Last Values WBC 4.6 K/mm3 (4.5-11.0) 12/22/19 13:42 RBC 4.57 M/mm3 (3.65-5.03) 12/22/19 13:42 Hgb 13.8 gm/dl (11.8-15.2) 12/22/19 13:42 Hct 40.7 % (35.5-45.6) 12/22/19 13:42 MCV 89 fl (84-94) 12/22/19 13:42 MCH 30 pg (28-32) 12/22/19 13:42 MCHC 34 % (32-34) 12/22/19 13:42 RDW 13.9 % (13.2-15.2) 12/22/19 13:42 Plt Count 115 K/mm3 (140-440) L 12/22/19 13:42 Lymph % (Auto) 35.5 % (13.4-35.0) H 12/22/19 13:42 [place] % (Auto) 6.6 % (0.0-7.3) 12/22/19 13:42 Eos % (Auto) 4.0 % (0.0-4.3) 12/22/19 13:42 Baso % (Auto) 0.6 % (0.0-1.8) 12/22/19 13:42 Lymph # (Auto) 1.6 K/mm3 (1.2-5.4) 12/22/19 13:42 [place] # (Auto) 0.3 K/mm3 (0.0-0.8) 12/22/19 13:42 Eos # (Auto) 0.2 K/mm3 (0.0-0.4) 12/22/19 13:42 Baso # (Auto) 0.0 K/mm3 (0.0-0.1) 12/22/19 13:42 Seg Neutrophils % 53.3 % (40.0-70.0) 12/22/19 13:42 Seg Neutrophils # 2.5 K/mm3 (1.8-7.7) 12/22/19 13:42 PT 13.3 Sec. (12.2-14.9) 12/22/19 13:19 INR 0.99 (0.87-1.13) 12/22/19 13:19 APTT 30.9 Sec. (24.2-36.6) 12/22/19 13:19 Sodium 147 mmol/L (137-145) H 12/22/19 13:42 Potassium 4.2 mmol/L (3.6-5.0) 12/22/19 13:42 Chloride 107.5 mmol/L (98-107) H 12/22/19 13:42 Carbon Dioxide 30 mmol/L (22-30) 12/22/19 13:42 Anion Gap 14 mmol/L 12/22/19 13:42 BUN 21 mg/dL (9-20) H 12/22/19 13:42 Creatinine 0.6 mg/dL (0.8-1.3) L 12/22/19 13:42 Estimated GFR > 60 ml/min 12/22/19 13:42 BUN/Creatinine Ratio 35 % 12/22/19 13:42 Glucose 87 mg/dL (75-100) 12/22/19 13:42 Hemoglobin A1c 5.6 % (4-6) 12/22/19 21:40 Lactic Acid 0.80 mmol/L (0.7-2.0) 12/22/19 13:42 Calcium 9.7 mg/dL (8.4-10.2) 12/22/19 13:42 Total Bilirubin 0.60 mg/dL (0.1-1.2) 12/22/19 13:42 AST 39 units/L (5-40) 12/22/19 13:42 ALT 99 units/L (7-56) H 12/22/19 13:42 Alkaline Phosphatase 67 units/L (35-129) 12/22/19 13:42 Troponin T 0.016 ng/mL (0.00-0.029) 12/22/19 13:42 Total Protein 6.6 g/dL (6.3-8.2) 12/22/19 13:42 Albumin 4.4 g/dL (3.9-5) 12/22/19 13:42 Albumin/Globulin Ratio 2.0 % 12/22/19 13:42 Urine Color Yellow (Yellow) 12/22/19 12:52 Urine Turbidity Clear (Clear) 12/22/19 12:52 Urine pH 8.0 (5.0-7.0) H 12/22/19 12:52 Ur Specific [place] 1.013 (1.003-1.030) 12/22/19 12:52 Urine Protein <15 mg/dl mg/dL (Negative) 12/22/19 12:52 Urine Glucose (UA) 50 mg/dL (Negative) 12/22/19 12:52 Urine Ketones Neg mg/dL (Negative) 12/22/19 12:52 Urine Blood Neg (Negative) 12/22/19 12:52 Urine Nitrite Neg (Negative) 12/22/19 12:52 Urine Bilirubin Neg (Negative) 12/22/19 12:52 Urine Urobilinogen < 2.0 mg/dL (<2.0) 12/22/19 12:52 Ur Leukocyte Esterase Neg (Negative) 12/22/19 12:52 Urine WBC (Auto) 5.0 /HPF (0.0-6.0) 12/22/19 12:52 Urine RBC (Auto) 20.0 /HPF (0.0-6.0) 12/22/19 12:52 U Epithel Cells (Auto) < 1.0 /HPF (0-13.0) 12/22/19 12:52 Urine Bacteria (Auto) 1+ /HPF (Negative) 12/22/19 12:52 Calcium Oxalate Crystal Few 12/22/19 12:52 Urine Mucus 1+ /HPF 12/22/19 12:52 Microbiology: Microbiology 12/22/19 13:42 Peripheral/Venous Blood Culture - Preliminary Culture in Progress Dela Cruz/IV: Voiding Method Incontinent IV Catheter Type [Left Forearm Peripheral IV ] Active Medications - Current Medications Current Medications: Generic Name Dose Route Start Last Admin Trade Name Freq PRN Reason Stop Dose Admin Acetaminophen 1,000 mg 12/22/19 22:00 Tylenol PO Q6H PRN Pain, Mild (1-3) Allopurinol 100 mg 12/23/19 10:00 Zyloprim PO DAILY SELENA Alprazolam 0.5 mg 12/22/19 21:42 Xanax PO BID PRN Anxiety Aspirin 325 mg 12/23/19 10:00 Ecotrin PO QDAY SELENA Atorvastatin Calcium 40 mg 12/22/19 22:00 12/22/19 22:31 Lipitor PO 40 mg QHS SELENA Administration Baclofen 10 mg 12/22/19 22:00 12/22/19 22:31 Lioresal PO 10 mg BID SELENA Administration Carvedilol 25 mg 12/23/19 08:00 Coreg PO DAILY@0800 [facility] Duloxetine HCl 30 mg 12/23/19 10:00 Cymbalta PO QDAY SELENA Famotidine 20 mg 12/22/19 22:00 12/22/19 22:32 Pepcid IV 20 mg BID SELENA Administration Heparin Sodium (Porcine) 5,000 unit 12/22/19 22:00 12/22/19 22:31 Heparin SUB-Q 5,000 unit Q12HR SELENA Administration Hydromorphone HCl 0.5 mg 12/22/19 21:46 Dilaudid IV Q3H PRN Pain , Severe (7-10) Sodium Chloride 1,000 mls @ 100 mls/hr 12/22/19 22:00 Nacl 0.45% 1000 Ml IV DIRECT SELENA Ceftriaxone Sodium 2 gm in 100 mls @ 200 mls/hr 12/22/19 22:00 12/22/19 22:31 Rocephin/Ns 2 Gm/100 Ml IV 200 mls/hr Q24HR SELENA Administration Protocol Loperamide HCl 2 mg 12/22/19 21:42 Imodium PO Q2H PRN Diarrhea Magnesium Hydroxide 30 ml 12/22/19 21:42 Milk Of Magnesia PO Q4H PRN Constipation Melatonin 5 mg 12/22/19 22:00 12/22/19 22:31 Melatonin PO 5 mg QHS SELENA Administration Ondansetron HCl 4 mg 12/22/19 21:46 Zofran IV Q8H PRN Nausea And Vomiting Oxycodone/Acetaminophen 1 tab 12/22/19 21:46 Percocet 5/325 PO Q6H PRN Pain, Moderate (4-6) Quetiapine Fumarate 25 mg 12/23/19 10:00 Seroquel PO DAILY [facility] Sodium Chloride 10 ml 12/22/19 22:00 12/22/19 22:32 Sodium Chloride Flush Syringe 10 Ml IV 10 ml BID SELENA Administration Sodium Chloride 10 ml 12/22/19 21:46 Sodium Chloride Flush Syringe 10 Ml IV PRN PRN LINE FLUSH Tamsulosin HCl 0.4 mg 12/22/19 22:00 12/22/19 22:31 Flomax PO 0.4 mg QHS SELENA Administration
[2019-12-23 08:49] LABS: Alanine Aminotransferase 70 units/L (7-56); Albumin 3.8 g/dL (3.9-5); BUN/Creatinine Ratio 24; Blood Urea Nitrogen 24 mg/dL (9-20); Calcium 9.5 mg/dL (8.4-10.2); Hemolysis Index 108
[2019-12-23] MEDS ORDERED: PROTEIN SUPPLEMENT PO SCH (10:00)
[2019-12-23] MEDS: DULoxetine 30 MG CAP PO SCH (10:20)
[2019-12-23] MEDS: FAMOTIDINE 20 MG/2 ML INJ IV SCH ×2 (10:20→21:20)
[2019-12-23] MEDS: carvediloL 25 MG TAB PO SCH (10:20)
[2019-12-23] MEDS: HEPARIN 5,000 UNIT/1 ML VIAL SUB-Q SCH ×2 (10:20→21:20)
[2019-12-23] MEDS: ASPIRIN EC 325 MG TAB PO SCH (10:20)
[2019-12-23] MEDS: BACLOFEN 10 MG TAB PO SCH ×2 (10:20→21:20)
[2019-12-23] MEDS: QUEtiapine 25 MG TAB PO SCH (10:20)
[2019-12-23] MEDS: allopurinoL 100 MG TAB PO SCH (10:20)
[2019-12-23] MEDS: cefTRIAXone/NS 2 GM/100 ML 2 GM/100 ML BAG IV SCH (10:20)
[2019-12-23] MEDS: MELATONIN 5 MG TAB PO SCH (21:20)
[2019-12-23] MEDS: TAMSULOSIN 0.4 MG CAP PO SCH (21:20)
[2019-12-24] MEDS: ALPRAZolam 0.5 MG TAB PO PRN ×2 (00:55→11:24)
[2019-12-24] MEDS ORDERED: hydrALAZINE 20 MG/1 ML INJ IV ONE (06:20)
--- NOTE | 2019-12-24 07:33 | Progress Note ---
Assessment and Plan Assessment and plan: (1) Acute metabolic encephalopathy Current Visit: No Status: Acute Plan to address problem: Probably secondary to dehydration and hyponatremia Sodium was 147 on admission Half-normal saline for now Sodium is corrected 142 this morning Patient is empirically on IV Rocephin -UA and urinalysis negative -Blood culture is negative, will discontinue Rocephin (2) Hypernatremia Current Visit: Yes Status: Acute Plan to address problem: IV D5W and half-normal saline Sodium is corrected 142 this morning (3) BPH (benign prostatic hyperplasia) Current Visit: Yes Status: Chronic Qualifiers: Lower urinary tract symptom presence: symptoms present Plan to address problem: Continue Flomax (4) Hypertension Current Visit: Yes Status: Chronic Qualifiers: Hypertension type: essential hypertension Qualified Code(s): I10 - Essential (primary) hypertension Plan to address problem: Continue antihypertensives and adjust medications as needed (5) DVT prophylaxis Current Visit: No Status: Acute Plan to address problem: On heparin and GI prophylaxis Disposition; if his oral intake is adequate patient can be discharged to SNF History Interval history: Patient was seen and evaluated this morning Patient was aphasic Right-sided weakness, and contracture of the extremities Hospitalist Physical - Physical exam Narrative exam: Not in cardiopulmonary distress. The patient appeared well nourished and normally developed. Vital signs as documented. Head exam is unremarkable. No scleral icterus . Neck is without jugular venous distension, thyromegaly, or carotid bruits. Lungs are clear to auscultation. Cardiac exam reveals regular rate and Rhythm. Abdominal exam reveals normal bowel sounds, nontender, no organomegaly. Extremities contracted right upper and lower extremities. 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 chronic right-sided weakness. - Constitutional Vitals: Temp Pulse Resp BP Pulse Ox 97.4 F L 53 L 18 166/96 99 12/24/19 05:33 12/24/19 05:33 12/24/19 05:33 12/24/19 06:53 12/24/19 05:33 General appearance: Present: no acute distress, well-nourished HEART Score - HEART Score Age: 45-65 Troponin: Troponin T 0.016 ng/mL (0.00-0.029) 12/22/19 13:42 Troponin: 1-3x normal limit Results - Labs CBC & Chem 7: 12/22/19 13:42 12/23/19 07:37 Labs: Laboratory Last Values WBC 4.6 K/mm3 (4.5-11.0) 12/22/19 13:42 RBC 4.57 M/mm3 (3.65-5.03) 12/22/19 13:42 Hgb 13.8 gm/dl (11.8-15.2) 12/22/19 13:42 Hct 40.7 % (35.5-45.6) 12/22/19 13:42 MCV 89 fl (84-94) 12/22/19 13:42 MCH 30 pg (28-32) 12/22/19 13:42 MCHC 34 % (32-34) 12/22/19 13:42 RDW 13.9 % (13.2-15.2) 12/22/19 13:42 Plt Count 115 K/mm3 (140-440) L 12/22/19 13:42 Lymph % (Auto) 35.5 % (13.4-35.0) H 12/22/19 13:42 [place] % (Auto) 6.6 % (0.0-7.3) 12/22/19 13:42 Eos % (Auto) 4.0 % (0.0-4.3) 12/22/19 13:42 Baso % (Auto) 0.6 % (0.0-1.8) 12/22/19 13:42 Lymph # (Auto) 1.6 K/mm3 (1.2-5.4) 12/22/19 13:42 [place] # (Auto) 0.3 K/mm3 (0.0-0.8) 12/22/19 13:42 Eos # (Auto) 0.2 K/mm3 (0.0-0.4) 12/22/19 13:42 Baso # (Auto) 0.0 K/mm3 (0.0-0.1) 12/22/19 13:42 Seg Neutrophils % 53.3 % (40.0-70.0) 12/22/19 13:42 Seg Neutrophils # 2.5 K/mm3 (1.8-7.7) 12/22/19 13:42 PT 13.3 Sec. (12.2-14.9) 12/22/19 13:19 INR 0.99 (0.87-1.13) 12/22/19 13:19 APTT 30.9 Sec. (24.2-36.6) 12/22/19 13:19 Sodium 142 mmol/L (137-145) 12/23/19 07:37 Potassium 4.6 mmol/L (3.6-5.0) 12/23/19 07:37 Chloride 103.9 mmol/L (98-107) 12/23/19 07:37 Carbon Dioxide 29 mmol/L (22-30) 12/23/19 07:37 Anion Gap 14 mmol/L 12/23/19 07:37 BUN 24 mg/dL (9-20) H 12/23/19 07:37 Creatinine 1.0 mg/dL (0.8-1.3) D 12/23/19 07:37 Estimated GFR > 60 ml/min 12/23/19 07:37 BUN/Creatinine Ratio 24 % 12/23/19 07:37 Glucose 80 mg/dL (75-100) 12/23/19 07:37 Hemoglobin A1c 5.6 % (4-6) 12/22/19 21:40 Lactic Acid 0.80 mmol/L (0.7-2.0) 12/22/19 13:42 Calcium 9.5 mg/dL (8.4-10.2) 12/23/19 07:37 Total Bilirubin 0.60 mg/dL (0.1-1.2) 12/23/19 07:37 AST 32 units/L (5-40) 12/23/19 07:37 ALT 70 units/L (7-56) H 12/23/19 07:37 Alkaline Phosphatase 56 units/L (35-129) 12/23/19 07:37 Troponin T 0.016 ng/mL (0.00-0.029) 12/22/19 13:42 Total Protein 6.2 g/dL (6.3-8.2) L 12/23/19 07:37 Albumin 3.8 g/dL (3.9-5) L 12/23/19 07:37 Albumin/Globulin Ratio 1.6 % 12/23/19 07:37 Urine Color Yellow (Yellow) 12/22/19 12:52 Urine Turbidity Clear (Clear) 12/22/19 12:52 Urine pH 8.0 (5.0-7.0) H 12/22/19 12:52 Ur Specific [place] 1.013 (1.003-1.030) 12/22/19 12:52 Urine Protein <15 mg/dl mg/dL (Negative) 12/22/19 12:52 Urine Glucose (UA) 50 mg/dL (Negative) 12/22/19 12:52 Urine Ketones Neg mg/dL (Negative) 12/22/19 12:52 Urine Blood Neg (Negative) 12/22/19 12:52 Urine Nitrite Neg (Negative) 12/22/19 12:52 Urine Bilirubin Neg (Negative) 12/22/19 12:52 Urine Urobilinogen < 2.0 mg/dL (<2.0) 12/22/19 12:52 Ur Leukocyte Esterase Neg (Negative) 12/22/19 12:52 Urine WBC (Auto) 5.0 /HPF (0.0-6.0) 12/22/19 12:52 Urine RBC (Auto) 20.0 /HPF (0.0-6.0) 12/22/19 12:52 U Epithel Cells (Auto) < 1.0 /HPF (0-13.0) 12/22/19 12:52 Urine Bacteria (Auto) 1+ /HPF (Negative) 12/22/19 12:52 Calcium Oxalate Crystal Few 12/22/19 12:52 Urine Mucus 1+ /HPF 12/22/19 12:52 Microbiology: Microbiology 12/22/19 13:42 Peripheral/Venous Blood Culture - Preliminary NO GROWTH AFTER 24 HOURS 12/22/19 13:33 Urine,Catheterized - Straight Catheter Urine Culture - Preliminary NO GROWTH AFTER 24 HOURS Dela Cruz/IV: Voiding Method Condom Catheter IV Catheter Type [Left Forearm Peripheral IV ] Active Medications - Current Medications Current Medications: Generic Name Dose Route Start Last Admin Trade Name Freq PRN Reason Stop Dose Admin Acetaminophen 1,000 mg 12/22/19 22:00 Tylenol PO Q6H PRN Pain, Mild (1-3) Allopurinol 100 mg 12/23/19 10:00 12/23/19 10:20 Zyloprim PO 100 mg DAILY SELENA Administration Alprazolam 0.5 mg 12/22/19 21:42 12/24/19 00:55 Xanax PO 0.5 mg BID PRN Administration Anxiety Aspirin 325 mg 12/23/19 10:00 12/23/19 10:20 Ecotrin PO 325 mg QDAY SELENA Administration Atorvastatin Calcium 40 mg 12/22/19 22:00 12/23/19 21:20 Lipitor PO 40 mg QHS SELENA Administration Baclofen 10 mg 12/22/19 22:00 12/23/19 21:20 Lioresal PO 10 mg BID SELENA Administration Carvedilol 25 mg 12/23/19 08:00 12/23/19 10:20 Coreg PO 25 mg DAILY@0800 SELENA Administration Duloxetine HCl 30 mg 12/23/19 10:00 12/23/19 10:20 Cymbalta PO 30 mg QDAY SELENA Administration Famotidine 20 mg 12/22/19 22:00 12/23/19 21:20 Pepcid IV 20 mg BID SELENA Administration Heparin Sodium (Porcine) 5,000 unit 12/22/19 22:00 12/23/19 21:20 Heparin SUB-Q 5,000 unit Q12HR SELENA Administration Hydromorphone HCl 0.5 mg 12/22/19 21:46 Dilaudid IV Q3H PRN Pain , Severe (7-10) Sodium Chloride 1,000 mls @ 75 mls/hr 12/22/19 22:00 12/23/19 11:27 Nacl 0.45% 1000 Ml IV 75 mls/hr DIRECT SELENA Administration Ceftriaxone Sodium 2 gm in 100 mls @ 200 mls/hr 12/22/19 22:00 12/23/19 10:20 Rocephin/Ns 2 Gm/100 Ml IV 200 mls/hr Q24HR SELENA Administration Protocol Loperamide HCl 2 mg 12/22/19 21:42 Imodium PO Q2H PRN Diarrhea Magnesium Hydroxide 30 ml 12/22/19 21:42 Milk Of Magnesia PO Q4H PRN Constipation Melatonin 5 mg 12/22/19 22:00 12/23/19 21:20 Melatonin PO 5 mg QHS SELENA Administration Ondansetron HCl 4 mg 12/22/19 21:46 Zofran IV Q8H PRN Nausea And Vomiting Oxycodone/Acetaminophen 1 tab 12/22/19 21:46 Percocet 5/325 PO Q6H PRN Pain, Moderate (4-6) Quetiapine Fumarate 25 mg 12/23/19 10:00 10/21/20 10:20 Seroquel PO 25 mg DAILY SELENA Administration Sodium Chloride 10 ml 12/22/19 22:00 12/23/19 21:21 Sodium Chloride Flush Syringe 10 Ml IV 10 ml BID SELENA Administration Sodium Chloride 10 ml 12/22/19 21:46 Sodium Chloride Flush Syringe 10 Ml IV PRN PRN LINE FLUSH Tamsulosin HCl 0.4 mg 12/22/19 22:00 12/23/19 21:20 Flomax PO 0.4 mg QHS SELENA Administration Nutrition/Malnutrition Assess - Dietary Evaluation Nutrition/Malnutrition Findings: Nutrition Notes Start: 12/23/19 11:53 Freq: Status: Active Protocol: Document 12/23/19 12:40 BK (Rec: 12/23/19 12:59 DANIKA [id number]) Co-Sign 12/23/19 12:40 LM Nutrition Notes Need for Assessment generated from: therapeutic radiologist,MST,Low BMI Initial or Follow up Assessment Current Diagnosis Hypertension,Stroke Other Pertinent Diagnosis Hypernatremia, AMS, BPH, acute metabolic encephalopathy Current Diet Cardiac Labs/Tests Na 147 BUN 21 Cr 0.6 Pertinent Medications 1/2NS 75 ml/hr Heparin Height 5 ft 10 in Weight 51 kg [place] Body Weight (kg) 75.45 BMI 16.1 Weight Status Underweight Subjective/Other Information 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 Unable to speak with pt d/t aphasia. Per RN, pt does not want to eat and is consuming 25% meals, but will drink anything. Burn Absent Trauma Absent Food Allergy No Current % PO Poor (25-49%) Minimum of two criteria No Reduced Delivery Helper Strength Measurably Reduced (severe) #1 Nutrition Diagnosis Inadequate oral intake Etiology Pt states not wanting food As Evidenced by Signs and Symptoms Pt consuming 25% meals Is patient on ventilator? No Is Patient Ambulatory and/or Out of Bed No REE[facility] 1614.360 Kcal/Kg value to use for calculation 38 Approximate Energy Requirements Using 1938 kcal/Kg Calculation Used for Recommendations Kcal/kg Additional Notes Pro:41-51 g (0.8-1 g/kg) Fluid: 1 ml/kcal Nutrition Intervention Change Diet Order: Continue cardiac diet Add Supplement/Snack (indicate name/kcal Ensure Enlive TID /protein ) Provides kCal: 1,050 Provides Protein (gm) 60 Goal #1 Meet at least 80% energy and protein needs Goal #2 Wt gain/maintenance Anticipated Discharge Needs: Cardiac diet Follow-Up By: 12/25/19 Additional Comments F/U for PO/ONS intakes
[2019-12-24 07:35] LABS: Basophils % (Auto) 0.6 % (0.0-1.8); Eosinophils # (Auto) 0.2 K/mm3 (0.0-0.4); Eosinophils % (Auto) 4.7 % (0.0-4.3); Hematocrit 40.7 % (35.5-45.6); Lymphocytes # (Auto) 1.7 K/mm3 (1.2-5.4); Lymphocytes % (Auto) 37.5 % (13.4-35.0); Mean Corpuscular HGB Conc 32 % (32-34); Mean Corpuscular Volume 94 fl (84-94); Monocytes # (Auto) 0.3 K/mm3 (0.0-0.8); Monocytes % (Auto) 7.2 % (0.0-7.3); Platelet Count 102 K/mm3 (140-440); Red Blood Count 4.33 M/mm3 (3.65-5.03); Red Cell Distribution Width 14.2 % (13.2-15.2)
[2019-12-24 07:36] LABS: Blood Urea Nitrogen 24 mg/dL (9-20); Calcium 8.8 mg/dL (8.4-10.2); Hemolysis Index 15
[2019-12-24 07:44] LABS: BUN/Creatinine Ratio 40
[2019-12-24] MEDS: allopurinoL 100 MG TAB PO SCH (10:53)
[2019-12-24] MEDS: BACLOFEN 10 MG TAB PO SCH ×2 (10:53→21:44)
[2019-12-24] MEDS: QUEtiapine 25 MG TAB PO SCH (10:53)
[2019-12-24] MEDS: carvediloL 25 MG TAB PO SCH (10:53)
[2019-12-24] MEDS: FAMOTIDINE 20 MG TAB PO SCH ×2 (10:53→21:44)
[2019-12-24] MEDS: ASPIRIN EC 325 MG TAB PO SCH (10:53)
[2019-12-24] MEDS: DULoxetine 30 MG CAP PO SCH (10:54)
[2019-12-24] MEDS: cefTRIAXone/NS 2 GM/100 ML 2 GM/100 ML BAG IV SCH (10:54)
[2019-12-24] MEDS: HEPARIN 5,000 UNIT/1 ML VIAL SUB-Q SCH ×2 (10:55→21:46)
--- NOTE | 2019-12-24 11:50 | Discharge Summary ---
Providers - Providers Date of Admission: 12/22/19 17:23 Date of discharge: 12/25/19 Attending physician: CURT NG MD 12/23/19 15:26 Physical Therapy Evaluation and Treat [CONS] Routine Comment: Reason For Exam: Eval and treatment Primary care physician: AERIAL INSTALLER Hospitalization Reason for admission: Acute metabolic encephalopathy, hypernatremia Condition: Fair Hospital course: 59-year-old male with a history of hypertension, BPH and previous CVA presents to the emergency room with altered mental status. Patient is normally aggressive and combative with staff and is on Depakote for behavior control. Patient lives in a group home. No fever or exposure to coronavirus. Patient is lethargic with decreased responsiveness. No fever or chills. Has history of gastric cancer but prognosis is not known patient also had CVA with right-sided residual weakness (1) Acute metabolic encephalopathy Current Visit: No Status: Acute Plan to address problem: Probably secondary to dehydration and hyponatremia Sodium was 147 on admission Half-normal saline for now Sodium is corrected 142 this morning Patient is empirically on IV Rocephin -UA and urinalysis negative -Blood culture is negative, will discontinue Rocephin (2) Hypernatremia Current Visit: Yes Status: Acute Plan to address problem: IV D5W and half-normal saline Sodium is corrected 142 this morning (3) BPH (benign prostatic hyperplasia) Current Visit: Yes Status: Chronic Qualifiers: Lower urinary tract symptom presence: symptoms present Plan to address problem: Continue Flomax (4) Hypertension Current Visit: Yes Status: Chronic Qualifiers: Hypertension type: essential hypertension Qualified Code(s): I10 - Essential (primary) hypertension Plan to address problem: Continue antihypertensives and adjust medications as needed. Patient is at baseline. Disposition: [id number]/[id number] SNF [facility] Time spent for discharge: 32 minutes - Discharge Diagnoses (1) Altered mental status Status: Acute Comment: Secondary to UTI dehydration vasomotor nephropathy resolved back at baseline. Stable for discharge. (2) Hypernatremia Status: Acute (3) BPH (benign prostatic hyperplasia) Status: Chronic Qualifiers: Lower urinary tract symptom presence: symptoms present (4) Hypertension Status: Chronic Qualifiers: Hypertension type: essential hypertension Qualified Code(s): I10 - Essential (primary) hypertension (5) Acute metabolic encephalopathy Status: Acute (6) Acute renal failure Status: Acute Qualifiers: Acute renal failure type: unspecified Qualified Code(s): N17.9 - Acute kid toney failure, unspecified Core Measure Documentation - Palliative Care Palliative Care/ Comfort Measures: Not Applicable - Core Measures Any of the following diagnoses?: none Exam - Physical Exam Narrative exam: Not in cardiopulmonary distress. The patient appeared well nourished and normally developed. Vital signs as documented. Head exam is unremarkable. No scleral icterus . Neck is without jugular venous distension, thyromegaly, or carotid bruits. Lungs are clear to auscultation. Cardiac exam reveals regular rate and Rhythm. Abdominal exam reveals normal bowel sounds, nontender, no organomegaly. Extremities contracted right upper and lower extremities. 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 chronic right-sided weakness. - Constitutional Vitals: Temp Pulse Resp BP Pulse Ox 97.4 F L 53 L 18 166/96 99 12/24/19 05:33 12/24/19 05:33 12/24/19 05:33 12/24/19 06:53 12/24/19 05:33 Plan Activity: advance as tolerated Weight Bearing Status: Weight Bear as Tolerated Diet: advance as tolerated Follow up with: PRIMARY CAREMD [Primary Care Provider] - 3-5 Days
[2019-12-24] MEDS: TAMSULOSIN 0.4 MG CAP PO SCH (21:45)
[2019-12-24] MEDS: MELATONIN 5 MG TAB PO SCH (21:45)
[2019-12-25] MEDS: cefTRIAXone/NS 2 GM/100 ML 2 GM/100 ML BAG IV SCH (10:44)
[2019-12-25] MEDS: FAMOTIDINE 20 MG TAB PO SCH (10:45)
[2019-12-25] MEDS: allopurinoL 100 MG TAB PO SCH (10:45)
[2019-12-25] MEDS: BACLOFEN 10 MG TAB PO SCH (10:45)
[2019-12-25] MEDS: ASPIRIN EC 325 MG TAB PO SCH (10:45)
[2019-12-25] MEDS: HEPARIN 5,000 UNIT/1 ML VIAL SUB-Q SCH (10:45)
[2019-12-25] MEDS: QUEtiapine 25 MG TAB PO SCH (10:45)
[2019-12-25] MEDS: DULoxetine 30 MG CAP PO SCH (10:45)
[2019-12-25] MEDS: carvediloL 25 MG TAB PO SCH (10:47)
[2019-12-25 18:45] VITALS: BP 156/98
== END 2019-12-25 19:28 ==
LOC: ED 12:11 → 3A 17:23
PROVIDERS: ADMIT Internal Medicine; ATTEND Internal Medicine
DX: G93.41 Metabolic encephalopathy (principal); Z20.828 Contact with and (suspected) exposure to other viral communicable diseases; R41.82 Altered mental status, unspecified; N17.0 Acute kidney failure with tubular necrosis; N39.0 Urinary tract infection, site not specified; E86.0 Dehydration; E87.0 Hyperosmolality and hypernatremia; N40.0 Benign prostatic hyperplasia without lower urinary tract symptoms; I10 Essential (primary) hypertension; F32.9 Major depressive disorder, single episode, unspecified; F29 Unspecified psychosis not due to a substance or known physiological condition; M10.9 Gout, unspecified; Z86.73 Personal history of transient ischemic attack (TIA), and cerebral infarction without residual deficits; Z85.028 Personal history of other malignant neoplasm of stomach; Z79.899 Other long term (current) drug therapy
CPT/HCPCS: 36415; 70450; 71045; 80048; 80053; 81001; 82140; 83036; 84484; 85025; 85610; 85730; 87040; 87086; 93005; 96361; 96365; 96366; 96372; 96375; 96376; 97161; 97530; 99285; A9270; G0378; J0360; J0696; J1644; J2270; J2405; J7030; U0003